=== PATIENT | female | born 1995 | race Caucasian/White ===

== ENCOUNTER → 2016-10-22 | Outpatient (CLI) | payer OTHER ==
[2016-10-22 08:05] LABS: Basophils % (A) 1 %; CH 28.9; Eosinophils # (A) 0.2 k/uL (0-0.7); Eosinophils % (A) 2 %; HCT 44.3 % (34.0-46.0); HGB 13.9 gm/dL (11.4-16.0); Luc # (Auto) 0.14; Luc % (Auto) 2; Lymphocytes # (A) 1.9 k/uL (1.0-4.8); Lymphocytes % (A) 26 %; MCH 28.4 pg (25.0-35.0); MCHC 31.4 g/dL (31.0-37.0); MCV 90.7 fL (80.0-100.0); Mean Platelet Volume 7.4; Monocytes # (A) 0.4 k/uL (0-1.0); Monocytes % (A) 5 %; Neutrophils # (A) 4.8 k/uL (1.3-7.7); Neutrophils % (A) 65 %; RBC 4.89 m/uL (3.80-5.40); RDW 13.8 % (11.5-15.5); WBC 7.4 k/uL (3.8-10.6); WBC (Perox) 8.12
[2016-10-22 08:25] LABS: Anion Gap 13 mmol/L; Blood Urea Nitrogen 9 mg/dL (7-17); Calcium 9.6 mg/dL (8.4-10.2); Carbon Dioxide 23 mmol/L (22-30); Chloride 106 mmol/L (98-107); Glucose 96 mg/dL (74-99); Non-African American GFR(MDRD) >60 (>60 ml/min/1.73 sqM); Potassium 4.3 mmol/L (3.5-5.1); Sodium 142 mmol/L (137-145)
== END | disposition home or self-care (01) ==
LOC: LABWHC1 07:22
PROVIDERS: ATTEND Orthopaedic Surgery
DX: Z01.812 Encounter for preprocedural laboratory examination (principal); D61.3 Idiopathic aplastic anemia
CPT/HCPCS: 36415; 80048; 85025

== ENCOUNTER → 2018-01-19 | Outpatient (CLI) | payer OTHER ==
--- NOTE | 2018-01-19 09:35 | XR ---
EXAMINATION TYPE: XR femur LT DATE OF EXAM: 01/19/2018 COMPARISON: 03/22/2016 HISTORY: Left hip pain TECHNIQUE: 4 views are submitted FINDINGS: Postsurgical changes are noted. Chronic appearing deformity the femoral head appears chroni c with mild narrowing of the joint space.. No acute fracture. No dislocation. IMPRESSION: 1. Postsurgical changes.
== END ==
LOC: RADXRMAIN 08:34
PROVIDERS: ATTEND Family Medicine
DX: M25.552 Pain in left hip (principal); Z98.890 Other specified postprocedural states

== ENCOUNTER → 2019-09-29 | Outpatient (CLI) | payer OTHER ==
--- NOTE | 2019-09-29 10:20 | US ---
EXAMINATION TYPE: US OB >= 14 wk fetus DATE OF EXAM: 09/29/2019 COMPARISON: None CLINICAL HISTORY: Z36 CONFIRM DATES Unknown LMP. Dates. TECHNIQUE: Transabdominal (TA) GESTATIONAL AGE / DATING Physician Established: Not yet established Dates by LMP: LMP unknown Dates by First Scan: No previous this is first scan Dates by Current Scan: (15 weeks/2 days) EDC: 03/20/2020 Beta HCG (if available): Not available at this time SURVEY IUP: Single PLACENTA: Anterior PREVIA: No Previa PATIRCK: 12.5 cm Normal CERVICAL LENGTH (transabdominal: norm > 3.0cm): 4.0 cm BIOMETRY PRESENTATION: Transverse lie with head to maternal left BPD: 3.0 cm 15 weeks / 3 days HC: 10.7 cm 15 weeks / 1 days AC: 8.9 cm 15 weeks / 1 days FL: 1.4 cm 14 weeks / 1 days ESTIMATED WEIGHT IN GRAMS: 104.5 grams ESTIMATED WEIGHT IN LBS/OZ: 0 lbs. 4 oz. HC/AC: 1.2 Normal FL/AC: 16.0 HEART RATE: 136 bpm RHYTHM: Normal IMPRESSION: Single viable IUP measuring 15 weeks 2 days. Heart rate 136 bpm and an EDC of 03/20/2020.
== END | disposition home or self-care (01) ==
LOC: RADUSWWP 09:40
PROVIDERS: ATTEND Obstetrics & Gynecology
DX: Z36.89 Encounter for other specified antenatal screening (principal); Z3A.15 15 weeks gestation of pregnancy
CPT/HCPCS: 76805

== ENCOUNTER → 2019-11-12 | Outpatient (CLI) | payer OTHER ==
[2019-11-12 09:38] LABS: HCT 39.6 % (34.0-46.0); MCH 30.1 pg (25.0-35.0); MCHC 32.9 g/dL (31.0-37.0); MCV 91.6 fL (80.0-100.0); Mean Platelet Volume 8.6; Platelet Count 257 k/uL (150-450); RBC 4.32 m/uL (3.80-5.40); WBC 12.6 k/uL (3.8-10.6)
[2019-11-12 16:25] LABS: African American GFR (CKD) 147.9 (60.0-200.0); Non-African American GFR(CKD) 127.6 (60.0-200.0)
[2019-11-12 17:14] LABS: HIV 1 AB Non-Reactive (Non-Reactive); HIV 2 AB Non-Reactive (Non-Reactive); HIV AB P24 Non-Reactive (Non-Reactive); HIV P24 AG Non-Reactive (Non-Reactive)
[2019-11-12 18:34] LABS: Hepatitis B Surface Antigen Non-Reactive (Non-Reactive)
[2019-11-15 04:43] LABS: Toxoplasma Antibody (IgG) <3.0 IU/mL (<7.2); Toxoplasma Antibody (IgM) <3.0 AU/mL (<8.0)
== END | disposition home or self-care (01) ==
LOC: LABWHC1 08:33
PROVIDERS: ATTEND Obstetrics & Gynecology
DX: Z34.82 Encounter for supervision of other normal pregnancy, second trimester (principal)
CPT/HCPCS: 36415; 82565; 82947; 85027; 86762; 86777; 86778; 86780; 86850; 86900; 86901; 87340; 87390

== ENCOUNTER 2020-03-13 13:09 | Outpatient (CLI) | payer OTHER ==
[2020-03-13 15:19] VITALS: BP 105/63; PULSE 102; RESP 16; TEMP 96.8
--- NOTE | 2020-03-13 17:02 | P.MSEPDOC ---
Presenting Problems - Arrival Data Date of Arrival on Unit: 03/13/20 Time of Arrival on Unit: 13:10 Mode of Transport: Ambulatory - Complaint OB-Reason for Admission/Chief Complaint: Possible Onset of Labor, Rule Out SROM, Other Comment: nauesa and vomiting this am. Medical History - Information : 2 Para: 1 Term: 1 : 0 Abortions: Spontaneous or Elective: 0 Number of Living Children: 1 - Gestational Age Gestational Age by AKILAH (wks/days): 39 Weeks and 0 Days - History Comment: no problems to date Review of Systems - Review of Systems Constitutional: No problems Breast: No problems ENT: No problems Cardiovascular: No problems Respiratory: No problems Gastrointestinal: No problems Genitourinary: No problems Musculoskeletal: No problems Neurological: No problems Skin: No problems Vital Signs - Temperature Temperature: 96.8 F Temperature Source: Temporal Artery Scan - Pulse Right Radial Pulse Rate: 102 Pulse Assessment Method: Automatic Cuff - Respirations Respiratory Rate: 16 Oxygen Delivery Method: Room Air O2 Sat by Pulse Oximetry: 98 - Blood Pressure Right Arm Blood Pressure: 105/63 Blood Pressure Mean: 77 Blood Pressure Source: Automatic Cuff Medical Screen Scoring (Pre) - Cervical Exam Dilation: 0 cm = 0 Effacement: Exam Deferred Membranes: Intact - Uterine Contractions Frequency: > 5 minutes apart = 1 Duration: N/A Intensity: N/A - Maternal Vital Signs Maternal Temperature: N/A Maternal Blood Pressure: N/A Signs of Preeclampsia: N/A, Nausea/Vomiting = 1 Maternal Respirations: N/A - Maternal Trauma Maternal Trauma: N/A - Assessment - Baby A Baseline FHR: 120 Heart Rate - NICHD Category: Category I (Normal) = 0 NST: Reactive Position: N/A Station: N/A - Total Score - Baby A Total Score - Baby A: 2 - Total Score - Baby B Total Score - Baby B: 2 - Total Score - Baby C Total Score - Baby C: 2 - Level of Risk - Baby A Level of Risk - Baby A: Low (0-5) - Level of Risk - Baby B Level of Risk - Baby B: Low (0-5) - Level of Risk - Baby C Level of Risk - Baby C: Low (0-5) Physician Notification (Pre) - Physician Notified Physician Notified Date: 03/13/20 Physician Notified Time: 13:20 New Order Received: Yes - Notification Comment Comment: observe, test for srom,nst, call report. Disposition - Disposition OB Disposition: Observe, Discharge to home, Written follow up instructions reviewed Discharge Date: 03/13/20 Discharge Time: 15:00 I agree with the RN Medical Screening Exam: Yes Risk & Benefit of care provided described in d/c instruction: Yes Diagnosis: FALSE LABOR AT OR AFTER 37 COMPLETED WEEKS OF GESTATION
== END 2020-03-13 15:00 | disposition home or self-care (01) ==
LOC: FBPOP 13:09
PROVIDERS: ATTEND Obstetrics & Gynecology
DX: O47.1 False labor at or after 37 completed weeks of gestation (principal); Z3A.39 39 weeks gestation of pregnancy
CPT/HCPCS: 59025; 84112; G0463; 99213

== ENCOUNTER 2020-03-20 06:02 | Inpatient (IN) | payer OTHER ==
[2020-03-20] MEDS ORDERED: TERBUTALINE 1 MG/ML VIAL SQ PRN (06:20)
[2020-03-20] MEDS ORDERED: OXYTOCIN 10 UNIT/ML 1 ML VIAL IM PRN (06:20)
[2020-03-20] MEDS ORDERED: METHYLERGONOVINE 0.2 MG/ML 1 ML AMP IM PRN (06:20)
[2020-03-20] MEDS ORDERED: CARBOPROST TROMETHAMINE 250 MCG/ML 1 ML AMP IM PRN (06:20)
[2020-03-20] MEDS ORDERED: LIDOCAINE 0.5% (PF) 5 MG/ML (50 ML SDV) SQ PRN (06:20)
[2020-03-20] MEDS ORDERED: AMPICILLIN 2,000 MG in SODIUM CHLORIDE 0.9% 100 ML IVPB ONE (06:30)
[2020-03-20] MEDS ORDERED: OXYTOCIN 30 UNITS/500 ML NS 30 UNIT in SALINE 1 500ML.BAG IV SCH (06:30)
[2020-03-20] MEDS: LACTATED RINGERS 1,000 ML IV SCH ×3 (06:32→12:58)
[2020-03-20 06:52] LABS: Basophils % (A) 0 %; Eosinophils # (A) 0.1 k/uL (0-0.7); Eosinophils % (A) 1 %; HCT 35.7 % (34.0-46.0); HGB 11.7 gm/dL (11.4-16.0); Hypochromasia Slight; Lymphocytes # (A) 2.4 k/uL (1.0-4.8); Lymphocytes % (A) 23 %; MCH 28.5 pg (25.0-35.0); MCHC 32.8 g/dL (31.0-37.0); MCV 86.9 fL (80.0-100.0); Monocytes # (A) 0.5 k/uL (0-1.0); Monocytes % (A) 5 %; Neutrophils # (A) 7.4 k/uL (1.3-7.7); Neutrophils % (A) 70 %; Platelet Count 253 k/uL (150-450); RBC 4.11 m/uL (3.80-5.40); RDW 13.4 % (11.5-15.5); WBC 10.5 k/uL (3.8-10.6)
--- NOTE | 2020-03-20 07:16 | P.HPOB ---
History of Present Illness H&P Date: 03/20/20 Chief Complaint: Induction of labor 24-year-old presents at 40 weeks' gestation for induction of labor. Her cervix is 3 cm dilated, 80% effaced, and -2 station. She is thee irregularly. heart tones 135 with moderate variability and reactive. Review of Systems All systems: negative Constitutional: Denies chills, Denies fever Eyes: denies blurred vision, denies pain Ears, nose, mouth and throat: Denies headache, Denies sore throat Cardiovascular: Denies chest pain, Denies shortness of breath Respiratory: Denies cough Gastrointestinal: Denies abdominal pain, Denies diarrhea, Denies nausea, Denies vomiting Genitourinary: Denies dysuria, Denies hematuria Musculoskeletal: Denies myalgias Integumentary: Denies pruritus, Denies rash Neurological: Denies numbness, Denies weakness Psychiatric: Denies anxiety, Denies depression Endocrine: Denies fatigue, Denies weight change Past Medical History Past Medical History: No Reported History Additional Past Medical History / Comment(s): Obstetric history: She's had one previous vaginal delivery. This is her second . She's had care with me since 15 weeks gestation at which time an ultrasound confirmed she is due 03/20/2020. Blood type is O+, amylase negative, rubella immune, RPR nonreactive, hepatitis B-, GBS positive. History of Any Multi-Drug Resistant Organisms: None Reported Additional Past Surgical History / Comment(s): left hip surgery as an infant Past Anesthesia/Blood Transfusion Reactions: No Reported Reaction Past Psychological History: Anxiety, Depression Smoking Status: Never smoker Past Alcohol Use History: None Reported Past Drug Use History: None Reported - Past Family History Mother Family Medical History: Cancer Additional Family Medical History / Comment(s): grandmother breast CA Father Family Medical History: Myocardial Infarction ([place]) Additional Family Medical History / Comment(s): grandfather had [place] Medications and Allergies Home Medications Medication Instructions Recorded Confirmed Type Pnv,Calcium 72/Iron/Folic Acid 1 each PO DAILY 03/13/20 03/20/20 History [ Plus Tablet] Calcium Carbonate [Calcium] 25 mg PO 03/20/20 History Allergies Allergy/AdvReac Type Severity Reaction Status Date / Time No Known Allergies Allergy Verified 03/12/16 17:33 Exam Osteopathic Statement: *. No significant issues noted on an osteopathic structural exam other than those noted in the History and Physical/Consult. Vital Signs Temp Pulse Resp BP Pulse Ox 03/20/20 06:15 96.6 F L 71 18 112/70 99 Intake and Output 03/19/20 03/20/20 03/20/20 22:59 06:59 14:59 Other: Weight 91.626 kg Heart: Regular rate and rhythm Lungs: Clear to auscultation bilaterally Abdomen: Soft, nontender Extremities: Negative Homans sign Results Result Diagrams: 03/20/20 06:20 Assessment and Plan (1) Normal labor Current Visit: Yes Status: Acute Code(s): O80 - ENCOUNTER FOR FULL-TERM UNCOMPLICATED DELIVERY; Z37.9 - OUTCOME OF DELIVERY, UNSPECIFIED SNOMED Code(s ): 84806469 Plan: 1. Admit to family place 2. Induction of labor with amniotomy and Pitocin 3. Anticipate normal vaginal delivery
[2020-03-20] MEDS ORDERED: ROPIVACAINE 100 MG, fentaNYL (PF) 200 MCG in SODIUM CHLORIDE 0.9% 76 ML EPIDURAL ONE (09:56)
[2020-03-20] MEDS ORDERED: AMPICILLIN 1,000 MG in SODIUM CHLORIDE 0.9% 50 ML IVPB SCH (10:30)
[2020-03-20] MEDS ORDERED: SIMETHICONE 80 MG CHEWABLE PO PRN (14:10)
[2020-03-20] MEDS ORDERED: HYDROCORTISONE 2.5% RECTAL CREAM 30 GM TUBE RECTAL PRN (14:10)
[2020-03-20] MEDS ORDERED: LANOLIN CREAM 5 GM TUBE TOPICAL PRN (14:10)
[2020-03-20] MEDS ORDERED: WITCH HAZEL 1 EACH MED..PAD TOPICAL PRN (14:10)
[2020-03-20] MEDS ORDERED: diphenhydrAMINE 50 MG CAP PO PRN (14:10)
[2020-03-20] MEDS ORDERED: diphenhydrAMINE 25 MG CAP PO PRN (14:10)
[2020-03-20] MEDS ORDERED: ZOLPIDEM 5 MG TAB PO PRN (14:10)
[2020-03-20] MEDS ORDERED: diphenhydrAMINE 50 MG/ML 1 ML VIAL IVP PRN ×2 (14:10)
[2020-03-20] MEDS ORDERED: BENZOCAINE/MENTHOL SPRAY 1 GM/SPRAY AEROSOL TOPICAL PRN (14:10)
[2020-03-20] MEDS ORDERED: OXYTOCIN 20 UNITS/1000 ML NS 1,000 ML IV SCH (14:15)
[2020-03-20 15:35] VITALS: RESP 16
[2020-03-20] MEDS: IBUPROFEN 600 MG TAB PO PRN (17:19)
[2020-03-20] MEDS: SENNOSIDES-DOCUSATE SODIUM 1 EACH TAB PO SCH (19:36)
[2020-03-20] MEDS: ACETAMINOPHEN TAB 325 MG TAB PO PRN (22:06)
[2020-03-21] MEDS: IBUPROFEN 600 MG TAB PO PRN ×4 (02:02→21:11)
[2020-03-21] MEDS: ACETAMINOPHEN TAB 325 MG TAB PO PRN ×3 (05:57→17:50)
[2020-03-21 06:13] LABS: Basophils % (A) 0 %; Eosinophils # (A) 0.2 k/uL (0-0.7); Eosinophils % (A) 2 %; HCT 31.4 % (34.0-46.0); HGB 10.2 gm/dL (11.4-16.0); Hypochromasia Slight; Lymphocytes # (A) 2.6 k/uL (1.0-4.8); Lymphocytes % (A) 22 %; MCH 28.5 pg (25.0-35.0); MCHC 32.5 g/dL (31.0-37.0); MCV 87.7 fL (80.0-100.0); Mean Platelet Volume 9.3; Monocytes # (A) 0.6 k/uL (0-1.0); Monocytes % (A) 5 %; Neutrophils # (A) 8.5 k/uL (1.3-7.7); Neutrophils % (A) 70 %; Platelet Count 244 k/uL (150-450); RBC 3.58 m/uL (3.80-5.40); RDW 13.4 % (11.5-15.5); WBC 12.2 k/uL (3.8-10.6)
--- NOTE | 2020-03-21 07:19 | P.PROBDLV ---
Vaginal Delivery Note - . Vaginal Delivery Note: 24-year-old presents at 40 weeks' gestation for induction of labor. Her cervix is 3 cm dilated, 80% effaced, and -2 station. She is thee irregularly. heart tones 135 with moderate variability and reactive. Pitocin was started. Amniotomy performed at 7:03 AM and clear fluid noted. When she was uncomfortable she did get an epidural. Her cervix was completely dilated at 1337. She pushed, delivered a viable female infant over intact perineum under epidural anesthesia at 1351. Head delivered OA, anterior shoulder delivered gentle downward guidance of the posterior shoulder and rest of body. Nose and mouth bulb suctioned, cord clamped and cut, infant placed on mother's abdomen. Apgars 8, 9, weight 7 lbs. 12 oz. Placenta delivered spontaneously, intact with three-vessel cord at 1354. Vagina, cervix, perineum inspected. No lacerations noted. Estimated blood loss 200 mL. Mother and baby in stable condition.
--- NOTE | 2020-03-21 07:37 | P.DS ---
Providers Date of admission: 03/20/20 06:02 Expected date of discharge: 03/21/20 Attending physician: Suzy Blair Primary care physician: Stated None - Discharge Diagnosis(es) (1) Normal labor Current Visit: Yes Status: Resolved (2) Normal vaginal delivery Current Visit: No Status: Acute Hospital Course: Patient presented for induction of labor. She underwent a normal vaginal delivery. course was uncomplicated. She'll be discharged home day #1 in stable condition follow-up with me in 6 weeks. Plan - Discharge Summary New Discharge Prescriptions: New Ibuprofen [Motrin] 600 mg PO Q6HR PRN #30 tab PRN Reason: Mild Pain Or Fever >= 100.5 No Action Pnv,Calcium 72/Iron/Folic Acid [ Plus Tablet] 1 each PO DAILY Calcium Carbonate [Calcium] 25 mg PO Discharge Medication List Pnv,Calcium 72/Iron/Folic Acid [ Plus Tablet] 1 each PO DAILY 03/13/20 [History] Calcium Carbonate [Calcium] 25 mg PO 03/20/20 [History] Ibuprofen [Motrin] 600 mg PO Q6HR PRN #30 tab 03/21/20 [Rx] Follow up Appointment(s)/Referral(s): Suzy Blair DO [Doctor of Osteopathic Medicine] - 6 Weeks Discharge Disposition: HOME SELF-CARE
[2020-03-21] MEDS: SENNOSIDES-DOCUSATE SODIUM 1 EACH TAB PO SCH ×2 (08:57→21:12)
[2020-03-22] MEDS: ACETAMINOPHEN TAB 325 MG TAB PO PRN ×2 (02:11→14:46)
[2020-03-22] MEDS: IBUPROFEN 600 MG TAB PO PRN (07:56)
[2020-03-22 10:32] VITALS: BP 115/74; PULSE 55; TEMP 98.2
[2020-03-22] MEDS: SENNOSIDES-DOCUSATE SODIUM 1 EACH TAB PO SCH (10:32)
== END 2020-03-22 16:00 | disposition home or self-care (01) | DRG 807 ==
LOC: 4FBP 06:02
PROVIDERS: ADMIT Obstetrics & Gynecology; ATTEND Obstetrics & Gynecology
PROC: 3E033VJ Introduction of Other Hormone into Peripheral Vein, Percutaneous Approach (ICD-10-PCS; 2020-03-20)
PROC: 3E0R3BZ Introduction of Anesthetic Agent into Spinal Canal, Percutaneous Approach (ICD-10-PCS; 2020-03-20)
PROC: 10E0XZZ Delivery of Products of Conception, External Approach (ICD-10-PCS; principal; 2020-03-21)
PROC: 10907ZC Drainage of Amniotic Fluid, Therapeutic from Products of Conception, Via Natural or Artificial Opening (ICD-10-PCS; 2020-03-21)
DX: O99.824 Streptococcus B carrier state complicating childbirth (principal); Z37.0 Single live birth; Z3A.40 40 weeks gestation of pregnancy; Z79.899 Other long term (current) drug therapy; Z86.59 Personal history of other mental and behavioral disorders; Z80.3 Family history of malignant neoplasm of breast; Z82.49 Family history of ischemic heart disease and other diseases of the circulatory system
CPT/HCPCS: 85025; 86850; 86900; 86901; 88307

== ENCOUNTER 2021-03-10 20:59 | Inpatient (IN) | payer MEDICAID, OTHER ==
--- NOTE | 2021-03-10 21:28 | ED ---
Psych HPI - General Stated Complaint: Mental Health Time Seen by Provider: 03/10/21 21:03 Source: patient Mode of arrival: ambulatory - History of Present Illness Initial Comments: is 25-year-old woman who presents to have psychiatric evaluation. The patient is concerned that she has been increasingly depressed over the past few days to weeks. She states she has done some cutting recently mainly to the right forearm. She states her family is also told her that she appears to be having some auditory and visual hallucinations. The patient states that she has been using amphetamine recently and believes this is contributing to things. MD Complaint: suicidal ideation, feels depressed -: week(s) Associated Psychiatric Symptoms: delusions Quality: getting worse Improves With: none Worsens With: drug use Context: recent drug abuse Associated Symptoms: denies other symptoms - Related Data Home Medications Medication Instructions Recorded Confirmed Pnv,Calcium 72/Iron/Folic Acid 1 each PO DAILY 03/13/20 03/20/20 [ Plus Tablet] Calcium Carbonate [Calcium] 25 mg PO 03/20/20 Previous Rx's Medication Instructions Recorded Ibuprofen [Motrin] 600 mg PO Q6HR PRN #30 tab 03/21/20 Allergies Allergy/AdvReac Type Severity Reaction Status Date / Time No Known Allergies Allergy Verified 03/10/21 21:02 Review of Systems ROS Statement: Those systems with pertinent positive or pertinent negative responses have been documented in the HPI. ROS Other: All systems not noted in ROS Statement are negative. Constitutional: Denies: fever, chills Respiratory: Denies: cough, dyspnea Cardiovascular: Denies: chest pain, palpitations Gastrointestinal: Denies: abdominal pain, vomiting, diarrhea Genitourinary: Denies: dysuria, hematuria Musculoskeletal: Denies: back pain Skin: Denies: rash Neurological: Denies: headache Psychiatric: Reports: depression, auditory hallucinations, visual hallucinations, suicidal thoughts. Denies: homicidal thoughts Past Medical History Past Medical History: No Reported History Additional Past Medical History / Comment(s): Obstetric history: She's had one previous vaginal delivery. This is her second . She's had care with me since 15 weeks gestation at which time an ultrasound confirmed she is due 03/20/2020. Blood type is O+, amylase negative, rubella immune, RPR nonreactive, hepatitis B-, GBS positive. History of Any Multi-Drug Resistant Organisms: None Reported Additional Past Surgical History / Comment(s): left hip surgery as an Past Anesthesia/Blood Transfusion Reactions: No Reported Reaction Past Psychological History: Anxiety, Depression Smoking Status: Current every day smoker Past Alcohol Use History: None Reported Past Drug Use History: Methamphetamine - Past Family History Mother Family Medical History: Cancer Additional Family Medical History / Comment(s): grandmother breast CA Father Family Medical History: Myocardial Infarction ([place]) Additional Family Medical History / Comment(s): grandfather had [place] General Exam Limitations: no limitations General appearance: alert, in no apparent distress Head exam: Present: atraumatic, normocephalic Eye exam: Present: normal appearance. Absent: scleral icterus, conjunctival injection ENT exam: Present: normal oropharynx Respiratory exam: Present: normal lung sounds bilaterally. Absent: respiratory distress, wheezes, rales, rhonchi, stridor Cardiovascular Exam: Present: regular rate, normal rhythm, normal heart sounds. Absent: systolic murmur, diastolic murmur, rubs, gallop GI/Abdominal exam: Present: soft. Absent: distended, tenderness, guarding, re bound, rigid, mass Extremities exam: Present: normal inspection, normal capillary refill. Absent: pedal edema Back exam: Present: normal inspection Neurological exam: Present: alert, oriented X3, normal gait Psychiatric exam: Present: depressed, suicidal ideation. Absent: agitated, anxious, flat affect, manic, homicidal ideation Skin exam: Present: warm, dry, intact, normal color. Absent: rash Course Vital Signs 03/10/21 21:02 Temperature 98 F Pulse Rate 98 Respiratory 16 Rate Blood Pressure 118/81 O2 Sat by Pulse 100 Oximetry Medical Decision Making - Lab Data Lab Results 03/10/21 03/10/21 Range/Units 21:23 21:23 Urine Color Yellow Urine Appearance Cloudy H (Clear) Urine pH 6.5 (5.0-8.0) Ur Specific [place] 1.030 (1.001-1.035) Urine Protein Trace H (Negative) Urine Glucose (UA) Negative (Negative) Urine Ketones Negative (Negative) Urine Blood Negative (Negative) Urine Nitrite Negative (Negative) Urine Bilirubin Negative (Negative) Urine Urobilinogen 2.0 (<2.0) mg/dL Ur Leukocyte Esterase Negative (Negative) Urine RBC 5 (0-5) /hpf Urine WBC 3 (0-5) /hpf Ur Squamous Epith Cells 3 (0-4) /hpf Amorphous Sediment Rare H (None) /hpf Urine Mucus Moderate H (None) /hpf Urine HCG, Qual Not Detected (Not Detectd) Urine Opiates Screen Not Detected (NotDetected) Ur Oxycodone Screen Not Detected (NotDetected) Urine Methadone Screen Not Detected (NotDetected) Ur Propoxyphene Screen Not Detected (NotDetected) Ur Barbiturates Screen Not Detected (NotDetected) U Tricyclic Antidepress Not Detected (NotDetected) Ur Phencyclidine Scrn Not Detected (NotDetected) Ur Amphetamines Screen Detected H (NotDetected) U Methamphetamines Scrn Detected H (NotDetected) U Benzodiazepines Scrn Not Detected (NotDetected) Urine Cocaine Screen Not Detected (NotDetected) U Marijuana (THC) Screen Detected H (NotDetected) Disposition Clinical Impression: Mood disorder Disposition: ADMITTED IP TO THIS [facility] Condition: Fair Is patient prescribed a controlled substance at d/c from ED?: No
[2021-03-10 21:41] LABS: Amorphous Sediment,Urine Rare /hpf; Appearance,Urine Cloudy (Clear); Bilirubin,Urine Negative (Negative); Blood,Urine Negative (Negative); Color,Urine Yellow; Glucose,Urine (UA) Negative (Negative); Ketones,Urine Negative (Negative); Leukocyte Esterase,Urine Negative (Negative); Mucus,Urine Moderate /hpf; Nitrite,Urine Negative (Negative); PH, Urine 6.5 (5.0-8.0); Protein,Urine Trace (Negative); RBC,Urine 5 /hpf (0-5); Squamous Epithelial Cell,Urine 3 /hpf (0-4); WBC,Urine 3 /hpf (0-5)
[2021-03-10 21:47] LABS: Amphetamine Screen,Urine Detected (NotDetected); Barbiturate Screen,Urine Not Detected (NotDetected); Benzodiazepines Screen,Urine Not Detected (NotDetected); Cocaine Screen,Urine Not Detected (NotDetected); Methadone Screen, Urine Not Detected (NotDetected); Opiate Screen,Urine Not Detected (NotDetected); Oxycodone Screen, Urine Not Detected (NotDetected); Phencyclidine Screen,Urine Not Detected (NotDetected); Tricyclic Antidepressant,Urine Not Detected (NotDetected); Urn Cannabinoid Scrn Detected (NotDetected)
[2021-03-11] MEDS ORDERED: MAG HYDROX/AL HYDROX/SIMETH 30 ML CUP PO PRN (03:57)
[2021-03-11] MEDS ORDERED: MAGNESIUM HYDROXIDE 2,400 MG/10 ML CUP PO PRN (03:57)
[2021-03-11] MEDS ORDERED: HALOPERIDOL LACTATE 5 MG/ML 1 ML VIAL IM PRN (03:59)
[2021-03-11] MEDS ORDERED: LORazepam 2 MG/ML INJ IM PRN (04:04)
[2021-03-11 04:38] VITALS: RESP 18
[2021-03-11] MEDS ORDERED: NICOTINE 21MG/24HR PATCH TRANSDERM SCH (09:00)
--- NOTE | 2021-03-11 11:07 | P.HP ---
Psychiatric H&P - . H&P Date: 03/11/21 History & Physical: IDENTIFYING DATA: Luz is a 25-year-old single female admitted to the psychiatric unit involuntarily with complaints of depression, suicidal ideation and auditory hallucinations. HISTORY OF PRESENT ILLNESS: I reviewed the medical record and interviewed the patient. She has limited recollection of her experiences over the last several days. However, she is aware that her stepfather completed a petition for hospitalization. The petition read that she is depressed and hearing voices telling her to kill herself. She admitted to cutting herself intermittently over the last week (she has a history of self cutting beginning at age 11). She has a history of methamphetamine use. She began using methamphetamine when she was 16 years old. She relapsed to methamphetamine this year. Initially she was smoking methamphetamine but over the last few weeks prior to admission began injecting methamphetamine. She began experiencing worsening feelings of depression and was "hearing voices"she began injecting methamphetamine. She had thoughts of suicide but denied suicide attempts or plan. She described feelings of depression but denied current suicidal thoughts. It was difficult to separate depressive symptoms from that caused by her repeated methamphetamine use. She acknowledged decreased energy, fatigue, poor appetite and impaired sleep. She denied that she has had episodes of elevated mood or sustained irritability outside of use of methamphetamine. She denied persistent and uncontrolled anxiety. She only recently began experiencing auditory hallucinations and command hallucinations. She denied a past history of psychotic symptoms. She smokes marijuana and denied the use of other drugs. Appendectomy UDS was positive for methamphetamine, amphetamine and marijuana. Her breath alcohol level was negative. PAST PSYCHIATRIC HISTORY: She has had no prior psychiatric hospitalizations. She is never met with a mental health professional. She talked about her mother taking her to [facility] when she was 11 years old when she first began cutting. She alleged that she was denied services. PAST MEDICAL HISTORY: She denied a history of chronic medical problems ALLERGIES: Known drug ALLERGIES SUBSTANCE USE HISTORY: She has never been in a substance abuse treatment program or attended AA or NA. She began using methamphetamine she was 16. She described occasional use until this year. Over the last 2 weeks prior to admission she was injecting methamphetamine on a daily. She was supporting her methamphetamine use by stealing from family. She denied that she exchanged sex for drugs or sex for money to buy drugs. FAMILY PSYCHIATRIC/SUBSTANCE USE HISTORY: She was unaware of family history of mental health or substance use problems LEGAL HISTORY: She has pending charges of domestic violence. The father of her two children removed the children from her custody last week and has threatened to petition for full custody because of her methamphetamine use problems. SOCIAL HISTORY: She was born in [place] and raised by her mother and stepfather. Her biological father was not involved in her upbringing. She graduated from high school and attended [employer] for one year. She is currently unemployed. 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 She lives with her grandmother. She has 2 children with same father. The children are currently in the father's custody. MENTAL STATUS EXAM: She presented as a casually groomed young Filipino female with long unkept hair. She made intermittent eye contact but appeared to attend to the interview. She had superficial lacerations on her forearm. She had no prominent physical abnormalities. She had a sad facial expression and cried intermittently during the interview. She was alert and oriented to person, place and time. She has psychomotor retardation but no abnormal movement. He was slow but steady. Her speech was not spontaneous and had markedly decreased rate, volume and rhythm. She had no articulation difficulties. Her affect was depressed and not reactive. She denied current suicidal ideation and wishes. She denied homicidal ideation. She expressed feelings of hopelessness and helplessness. She ruminated about the loss of her children and the consequences of her drug use. She did not express ideas reference, paranoid ideation or delusions. Her thinking was concrete but her associations were coherent, logical goal-directed. She denied hallucinations did not appear to responding to internal stimuli. Global impression of intellect is average. She is aware of her substance use problems and expressed interest in substance use rehabilitation. STRENGTHS: Stable housing, supportive family, good physical health WEAKNESSES: Methamphetamine use, lack of income, problems, potential loss of custody of children IMPRESSION: She is a 25-year-old single Filipino female who presented to unit involuntarily. Her stepfather completed the petition describing depression, auditory hallucinations and suicidal ideation. She has a history of methamphetamine use and over the weeks prior to admission began injecting methamphetamine on at least a daily basis. Her depression and psychotic symptoms developed after she began injecting methamphetamine. As a result her drug or see has incurred legal problems and faces the potential loss of custody of her children. She should be treated inpatient basis with a combination of psychopharmacology and multimodal therapy. 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 Safety precautions. Consult medicine for the initial physical exam and medical history. sheep farm worker to complete initial psychosocial assessment and coordinate discharge and aftercare. Haldol and/or Ativan for agitation, aggression acute psychosis. Collateral information from family. Refer for residential substance abuse rehabilitation. Allergies Allergy/AdvReac Type Severity Reaction Status Date / Time No Known Allergies Allergy Verified 03/11/21 04:40 Vital Signs Temp 97.8 F 03/11/21 03:10 Pulse 89 03/11/21 03:10 Resp 18 03/11/21 03:10 BP 105/73 03/11/21 03:10 Pulse Ox 100 03/11/21 03:10 Intake & Output 03/10/21 03/11/21 03/11/21 18:59 06:59 18:59 Weight 55.5 kg Laboratory Last Values Urine Color Yellow 03/10/21 21:23 Urine Appearance Cloudy (Clear) H 03/10/21 21:23 Urine pH 6.5 (5.0-8.0) 03/10/21 21:23 Ur Specific [place] 1.030 (1.001-1.035) 03/10/21 21:23 Urine Protein Trace (Negative) H 03/10/21 21:23 Urine Glucose (UA) Negative (Negative) 03/10/21 21:23 Urine Ketones Negative (Negative) 03/10/21 21: Urine Blood Negative (Negative) 03/10/21 21:23 Urine Nitrite Negative (Negative) 03/10/21 21: Urine Bilirubin Negative (Negative) 03/10/21 21:23 Urine Urobilinogen 2.0 mg/dL (<2.0) 03/10/21 21:23 Ur Leukocyte Esterase Negative (Negative) 03/10/21 21:23 Urine RBC 5 /hpf (0-5) 03/10/21 21:23 Urine WBC 3 /hpf (0-5) 03/10/21 21:23 Ur Squamous Epith Cells 3 /hpf (0-4) 03/10/21 21:23 Amorphous Sediment Rare /hpf (None) H 03/10/21 21:23 Urine Mucus Moderate /hpf (None) H 03/10/21 21:23 Urine HCG, Qual Not Detected (Not Detectd) 03/10/21 21: Urine Opiates Screen Not Detected (NotDetected) 03/10/21 21:23 Ur Oxycodone Screen Not Detected (NotDetected) 03/10/21 21:23 Urine Methadone Screen Not Detected (NotDetected) 03/10/21 21: Ur Propoxyphene Screen Not Detected (NotDetected) 03/10/21 21:23 Ur Barbiturates Screen Not Detected (NotDetected) 03/10/21 21:23 U Tricyclic Antidepress Not Detected (NotDetected) 03/10/21 21:23 Ur Phencyclidine Scrn Not Detected (NotDetected) 03/10/21 21:23 Ur Amphetamines Screen Detected (NotDetected) H 03/10/21 21:23 U Methamphetamines Scrn Detected (NotDetected) H 03/10/21 21:23 U Benzodiazepines Scrn Not Detected (NotDetected) 03/10/21 21:23 Urine Cocaine Screen Not Detected (NotDetected) 03/10/21 21:23 U Marijuana (THC) Screen Detected (NotDetected) H 03/10/21 21:23 03/11/21 10:47
[2021-03-11] MEDS: LORazepam 1 MG TAB PO PRN ×2 (12:01→20:05)
[2021-03-11] MEDS: ACETAMINOPHEN TAB 325 MG TAB PO PRN (18:29)
[2021-03-11] MEDS: haloperidoL 5 MG TAB PO PRN (20:06)
--- NOTE | 2021-03-12 01:01 | P.MDCNMH ---
History of Present Illness H&P Date: 03/11/21 Chief Complaint: Suicidial ideation Reason for consult -medical H&P Ms. Dotson is a 25-year-old female with no significant past medical history other than left hip surgery as an infant admitted to the psych unit involuntarily with complaints of depression suicidal ideation and auditory hallucination. Patient states that she has been feeling depressed over the past several days, hearing voices to kill herself, so her stepfather dictation her for hospitalization. Patient states that she does not have significant past medical history but does have substance abuse for amphetamines and marijuana. Patient denies having any chest pain or palpitations. No fever chills or rigors. No cough or difficulty in breathing.. No abdominal pain nausea vomiting or diarrhea. No dysuria or hematuria. Patient denies having any weakness of her extremities. On reviewing the patient's vitals temperature 97.8, heart rate 89, respiratory 18, blood pressure 105/73 saturating 100% on room air. Patient had urine analysis that is negative for urine test and negative for leukocyte esterase and nitrites. Urine drug screen is positive for amphetamines methamphetamines and marijuana. Review of Systems REVIEW OF SYSTEMS: CONSTITUTIONAL: No fever, no malaise, no fatigue. HEENT: no headache, no neck stiffness, no blurring of vision CARDIOVASCULAR: No chest pain, palpitations or lower extremity swelling PULMONARY: No cough or SOB GASTROINTESTINAL: No abdominal pain nausea vomiting or diarrhea NEUROLOGICAL: NO weakness of extremities HEMATOLOGICAL: Denies any bleeding or petechiae. GENITOURINARY: Denies any burning micturition, frequency, or urgency. MUSCULOSKELETAL/RHEUMATOLOGICAL: Denies any joint pain, swelling, or any muscle pain. ENDOCRINE: denies dysuria or hematuria The rest of the 14-point review of systems is negative. Past Medical History Past Medical History: No Reported History Additional Past Medical History / Comment(s): Obstetric history: She's had one previous vaginal delivery. This is her second . She's had care with me since 15 weeks gestation at which time an ultrasound confirmed she is due 03/20/2020. Blood type is O+, amylase negative, rubella immune, RPR nonreactive, hepatitis B-, GBS positive. History of Any Multi-Drug Resistant Organisms: None Reported Additional Past Surgical History / Comment(s): left hip surgery as an infant Past Anesthesia/Blood Transfusion Reactions: No Reported Reaction Past Psychological History: Anxiety, Depression Smoking Status: Never smoker Past Alcohol Use History: None Reported Past Drug Use History: Methamphetamine - Past Family History Mother Family Medical History: Cancer Additional Family Medical History / Comment(s): grandmother breast CA Father Family Medical History: Myocardial Infarction ([place]) Additional Family Medical History / Comment(s): grandfather had [place] Medications and Allergies Home Medications Medication Instructions Recorded Confirmed Type Pnv,Calcium 72/Iron/Folic Acid 1 each PO DAILY 03/13/20 03/11/21 History [ Plus Tablet] Calcium Carbonate [Calcium] 25 mg PO DAILY 03/20/20 03/11/21 History Ibuprofen [Motrin] 600 mg PO Q6HR PRN #30 tab 03/21/20 03/11/21 Rx Allergies Allergy/AdvReac Type Severity Reaction Status Date / Time No Known Allergies Allergy Verified 03/11/21 04:40 Physical Exam Vitals: Vital Signs Temp Pulse Pulse Resp BP BP Pulse Ox 03/11/21 03:10 97.8 F 89 18 105/73 100 03/10/21 21:02 98 F 98 16 118/81 100 Intake and Output 03/10/21 03/11/21 03/11/21 22:59 06:59 14:59 Other: Weight 56.245 kg 55.5 kg PHYSICAL EXAMINATION: GENERAL: No distress HEENT: Pupils are round and equally reacting to light. EOMI. No scleral icterus. No conjunctival pallor. CARDIOVASCULAR: S1 and S2 present. No murmurs, rubs, or gallops. PULMONARY: Bilateral breath sounds are positive. No wheeze or crackles. ABDOMEN: Soft, nontender, normal bowel sounds. No guarding or rigidity. MUSCULOSKELETAL: No joint swelling or deformity. EXTREMITIES: No edema NEUROLOGICAL: Gross neurological examination did not reveal any focal deficits. SKIN:No rash Cranial Nerve Examination - Cranial Nerves Cranial Nerve II- Optic: Intact Cranial Nerve III- Oculomotor: Intact Cranial Nerve IV- Trochlear: Intact Cranial Nerve V- Trigeminal: Intact Cranial Nerve - Abducens: Intact Cranial Nerve VII- Facial: Intact Cranial Nerve VIII- Auditory: Intact Cranial Nerve IX- Glossopharyngeal: Intact Cranial Nerve X- Vagus: Intact Cranial Nerve XI- Accessory: Intact Cranial Nerve XII- Hypoglossal: Intact Results Labs: Abnormal Lab Results - Last 24 Hours (Table) 03/10/21 Range/Units 21:23 Urine Appearance Cloudy H (Clear) Urine Protein Trace H (Negative) Amorphous Sediment Rare H (None) /hpf Urine Mucus Moderate H (None) /hpf Ur Amphetamines Screen Detected H (NotDetected) U Methamphetamines Scrn Detected H (NotDetected) U Marijuana (THC) Screen Detected H (NotDetected) Assessment and Plan Assessment: ASSESSMENT Acute depressive disorder Urine drug screen positive for amphetamines, methamphetamines and marijuana Chronic left hip pain PLAN: Patient does not have chronic medical conditions and takes ibuprofen as needed for her left hip pain. To continue with ibuprofen as needed for pain. Management as per Psych team for her acute depressive disorder. Will follow the patient on as-needed basis. Thank you for the consultation.
[2021-03-12 08:38] LABS: Basophils # (A) 0.1 k/uL (0-0.2); Basophils % (A) 1 %; Eosinophils # (A) 0.4 k/uL (0-0.7); Eosinophils % (A) 6 %; HCT 42.1 % (34.0-46.0); HGB 13.9 gm/dL (11.4-16.0); Lymphocytes # (A) 3.1 k/uL (1.0-4.8); Lymphocytes % (A) 44 %; MCH 30.8 pg (25.0-35.0); MCV 93.4 fL (80.0-100.0); Monocytes # (A) 0.4 k/uL (0-1.0); Monocytes % (A) 5 %; Neutrophils # (A) 2.9 k/uL (1.3-7.7); Neutrophils % (A) 41 %; Platelet Count 247 k/uL (150-450); RDW 13.7 % (11.5-15.5); WBC 6.9 k/uL (3.8-10.6)
[2021-03-12 08:50] LABS: ALT 19 U/L (4-34); AST 24 U/L (14-36); African American GFR (CKD) >90 (>60 ml/min/1.73 sqM); Albumin 3.8 g/dL (3.5-5.0); Alkaline Phosphatase 90 U/L (38-126); Anion Gap 6 mmol/L; Blood Urea Nitrogen 15 mg/dL (7-17); Calcium 9.1 mg/dL (8.4-10.2); Carbon Dioxide 28 mmol/L (22-30); Chloride 104 mmol/L (98-107); Glucose 99 mg/dL (74-99); Non-African American GFR(CKD) >90 (>60 ml/min/1.73 sqM); Potassium 4.2 mmol/L (3.5-5.1); Sodium 138 mmol/L (137-145); Total Bilirubin 0.2 mg/dL (0.2-1.3)
--- NOTE | 2021-03-12 13:02 | P.PN ---
Progress Note - Text Progress Note Date: 03/12/21 Interval History: Patient was seen lying in her bed this morning and was directable and agreeable to speak with typewriters functional tester in the office. Patient appeared to be depressed and had a constricted affect. She also claims that she's been feeling anxious. She was persistent on discharge and has poor insight into her need for treatment and also her substance use. She was minimizing her methamphetamine use however did claim that she uses it every day. She states that she misses her children and was very hesitant about going to rehab. She claims that "I could lose my kids". She was agreeable to try Prozac today as an antidepressant and have questions about the medication which were answered. She states that she has been sleeping "too much" at night and has been feeling tired during the day. At this time patient denies any suicidal or homical ideations, intent or plan. Patient denies any auditory, visual hallucinations and denies any paranoia or delusions. Patient denies any side effects from the medications and has been compliant with meds. Mental Status Exam: General Appearance: Patient appears to be thin, disheveled, stated age is alert, not cooperative. Behavior: Patient is calmly seated without any agitated behavior. Not cooperative. Constricted Speech: Patient's speech is fluent and nonpressured. Mood/Affect: Mood is depressed and anxious, affect is congruent and constricted. Suicidality/Homicidality: Patient denies having any suicidal or homicidal ideation intent or plan. Perceptions: Patient denies any visual hallucinations and denies any auditory hallucinations Though content/process: Minimizing her substance use and also her need for mental health treatment. Focused on discharge. Memory and concentration: AOX3, grossly intact for the purposes of this session Judgment and insight: Poor Assessment Depressive disorder unspecified, rule out substance-induced depressive disorder vs major depressive disorder Methamphetamine abuse Cannabis use disorder Plan: -Patient continues to meet criteria for inpatient psychiatric admission for symptom stabilization and safety. Patient has signed adult voluntary form and medication consent and was placed in patient's chart. -Medications: Patient is agreeable to start Prozac 20 mg daily for mood/anxiety today. -When necessary Ativan and Haldol for agitation/aggression. -NRT -not needed this patient does not smoke -SW on board for discharge planning. Encouraged the patient to participate in milieu. Patient is still unsure of whether she wants to go to rehab or do outpatient for her substance use treatment. Likely discharge in 2-3 days.
[2021-03-12] MEDS: FLUoxetine HCL 20 MG CAP PO SCH (13:38)
[2021-03-12 14:48] LABS: Chol/HDL Ratio 3.03; Cholesterol 109 mg/dL (0-200); LDL Cholesterol,Calculated 56.2 mg/dL (0.0-131.0)
[2021-03-12 16:31] LABS: Hemoglobin A1C 5.5 % (4.0-6.0)
[2021-03-12] MEDS: LORazepam 1 MG TAB PO PRN (21:47)
[2021-03-12] MEDS: haloperidoL 5 MG TAB PO PRN (22:39)
[2021-03-13 07:29] VITALS: TEMP 97.7
[2021-03-13] MEDS: FLUoxetine HCL 20 MG CAP PO SCH (08:59)
[2021-03-13] MEDS ORDERED: LORazepam 0.5 MG TAB PO PRN (10:27)
[2021-03-13] MEDS ORDERED: MELATONIN 3 MG TABLET PO PRN (10:28)
--- NOTE | 2021-03-13 10:44 | P.PN ---
Progress Note - Text Progress Note Date: 03/13/21 Interval History: Patient was seen lying in her bed this morning and was directable and agreeable to speak with chief writer in the office. She was difficult to awaken this morning. She continues to have a depressed affect and was tearful at times when talking about her kids. She states that she was hearing voices last night and took a Haldol and was feeling "extra tired" this morning. She continues to not go to groups and not participate or be visible on the unit and mainly isolated in her room. She continues to be impulsive and have poor insight and preoccupied with discharge. She catastrophizes her situation and misinterprets what the plan is for her treatment. Patient appeared to be depressed and had a constricted affect. She continues to claim the she does not want to go to rehab and wants to go home to her kids. At this time patient denies any suicidal or homical ideations, intent or plan. Patient denies any auditory, visual hallucinations and denies any paranoia or delusions. Patient denies any side effects from the medications and has been compliant with meds. Mental Status Exam: General Appearance: Patient appears to be thin, disheveled, stated age is alert, not cooperative. Argumentative Behavior: Patient is calmly seated without any agitated behavior. Argumentative Speech: Patient's speech is fluent and nonpressured. Mood/Affect: Mood is "the same", affect is congruent and tearful Suicidality/Homicidality: Patient denies having any suicidal or homicidal ideation intent or plan. Perceptions: Patient denies any visual hallucinations and denies any auditory hallucinations Though content/process: Minimizing her substance use and also her need for [facility] treatment. Focused on discharge. Memory and concentration: AOX3, grossly intact for the purposes of this session Judgment and insight: Poor Assessment Major depressive disorder with psychotic features Methamphetamine abuse Cannabis use disorder Plan: -Patient continues to meet criteria for inpatient psychiatric admission for symptom stabilization and safety. Patient has signed adult voluntary form and medication consent and was placed in patient's chart. -Medications: increase Prozac 40 mg daily for mood/anxiety today. added prolixin 2mg qhs for psychotic features. added melatonin 3mg qhs prn for insomnia -When necessary Ativan and Haldol for agitation/aggression. -NRT -not needed this patient does not smoke -SW on board for discharge planning. Encouraged the patient to participate in milieu. Patient is still unsure of whether she wants to go to rehab or do outpatient for her substance use treatment, SW to give patient access line to call for rehab appointment. Likely discharge in 2-3 days.
[2021-03-14] MEDS: FLUoxetine HCL 20 MG CAP PO SCH (09:12)
[2021-03-14] MEDS: ACETAMINOPHEN TAB 325 MG TAB PO PRN (11:26)
--- NOTE | 2021-03-14 16:09 | P.PN ---
Progress Note - Text Progress Note Date: 03/14/21 S&O: Patient was seen for routine follow-up examination in the office. She is polite and cooperative. She is eager to go home and be with her one and 5-year-old kids. She said she has called the rehab places and is waiting to hear from them. Apparently they want her charts before they can decide. Patient is on Prozac and Prolixin. She said she never felt depressed and does not hear voices or get paranoid when she is not using meth. She was advised to discuss her medications with her psychiatrist. She denies any adverse effects from her medications. She does not have any other complaints or concerns. This is the right ambulatory female with good hygiene. She is polite and millie ative. She does not show any psychomotor agitation or retardation. Her speech is spontaneous relevant and goal-directed. Her mood is euthymic to tearful and affect is appropriate. She denies hallucinations or delusional thinking suicidal and homicidal ideas. She wants to go through the rehab and also wants to be with her children. She is well oriented with good memory concentration general fund of knowledge. A&P: She is improving and waiting to hear from rehab place. Continue current medications and therapy. She will discuss her medications with her psychiatrist.
[2021-03-15 07:00] VITALS: BP 100/59; PULSE 66
[2021-03-15] MEDS: FLUoxetine HCL 20 MG CAP PO SCH (08:38)
--- NOTE | 2021-03-15 10:13 | P.DS ---
Providers Date of admission: 03/11/21 02:35 Expected date of discharge: 03/15/21 Attending physician: Raul Barrientos MD Consults: 03/11/21 03:57 Consult Physician Routine Consulting Provider: Wei Rodrigez Consult Reason/Comments: h and p Do you want consulting provider notified?: Yes Primary care physician: [facility] Course: Patient had her psychiatric history and physical and also had a physical examination by Dr. Gallegos. After her psychiatric evaluation she was started on Prozac 40 mg a day and Prolixin 2 mg at bedtime for mood and psychosis. Her mood improved and her psychotic symptoms disappeared. He did not have any adverse effects from Prozac or Prolixin except initially then she was feeling a little bit tired. She said she did not have any psychotic symptoms or depression when she was not abusing drugs at all. She was counseled about all these things and it was agreed to discontinue her Prozac and Prolixin. She also received group therapy and individual therapy. She was counseled about the impact of substance abuse especially stimulant on her health and she agreed not to abuse it anymore. She also agreed to go through a rehab. She is scheduled to attend rehab within the next 10-15 days. She also agreed to continue her [facility] appointments starting on the 12th of this month. 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 Health Concerns: Not applicable Pertinent Studies: None Procedures: None Patient Condition at Discharge: Good Plan - Discharge Summary Discharge Rx Participant: No New Discharge Prescriptions: No Action Pnv,Calcium 72/Iron/Folic Acid [ Plus Tablet] 1 each PO DAILY Calcium Carbonate [Calcium] 25 mg PO DAILY Ibuprofen [Motrin] 600 mg PO Q6HR PRN #30 tab PRN Reason: Mild Pain Or Fever >= 100.5 Discharge Medication List Pnv,Calcium 72/Iron/Folic Acid [ Plus Tablet] 1 each PO DAILY 03/13/20 [History] Calcium Carbonate [Calcium] 25 mg PO DAILY 03/20/20 [History] Ibuprofen [Motrin] 600 mg PO Q6HR PRN #30 tab 03/21/20 [Rx] Follow up Appointment(s)/Referral(s): Wei Rodrigez MD [Primary Care Provider] - 1-2 days Activity/Diet/Wound Care/Special Instructions: Activity and diet as tolerated. Avoid the use of street drugs and alcohol. Take all medications as prescribed. When you are in need of refills on your medications please contact your medical provider and/or outpatient psychiatrist to have this done. Please go to scheduled outpatient appointment for aftercare treatment. If symptoms return or become worse, call the crisis line at and/or go to the nearest emergency room for evaluation. Discharge Disposition: HOME SELF-CARE
== END 2021-03-15 13:56 | disposition home or self-care (01) | DRG 885 ==
LOC: EC 20:59 → 3MHU 03-11 02:35
PROVIDERS: ADMIT Psychiatry & Neurology Psychiatry; ATTEND Psychiatry & Neurology Psychiatry
DX: F32.3 Major depressive disorder, single episode, severe with psychotic features (principal); R45.851 Suicidal ideations; F15.24 Other stimulant dependence with stimulant-induced mood disorder; F12.10 Cannabis abuse, uncomplicated; F17.200 Nicotine dependence, unspecified, uncomplicated; Z56.0 Unemployment, unspecified; Z65.3 Problems related to other legal circumstances; Z91.5 Personal history of self-harm
CPT/HCPCS: 80053; 80061; 80306; 81001; 81025; 82075; 83036; 84443; 85025; 99285

== ENCOUNTER → 2021-05-16 | Outpatient (CLI) | payer OTHER | END | disposition home or self-care (01) | LOC: LABWHC1 13:21 | PROVIDERS: ATTEND General Practice | DX: O02.81 Inappropriate change in quantitative human chorionic gonadotropin (hCG) in early pregnancy (principal); Z3A.00 Weeks of gestation of pregnancy not specified | CPT/HCPCS: 36415; 84702 ==

== ENCOUNTER 2021-05-27 21:28 | Emergency (ER) | payer OTHER ==
[2021-05-27 21:40] VITALS: TEMP 98
[2021-05-27 23:05] LABS: Basophils # (A) 0.1 k/uL (0-0.2); Basophils % (A) 1 %; Eosinophils # (A) 0.2 k/uL (0-0.7); Eosinophils % (A) 2 %; HCT 40.2 % (34.0-46.0); HGB 13.6 gm/dL (11.4-16.0); Lymphocytes # (A) 2.4 k/uL (1.0-4.8); Lymphocytes % (A) 22 %; MCHC 33.8 g/dL (31.0-37.0); MCV 91.6 fL (80.0-100.0); Mean Platelet Volume 7.7; Monocytes # (A) 0.5 k/uL (0-1.0); Monocytes % (A) 5 %; Neutrophils # (A) 7.6 k/uL (1.3-7.7); Neutrophils % (A) 70 %; Platelet Count 327 k/uL (150-450); RBC 4.38 m/uL (3.80-5.40); RDW 13.7 % (11.5-15.5); WBC 10.9 k/uL (3.8-10.6)
--- NOTE | 2021-05-27 23:12 | US ---
EXAMINATION TYPE: Transabdominal DATE OF EXAM: 05/27/2021 11:04 PM COMPARISON: NONE CLINICAL HISTORY: bleeding/cramping, 10wks. Bleeding and cramping x 1 day EXAM PERFORMED: Transabdominal (TA) EXAM MEASUREMENTS: GESTATIONAL AGE / DATING Physician Established: Not yet established Dates by LMP: LMP unknown Dates by First Scan: No previous this is first scan Dates by Current Scan for: (7 weeks/2 days) EDC: 01/11/2022 MATERNAL ANATOMY Uterus: 9.9 x 5.5 x 6.8cm Right Ovary: 2.5 x 1.6 x 1.4cm Left Ovary: 2.9 x 1.7 x 1.3cm Post CDS / Adnexa: wnl Presence of free fluid: no Presence of corpus luteal cyst: not seen Presence of subchorionic bleed: yes - 3.7 x 1.3 x 2.7cm GESTATION / SURVEY CRL: 1.1cm (7 weeks/2 days) Yolk Sac (normal less than 6mm): not seen IUP: Demise Date of LMP: Unknown Beta HcG (if available): Not available at time of exam IMPRESSION: There is intrauterine demise at approximately 7 weeks and 2 days. There is subchorionic hemorrh age.
[2021-05-27 23:23] LABS: ALT 19 U/L (4-34); AST 24 U/L (14-36); African American GFR (CKD) >90 (>60 ml/min/1.73 sqM); Albumin 4.4 g/dL (3.5-5.0); Alkaline Phosphatase 72 U/L (38-126); Anion Gap 9 mmol/L; Blood Urea Nitrogen 12 mg/dL (7-17); Calcium 9.5 mg/dL (8.4-10.2); Carbon Dioxide 26 mmol/L (22-30); Chloride 102 mmol/L (98-107); Glucose 87 mg/dL (74-99); Non-African American GFR(CKD) >90 (>60 ml/min/1.73 sqM); Potassium 3.7 mmol/L (3.5-5.1); Sodium 137 mmol/L (137-145); Total Bilirubin 0.4 mg/dL (0.2-1.3)
[2021-05-27 23:40] LABS: HCG,Quantitative Serum 8428.4 mIU/mL
--- NOTE | 2021-05-27 23:45 | ED ---
Female Urogenital HPI - General Chief complaint: Vaginal Bleeding Stated complaint: vaginal bleeding, 10 weeks preg Time Seen by Provider: 05/27/21 21:45 Source: patient Mode of arrival: ambulatory - History of Present Illness Initial comments: Patient is a 25-year-old female presenting to the emergency Department with complaints of vaginal bleeding started about an hour prior to arrival. She is currently a approximately 10 weeks . . She's been having some mil d abdominal cramping over the last couple days but did not think anything of it. She went to use the restroom today and wiped and noticed some darker colored blood. She denies any fevers or chills,abdominal pain, no nausea or vomiting. She has not yet seen her [employer]BER for this. She used to go see Dr. Blair however they stated they would not see her secondary her background of using drugs. She was going to see an VULCAN CREWMEMBER out of [facility]. She denies any chest pain or shortness of breath. She has no further complaints. - Related Data Home Medications Medication Instructions Recorded Confirmed Pnv,Calcium 72/Iron/Folic Acid 1 each PO DAILY 03/13/20 03/11/21 [ Plus Tablet] Calcium Carbonate [Calcium] 25 mg PO DAILY 03/20/20 03/11/21 Previous Rx's Medication Instructions Recorded Ibuprofen [Motrin] 600 mg PO Q6HR PRN #30 tab 03/21/20 Allergies Allergy/AdvReac Type Severity Reaction Status Date / Time No Known Allergies Allergy Verified 05/27/21 21:40 Review of Systems ROS Statement: Those systems with pertinent positive or pertinent negative responses have been documented in the HPI. ROS Other: All systems not noted in ROS Statement are negative. Past Medical History Past Medical History: No Reported History Additional Past Medical History / Comment(s): Obstetric history: She's had one previous vaginal delivery. This is her second . She's had care with me since 15 weeks gestation at which time an ultrasound confirmed she is due 03/20/2020. Blood type is O+, amylase negative, rubella immune, RPR nonreactive, hepatitis B-, GBS positive. History of Any Multi-Drug Resistant Organisms: None Reported Additional Past Surgical History / Comment(s): left hip surgery as an Past Anesthesia/Blood Transfusion Reactions: No Reported Reaction Past Psychological History: Anxiety, Depression Smoking Status: Never smoker Past Alcohol Use History: None Reported Past Drug Use History: Methamphetamine - Past Family History Mother Family Medical History: Cancer Additional Family Medical History / Comment(s): grandmother breast [place] Father Family Medical History: Myocardial Infarction ([place]) Additional Family Medical History / Comment(s): grandfather had [place] General Exam - General Exam Comments Initial Comments: GENERAL: Patient is well-developed and well-nourished. Patient is nontoxic and in no acute distress. HEAD: Atraumatic, normocephalic. EYES: Pupils equal round and reactive to light, extraocular movements intact, sclera anicteric, conjunctiva are normal. Eyelids were unremarkable. ENT: Nares patent, oropharynx clear without exudates. Moist mucous membranes. NECK: Normal range of motion, supple without lymphadenopathy or JVD. LUNGS: Unlabored respirations. Breath sounds clear to auscultation bilaterally and equal. No wheezes rales or rhonchi. HEART: Regular rate and rhythm without murmurs, rubs or gallops. ABDOMEN: Soft, nontender, normoactive bowel sounds. No guarding, no rebound. No masses appreciated. : Deferred MUSCULOSKELETAL: Normal extremities with adequate strength and normal range of motion, no pitting or edema. No clubbing or cyanosis. NEUROLOGICAL: Patient is alert and oriented x 3. SKIN: Warm, Dry, normal turgor, no rashes or lesions noted. Course Vital Signs 05/27/21 05/27/21 21:34 23:58 Temperature 98 F 98 F Pulse Rate 79 84 Respiratory 19 18 Rate Blood Pressure 115/78 113/71 O2 Sat by Pulse 98 100 Oximetry Medical Decision Making - Medical Decision Making Patient is a 25-year-old female, currently 10 weeks , presenting with vaginal bleeding and just started about an hour prior to arrival. She has been having some abdominal cramping over the last 2-3 days well. , VUL[employer] CREWMEMBER was Dr. Blair, it will be someone from [facility] according to patient. Labs are within normal limits. ultrasound shows an intrauterine demise at approximately 7 weeks. There is subchorionic hemorrhage as well. Patient's blood type is O+. Patient's hCG Quant was checked on 05/26/2021, it was 32,000, today 8 days later, it is 8400. I discussed the findings with the patient. She will follow up with her [employer]BER. Return parameters were discussed with her and she verbalized understanding. Case discussed with Dr. Nicole. - Lab Data Result diagrams: 05/27/21 22:38 05/27/21 22:38 Lab Results 05/27/21 05/27/21 05/27/21 Range/Units 22:38 22:38 22:38 WBC 10.9 H (3.8-10.6) k/uL RBC 4.38 (3.80-5.40) m/uL Hgb 13.6 (11.4-16.0) gm/dL Hct 40.2 (34.0-46.0) % MCV 91.6 (80.0-100.0) fL MCH 31.0 (25.0-35.0) pg MCHC 33.8 (31.0-37.0) g/dL RDW 13.7 (11.5-15.5) % Plt Count 327 (150-450) k/uL MPV 7.7 Neutrophils % 70 % Lymphocytes % 22 % Monocytes % 5 % Eosinophils % 2 % Basophils % 1 % Neutrophils # 7.6 (1.3-7.7) k/uL Lymphocytes # 2.4 (1.0-4.8) k/uL Monocytes # 0.5 (0-1.0) k/uL Eosinophils # 0.2 (0-0.7) k/uL Basophils # 0.1 (0-0.2) k/uL Sodium 137 (137-145) mmol/L Potassium 3.7 (3.5-5.1) mmol/L Chloride 102 (98-107) mmol/L Carbon Dioxide 26 (22-30) mmol/L Anion Gap 9 mmol/L BUN 12 (7-17) mg/dL Creatinine 0.49 L (0.52-1.04) mg/dL Est GFR (CKD-EPI)AfAm >90 (>60 ml/min/1.73 sqM) Est GFR (CKD-EPI)NonAf >90 (>60 ml/min/1.73 sqM) Glucose 87 (74-99) mg/dL Calcium 9.5 (8.4-10.2) mg/dL Total Bilirubin 0.4 (0.2-1.3) mg/dL AST 24 (14-36) U/L ALT 19 (4-34) U/L Alkaline Phosphatase 72 (38-126) U/L Total Protein 7.0 (6.3-8.2) g/dL Albumin 4.4 (3.5-5.0) g/dL HCG, Quant 8428.4 mIU/mL Urine Color Yellow Urine Appearance Clear (Clear) Urine pH 7.0 (5.0-8.0) Ur Specific Duncan 1.020 (1.001-1.035) Urine Protein Negative (Negative) Urine Glucose (UA) Negative (Negative) Urine Ketones Negative (Negative) Urine Blood Large H (Negative) Urine Nitrite Negative (Negative) Urine Bilirubin Negative (Negative) Urine Urobilinogen <2.0 (<2.0) mg/dL Ur Leukocyte Esterase Moderate H (Negative) Urine RBC 1 (0-5) /hpf Urine WBC 4 (0-5) /hpf Ur Squamous Epith Cells 5 H (0-4) /hpf Urine Mucus Rare H (None) /hpf Blood Type Blood Type Recheck Bld Type Recheck Status 05/27/21 Range/Units 22:38 WBC (3.8-10.6) k/uL RBC (3.80-5.40) m/uL Hgb (11.4-16.0) gm/dL Hct (34.0-46.0) % MCV (80.0-100.0) fL MCH (25.0-35.0) pg MCHC (31.0-37.0) g/dL RDW (11.5-15.5) % Plt Count (150-450) k/uL MPV Neutrophils % % Lymphocytes % % Monocytes % % Eosinophils % % Basophils % % Neutrophils # (1.3-7.7) k/uL Lymphocytes # (1.0-4.8) k/uL Monocytes # (0-1.0) k/uL Eosinophils # (0-0.7) k/uL Basophils # (0-0.2) k/uL Sodium (137-145) mmol/L Potassium (3.5-5.1) mmol/L Chloride (98-107) mmol/L Carbon Dioxide (22-30) mmol/L Anion Gap mmol/L BUN (7-17) mg/dL Creatinine (0.52-1.04) mg/dL Est GFR (CKD-EPI)AfAm (>60 ml/min/1.73 sqM) Est GFR (CKD-EPI)NonAf (>60 ml/min/1.73 sqM) Glucose (74-99) mg/dL Calcium (8.4-10.2) mg/dL Total Bilirubin (0.2-1.3) mg/dL AST (14-36) U/L ALT (4-34) U/L Alkaline Phosphatase (38-126) U/L Total Protein (6.3-8.2) g/dL Albumin (3.5-5.0) g/dL HCG, Quant mIU/mL Urine Color Urine Appearance (Clear) Urine pH (5.0-8.0) Ur Specific Duncan (1.001-1.035) Urine Protein (Negative) Urine Glucose (UA) (Negative) Urine Ketones (Negative) Urine Blood (Negative) Urine Nitrite (Negative) Urine Bilirubin (Negative) Urine Urobilinogen (<2.0) mg/dL Ur Leukocyte Esterase (Negative) Urine RBC (0-5) /hpf Urine WBC (0-5) /hpf Ur Squamous Epith Cells (0-4) /hpf Urine Mucus (None) /hpf Blood Type O Positive Blood Type Recheck O Pos Bld Type Recheck Status No Disposition Clinical Impression: demise Disposition: HOME SELF-CARE Condition: Stable Instructions (If sedation given, give patient instructions): Threatened Miscarriage (ED) Additional Instructions: Please return to the Emergency Department if symptoms worsen or any other concerns. Please follow-up with your [employer] CREWMEMBER. Is patient prescribed a controlled substance at d/c from ED?: No Referrals: Wei Rodrigez MD [Primary Care Provider] - 1-2 days Suzy Blair DO [Doctor of Osteopathic Medicine] - 1-2 days Time of Disposition: 23:45
[2021-05-28 00:01] LABS: Appearance,Urine Clear (Clear); Bilirubin,Urine Negative (Negative); Blood,Urine Large (Negative); Color,Urine Yellow; Glucose,Urine (UA) Negative (Negative); Ketones,Urine Negative (Negative); Leukocyte Esterase,Urine Moderate (Negative); Mucus,Urine Rare /hpf; Nitrite,Urine Negative (Negative); Protein,Urine Negative (Negative); RBC,Urine 1 /hpf (0-5); Squamous Epithelial Cell,Urine 5 /hpf (0-4); Urobilinogen,Urine <2.0 mg/dL (<2.0); WBC,Urine 4 /hpf (0-5)
[2021-05-28 00:03] VITALS: BP 113/71; PULSE 84; RESP 18
== END 2021-05-28 00:03 | disposition home or self-care (01) ==
LOC: EC 21:28
DX: O02.1 Missed abortion (principal); F41.9 Anxiety disorder, unspecified; F32.9 Major depressive disorder, single episode, unspecified; Z3A.10 10 weeks gestation of pregnancy
CPT/HCPCS: 36415; 76801; 80053; 81001; 84702; 85025; 86900; 86901; 99284

== ENCOUNTER 2021-06-01 21:56 | Emergency (ER) | payer OTHER ==
[2021-06-01 22:37] VITALS: RESP 18; TEMP 98.9
[2021-06-01] MEDS ORDERED: SODIUM CHLORIDE 0.9% 1,000 ML IV ONE (22:58)
--- NOTE | 2021-06-01 23:02 | ED ---
General Adult HPI - General Chief complaint: Vaginal Bleeding Stated complaint: Vaginal Bleeding Time Seen by Provider: 06/01/21 22:51 Source: patient, RN notes reviewed, old records reviewed Mode of arrival: ambulatory Limitations: no limitations - History of Present Illness Initial comments: This is a well-appearing 25-year-old female, alert and oriented 4, presents to the emergency room with complaints of vaginal bleeding since May 27. Marely andino was seen in the emergency room and had an ultrasound at that time and was told there was no heartbeat and she had suffered a demise. She was directed to follow up with orthopedics. She states that she could not get in because the power was out. She states that the bleeding has increased and she had been passing large clots one the size of a softball. She continues to have intermittent cramping. She was also told that they would not see her TALENT DEVELOPMENT COORDINATOR office initially related to her meth use. She states she has not used meth in the past 30 days. She does not drink alcohol daily. She does smoke a pack a day. She denies any fevers or nausea or vomiting. She has had some diarrhea. -: days(s) (7) Location: abdomen, pelvis Radiation: back Severity scale (1-10): 9 Quality: other Consistency: intermittent (Cramping) Improves with: none Worsens with: none Associated Symptoms: other (Vaginal bleeding) Treatments Prior to Arrival: none - Related Data Home Medications Medication Instructions Recorded Confirmed Pnv,Calcium 72/Iron/Folic Acid 1 each PO DAILY 03/13/20 03/11/21 [ Plus Tablet] Calcium Carbonate [Calcium] 25 mg PO DAILY 03/20/20 03/11/21 Previous Rx's Medication Instructions Recorded Ibuprofen [Motrin] 600 mg PO Q6HR PRN #30 tab 03/21/20 Allergies Allergy/AdvReac Type Severity Reaction Status Date / Time No Known Allergies Allergy Verified 06/01/21 22:37 Review of Systems ROS Statement: Those systems with pertinent positive or pertinent negative responses have been documented in the HPI. ROS Other: All systems not noted in ROS Statement are negative. Past Medical History Past Medical History: No Reported History Additional Past Medical History / Comment(s): Obstetric history: She's had one previous vaginal delivery. This is her second . She's had care with me since 15 weeks gestation at which time an ultrasound confirmed she is due 03/20/2020. Blood type is O+, amylase negative, rubella immune, RPR nonreactive, hepatitis B-, GBS positive. History of Any Multi-Drug Resistant Organisms: None Reported Additional Past Surgical History / Comment(s): left hip surgery as an Past Anesthesia/Blood Transfusion Reactions: No Reported Reaction Past Psychological History: Anxiety, Depression, PTSD Smoking Status: Current every day smoker Past Alcohol Use History: None Reported Past Drug Use History: Methamphetamine - Past Family History Mother Family Medical History: Cancer Additional Family Medical History / Comment(s): grandmother breast CA Father Family Medical History: Myocardial Infarction ([place]) Additional Family Medical History / Comment(s): grandfather had [place] General Exam Limitations: no limitations General appearance: alert, in no apparent distress Head exam: Present: atraumatic, normocephalic, normal inspection Eye exam: Present: normal appearance, PERRL, EOMI. Absent: scleral icterus, conjunctival injection, periorbital swelling ENT exam: Present: normal exam, normal oropharynx, mucous membranes moist Neck exam: Present: normal inspection, full ROM. Absent: tenderness, meningismus, lymphadenopathy Respiratory exam: Present: normal lung sounds bilaterally. Absent: respiratory distress, wheezes, rales, rhonchi, stridor Cardiovascular Exam: Present: regular rate, normal rhythm, normal heart sounds. Absent: systolic murmur, diastolic murmur, rubs, gallop, clicks GI/Abdominal exam: Present: soft, tenderness (low abdominal and pelvic) External exam: Present: normal external exam. Absent: lesions, lacerations Speculum exam: Present: vaginal bleeding, tissue Extremities exam: Present: normal inspection, full ROM, normal capillary refill. Absent: tenderness, pedal edema, joint swelling, calf tenderness Back exam: Present: tenderness (Lumbar). Absent: CVA tenderness (R), CVA tenderness (L) Neurological exam: Present: alert, oriented X3, CN II-XII intact Psychiatric exam: Present: normal affect, normal mood Skin exam: Present: warm, dry, intact, normal color. Absent: rash Course Vital Signs 06/01/21 22:32 Temperature 98.9 F Pulse Rate 97 Respiratory 18 Rate Blood Pressure 116/76 O2 Sat by Pulse 97 Oximetry Medical Decision Making - Medical Decision Making Patient's hemoglobin and hematocrit is 12.5 and 38.8. Her blood type at last visit is O+. Ultrasound shows demise of the crown to rump of 1.3 cm. Gestational sac and demise not significantly different than recent exam. Hemoglobin and hematocrit is stable. Upon pelvic exam patient expelled a large amount of tissue and clot. She states that the cramping is less than significantly. She'll be discharged home to follow up with TALENT DEVELOPMENT COORDINATOR next week. Directed to return to the emergency room with any new or worsening symptoms including fever, dizziness, increased vaginal bleeding or pain. - Lab Data Result diagrams: 06/01/21 22:59 06/01/21 22:59 Lab Results 06/01/21 06/01/21 Range/Units 22:59 22:59 WBC 13.3 H (3.8-10.6) k/uL RBC 4.12 (3.80-5.40) m/uL Hgb 12.5 (11.4-16.0) gm/dL Hct 38.8 (34.0-46.0) % MCV 94.0 (80.0-100.0) fL MCH 30.4 (25.0-35.0) pg MCHC 32.4 (31.0-37.0) g/dL RDW 13.2 (11.5-15.5) % Plt Count 273 (150-450) k/uL MPV 7.9 Neutrophils % 72 % Lymphocytes % 21 % Monocytes % 5 % Eosinophils % 2 % Basophils % 0 % Neutrophils # 9.5 H (1.3-7.7) k/uL Lymphocytes # 2.7 (1.0-4.8) k/uL Monocytes # 0.6 (0-1.0) k/uL Eosinophils # 0.2 (0-0.7) k/uL Basophils # 0.1 (0-0.2) k/uL Sodium 135 L (137-145) mmol/L Potassium 3.7 (3.5-5.1) mmol/L Chloride 102 (98-107) mmol/L Carbon Dioxide 26 (22-30) mmol/L Anion Gap 7 mmol/L BUN 14 (7-17) mg/dL Creatinine 0.57 (0.52-1.04) mg/dL Est GFR (CKD-EPI)AfAm >90 (>60 ml/min/1.73 sqM) Est GFR (CKD-EPI)NonAf >90 (>60 ml/min/1.73 sqM) Glucose 102 H (74-99) mg/dL Calcium 9.4 (8.4-10.2) mg/dL Magnesium 2.0 (1.6-2.3) mg/dL Disposition Clinical Impression: demise, Vaginal bleeding Disposition: HOME SELF-CARE Condition: Good Additional Instructions: Return to the emergency room with any new or worsening symptoms including fever, increased abdominal pain or increased vaginal bleeding. Follow-up with TALENT DEVELOPMENT COORDINATOR in one week. Is patient prescribed a controlled substance at d/c from ED?: No Referrals: Wei Rodrigez MD [Primary Care Provider] - 1-2 days Shayla Alvarado DO [Doctor of Osteopathic Medicine] - 1-2 days Time of Disposition: 01:38
[2021-06-01 23:13] LABS: Basophils # (A) 0.1 k/uL (0-0.2); Basophils % (A) 0 %; Eosinophils # (A) 0.2 k/uL (0-0.7); Eosinophils % (A) 2 %; HCT 38.8 % (34.0-46.0); HGB 12.5 gm/dL (11.4-16.0); Lymphocytes # (A) 2.7 k/uL (1.0-4.8); Lymphocytes % (A) 21 %; MCH 30.4 pg (25.0-35.0); MCHC 32.4 g/dL (31.0-37.0); Mean Platelet Volume 7.9; Monocytes # (A) 0.6 k/uL (0-1.0); Monocytes % (A) 5 %; Neutrophils # (A) 9.5 k/uL (1.3-7.7); Neutrophils % (A) 72 %; Platelet Count 273 k/uL (150-450); RBC 4.12 m/uL (3.80-5.40); RDW 13.2 % (11.5-15.5); WBC 13.3 k/uL (3.8-10.6)
[2021-06-01 23:26] LABS: African American GFR (CKD) >90 (>60 ml/min/1.73 sqM); Anion Gap 7 mmol/L; Blood Urea Nitrogen 14 mg/dL (7-17); Calcium 9.4 mg/dL (8.4-10.2); Carbon Dioxide 26 mmol/L (22-30); Chloride 102 mmol/L (98-107); Glucose 102 mg/dL (74-99); Non-African American GFR(CKD) >90 (>60 ml/min/1.73 sqM); Potassium 3.7 mmol/L (3.5-5.1); Sodium 135 mmol/L (137-145)
--- NOTE | 2021-06-02 00:28 | US ---
EXAMINATION TYPE: Transabdominal DATE OF EXAM: 06/01/2021 11:43 PM COMPARISON: US 2020 Comparison 05/27/2021 CLINICAL HISTORY: demise; retained products. Bleeding x 5 days, patient states she is passing l arge clots the size of softballs EXAM PERFORMED: Transabdominal (TA) EXAM MEASUREMENTS: GESTATIONAL AGE / DATING Physician Established: Not yet established Dates by LMP: LMP unknown Dates by First Scan: (7 weeks/2 days) EDC: 01/11/2022 Dates by Current Scan for: (7 weeks/3 days) EDC: 01/15/2022 MATERNAL ANATOMY Uterus: 10.2 x 4.9 x 6.6cm Right Ovary: 2.5 x 1.2 x 2.0cm Left Ovary: 2.7 x 1.5 x 1.3cm Post CDS / Adnexa: wnl Presence of free fluid: no Presence of corpus luteal cyst: not seen Presence of subchorionic bleed: 4.8 x 1.3 x 2.1cm Large clot noted within upper portion of vagina GESTATION / SURVEY CRL: 1.3cm (7 weeks/3 days) Yolk Sac (normal less than 6mm): not seen IUP: Demise Date of LMP: Unknown Beta HcG (if available): Not available at time of exam IMPRESSION: There is demise with crown rump length 1.3 cm. Gestational sac and demise not significant ly different than recent exam. There is blood clot in the vagina.
[2021-06-02 02:08] VITALS: PULSE 78
[2021-06-02 02:10] VITALS: BP 98/65
== END 2021-06-02 02:14 | disposition home or self-care (01) ==
LOC: EC 21:56
DX: O02.1 Missed abortion (principal); F41.9 Anxiety disorder, unspecified; F32.9 Major depressive disorder, single episode, unspecified; F43.12 Post-traumatic stress disorder, chronic; F17.200 Nicotine dependence, unspecified, uncomplicated; Z3A.00 Weeks of gestation of pregnancy not specified
CPT/HCPCS: 36415; 76801; 80048; 83735; 85025; 96360; 99284

== ENCOUNTER 2023-10-10 16:40 | Inpatient (IN) | payer OTHER ==
[2023-10-10] MEDS ORDERED: ONDANSETRON 4 MG/2 ML VIAL IVP PRN (17:57)
[2023-10-10] MEDS ORDERED: METHYLERGONOVINE 0.2 MG/ML 1 ML AMP IM PRN (18:00)
[2023-10-10] MEDS ORDERED: OXYTOCIN 30 UNITS/500 ML NS 30 UNIT in SALINE 1 500ML.BAG IV SCH (18:00)
[2023-10-10] MEDS ORDERED: miSOPROStoL 200 MCG TAB PO PRN (18:00)
[2023-10-10] MEDS ORDERED: OXYTOCIN 10 UNIT/ML 1 ML VIAL IM PRN (18:00)
[2023-10-10] MEDS ORDERED: CARBOPROST TROMETHAMINE 250 MCG/ML 1 ML AMP IM PRN (18:00)
[2023-10-10] MEDS ORDERED: TERBUTALINE 1 MG/ML VIAL SQ PRN (18:00)
[2023-10-10] MEDS ORDERED: TRANEXAMIC 1,000 MG/100ML-NACL 1,000 MG in EMPTY BAG 1 BAG IV PRN (18:00)
--- NOTE | 2023-10-10 18:02 | US ---
EXAMINATION TYPE: US OB limited DATE OF EXAM: 10/10/2023 COMPARISON: NONE CLINICAL INDICATION: Female, 27 years old with history of unable to detect heart tones; no feta l heart tones EXAM PERFORMED: Transabdominal (TA) GESTATIONAL AGE / DATING No growth performed on today?s study per ordering physician SURVEY PATRICK: 7.1 cm Ultrasound evidence of premature rupture of membranes? no PRESENTATION: Breech LIE: Longitudinal HEART RATE: unable to detect heart tones IMPRESSION: Findings compatible with demise. Correlate with serial beta hCG and/or follow-up u ltrasound.
--- NOTE | 2023-10-10 18:12 | P.HPOB ---
History of Present Illness H&P Date: 10/10/23 Chief Complaint: contractions. absent heart tones 27-year-old presents at 30 weeks gestation complaining of contractions and brown vaginal discharge. She was thee every 2-3 minutes some of them are hurting and some of them were not. We were unable to get heart tones so ultrasound was called to bedside. Ultrasound showed absent heart tones and baby to be in breech presentation. It was discussed with the patient that she had a demise and there was no heartbeat. The patient expressed complete understanding. She is in the middle of being treated for syphilis and got her first injection of penicillin yesterday. She said that she barely felt the baby move yesterday and was concerned so she ate some ice cream and thought she felt the baby move but wasn't sure if it was maybe a contraction and not movement. Patient has had 2 previous normal vaginal deliveries and 1 miscarriage at 7 weeks. She'll be admitted for induction of labor and delivery of the stillborn fetus. Her cervix is dilated 4 cm, 90% effaced, -3. Review of Systems All systems: negative Constitutional: Denies chills, Denies fever Eyes: denies blurred vision, denies pain Ears, nose, mouth and throat: Denies headache, Denies sore throat Cardiovascular: Denies chest pain, Denies shortness of breath Respiratory: Denies cough Gastrointestinal: Denies abdominal pain, Denies diarrhea, Denies nausea, Denies vomiting Genitourinary: Denies dysuria, Denies hematuria Musculoskeletal: Denies myalgias Integumentary: Denies pruritus, Denies rash Neurological: Denies numbness, Denies weakness Psychiatric: Denies anxiety, Denies depression Endocrine: Denies fatigue, Denies weight change Past Medical History Past Medical History: No Reported History Additional Past Medical History / Comment(s): Obstetric history: 2 previous normal vaginal deliveries and 1 miscarriage at 7 weeks gestation. This is her fourth . She had care with me she waited to get her blood work done until a few weeks ago. Blood type is O+, antibodies negative, rubella immune, RPR and treponemal ab positive, hepatitis B-. Due to the positive syphilis status she was started on IM penicillin and a consult with [facility] was scheduled. History of Any Multi-Drug Resistant Organisms: None Reported Additional Past Surgical History / Comment(s): left hip surgery as an infant Past Anesthesia/Blood Transfusion Reactions: No Reported Reaction Smoking Status: Current every day smoker, Vaper - Past Family History Mother Family Medical History: Cancer Additional Family Medical History / Comment(s): grandmother breast CA Father Family Medical History: Myocardial Infarction ([place]) Additional Family Medical History / Comment(s): grandfather had [place] Medications and Allergies Home Medications Medication Instructions Recorded Confirmed Type DULoxetine HCL [Cymbalta] 30 mg PO HS #30 01/25/22 Rx Nicotine 14Mg/24Hr Patch [Habitrol] 1 patch TRANSDERM DAILY #14 patch 01/25/22 Rx QUEtiapine [SEROquel] 50 mg PO HS #30 tab 01/25/22 Rx Allergies Allergy/AdvReac Type Severity Reaction Status Date / Time No Known Allergies Allergy Verified 10/10/23 16:58 Exam Osteopathic Statement: *. No significant issues noted on an osteopathic structural exam other than those noted in the History and Physical/Consult. Vital Signs Temp Pulse Resp BP Pulse Ox 10/10/23 16:57 97.8 F 105 H 16 126/73 99 Intake and Output 10/10/23 10/10/23 10/10/23 06:59 14:59 22:59 Other: Weight 79.832 kg Heart: Regular rate and rhythm Lungs: Clear to auscultation bilaterally Abdomen: Soft, nontender Extremities: Negative Homans sign Assessment and Plan (1) 30 weeks gestation of Current Visit: Yes Status: Acute Code(s): Z3A.30 - 30 WEEKS GESTATION OF SNOMED Code(s): 03053573 (2) demise, greater than 22 weeks, antepartum Current Visit: Yes Status: Acute Code(s): O36.4XX0 - MATERNAL CARE FOR INTRAUTERINE , NOT APPLICABLE OR UNSP SNOMED Code(s): 120708038 Plan: 1. admit to [facility] 2. TORCH labs 3. PT, PTT, fibrinogen 4. augment labor if necessary 5. anticipate breech vaginal delivery. discussed possible complications with patient
[2023-10-10] MEDS ORDERED: NALBUPHINE 10 MG/ML (10 ML MDV) IV PRN (18:55)
[2023-10-10] MEDS: LACTATED RINGERS 1,000 ML IV SCH ×2 (18:56→19:37)
[2023-10-10 19:23] LABS: Basophils % (A) 0 %; Eosinophils # (A) 0.1 k/uL (0-0.7); Eosinophils % (A) 1 %; HCT 34.1 % (34.0-46.0); HGB 11.1 gm/dL (11.4-16.0); Lymphocytes # (A) 1.5 k/uL (1.0-4.8); Lymphocytes % (A) 12 %; MCH 27.3 pg (25.0-35.0); MCHC 32.5 g/dL (31.0-37.0); MCV 83.8 fL (80.0-100.0); Mean Platelet Volume 10.7; Monocytes # (A) 0.5 k/uL (0-1.0); Monocytes % (A) 4 %; Neutrophils # (A) 10.6 k/uL (1.3-7.7); Neutrophils % (A) 82 %; Platelet Count 273 k/uL (150-450); RBC 4.06 m/uL (3.80-5.40); RDW 13.9 % (11.5-15.5); WBC 12.9 k/uL (3.8-10.6)
[2023-10-10] MEDS ORDERED: ROPIVACAINE 5 MG/ML 30 ML VIAL ONE (19:38)
[2023-10-10] MEDS ORDERED: SODIUM CHLORIDE 0.9% 250 ML BAG ONE (19:38)
[2023-10-10] MEDS ORDERED: fentaNYL (PF) 50 MCG/ML 5 ML AMP ONE (19:38)
[2023-10-10 19:40] LABS: Partial Thromboplastin Time 23.6 sec (22.0-30.0); Prothrombin Time 10.6 sec (10.0-12.5)
[2023-10-10 21:06] LABS: Amphetamine Screen,Urine Detected (NotDetected); Barbiturate Screen,Urine Not Detected (NotDetected); Benzodiazepines Screen,Urine Not Detected (NotDetected); Cocaine Screen,Urine Not Detected (NotDetected); Methadone Screen, Urine Not Detected (NotDetected); Opiate Screen,Urine Not Detected (NotDetected); Oxycodone Screen, Urine Not Detected (NotDetected); Phencyclidine Screen,Urine Not Detected (NotDetected); Tricyclic Antidepressant,Urine Not Detected (NotDetected); Urn Cannabinoid Scrn Not Detected (NotDetected)
[2023-10-10] MEDS ORDERED: BENZOCAINE/MENTHOL SPRAY 1 GM/SPRAY AEROSOL TOPICAL PRN (22:19)
[2023-10-10] MEDS ORDERED: HYDROCORTISONE 2.5% RECTAL CREAM 30 GM TUBE RECTAL PRN (22:19)
[2023-10-10] MEDS ORDERED: diphenhydrAMINE 25 MG CAP PO PRN (22:19)
[2023-10-10] MEDS ORDERED: diphenhydrAMINE 50 MG CAP PO PRN (22:19)
[2023-10-10] MEDS ORDERED: ZOLPIDEM 5 MG TAB PO PRN (22:19)
[2023-10-10] MEDS ORDERED: diphenhydrAMINE 50 MG/ML 1 ML VIAL IVP PRN ×2 (22:19)
[2023-10-10] MEDS ORDERED: SIMETHICONE 80 MG CHEWABLE PO PRN (22:19)
[2023-10-10] MEDS: ACETAMINOPHEN TAB 325 MG TAB PO PRN (23:01)
[2023-10-11] MEDS: IBUPROFEN 600 MG TAB PO PRN ×3 (04:30→17:58)
[2023-10-11 05:21] VITALS: TEMP 98.2
[2023-10-11] MEDS: ACETAMINOPHEN TAB 325 MG TAB PO PRN (07:49)
[2023-10-11] MEDS ORDERED: SENNOSIDES-DOCUSATE SODIUM 1 EACH TAB PO SCH (08:00)
[2023-10-11 10:23] LABS: Basophils % (A) 0 %; Eosinophils # (A) 0.1 k/uL (0-0.7); Eosinophils % (A) 1 %; HGB 10.5 gm/dL (11.4-16.0); Hypochromasia Slight; Lymphocytes # (A) 1.5 k/uL (1.0-4.8); Lymphocytes % (A) 9 %; MCHC 32.7 g/dL (31.0-37.0); MCV 85.6 fL (80.0-100.0); Mean Platelet Volume 10.4; Monocytes # (A) 0.6 k/uL (0-1.0); Monocytes % (A) 4 %; Neutrophils # (A) 13.3 k/uL (1.3-7.7); Neutrophils % (A) 85 %; Platelet Count 236 k/uL (150-450); RBC 3.74 m/uL (3.80-5.40); RDW 13.9 % (11.5-15.5); WBC 15.6 k/uL (3.8-10.6)
--- NOTE | 2023-10-11 13:14 | P.PROBDLV ---
Vaginal Delivery Note - . Vaginal Delivery Note: 27-year-old presents at 30 weeks gestation complaining of contractions and brown vaginal discharge. She was thee every 2-3 minutes some of them are hurting and some of them were not. We were unable to get heart tones so ultrasound was called to bedside. Ultrasound showed absent heart tones and baby to be in breech presentation. It was discussed with the patient that she had a demise and there was no heartbeat. The patient expressed complete understanding. She is in the middle of being treated for syphilis and got her first injection of penicillin yesterday. She said that she barely felt the baby move yesterday and was concerned so she ate some ice cream and thought she felt the baby move but wasn't sure if it was maybe a contraction and not movement. Patient has had 2 previous normal vaginal deliveries and 1 miscarriage at 7 weeks. She'll be admitted for induction of labor and delivery of the stillborn fetus. Her cervix is dilated 4 cm, 90% effaced, -3. Patient was admitted and was thee every 1-2 minutes, Getting more uncomfortable. She did request an epidural when she is about 5-1/2 cm dilated. She is comfortable with epidural until she started to feel a lot of pressure. She was 7 cm dilated and the fetus was coming down into the vagina. Amniotomy performed and meconium bloody fluid noted. This was at 2135. She went through femur contractions at 2137 the feet started to protrude from the vagina. I had the patient push and delivered the baby in normal breech fashion. First both feet and legs up to the scapula I swept the left arm and then the right arm through and the head delivered atraumatically. Cord was clamped and cut placed in a blanket and on mother's abdomen. Attempted to deliver the placenta but the cord evulsed. Had to do a manual removal of the placenta which patient did tolerate okay. Infant's delivery time was 2200 and placenta time was 2208. Apgars 0 and 0, weight 4 pounds 6.9 ounces, 2010 g. Vagina, cervix, perineum inspected. No lacerations noted. Estimated blood loss 245 mL.
--- NOTE | 2023-10-11 13:18 | P.DS ---
Providers Date of admission: 10/10/23 18:06 Expected date of discharge: 10/11/23 Attending physician: Suzy Blair Primary care physician: Stated None - Discharge Diagnosis(es) (1) 30 weeks gestation of Current Visit: Yes Status: Resolved (2) demise, greater than 22 weeks, antepartum Current Visit: Yes Status: Resolved (3) demise > 22 weeks, delivered, current hospitalization Current Visit: Yes Status: Acute (4) Methamphetamine abuse Current Visit: No Status: Acute (5) Syphilis Current Visit: Yes Status: Acute Hospital Course: Patient presented at 30 weeks with a demise in breech position, in active labor. Patient underwent a breech vaginal delivery. She has a known diagnosis of syphilis and is currently being treated. Patient was positive for amphetamines and methamphetamines. She underwent this delivery and course was uneventful. She denies nausea, vomiting, chest pain, shortness of breath or calf pain. Her bleeding is light. Patient will be discharged home day #1 in stable condition to follow-up with me in 2 weeks. Plan - Discharge Summary New Discharge Prescriptions: New Ibuprofen [Motrin] 600 mg PO Q6HR PRN #30 tab PRN Reason: Mild Pain (Scale 1 To 3) No Action DULoxetine HCL [Cymbalta] 30 mg PO HS #30 Nicotine 14Mg/24Hr Patch [Habitrol] 1 patch TRANSDERM DAILY #14 patch QUEtiapine [SEROquel] 50 mg PO HS #30 tab Discharge Medication List DULoxetine HCL [Cymbalta] 30 mg PO HS #30 01/25/22 [Rx] Nicotine 14Mg/24Hr Patch [Habitrol] 1 patch TRANSDERM DAILY #14 patch 01/25/22 [Rx] QUEtiapine [SEROquel] 50 mg PO HS #30 tab 01/25/22 [Rx] Ibuprofen [Motrin] 600 mg PO Q6HR PRN #30 tab 10/11/23 [Rx] Follow up Appointment(s)/Referral(s): Suzy Blair DO [Doctor of Osteopathic Medicine] - 2 Weeks Discharge Disposition: HOME SELF-CARE
[2023-10-11 15:04] VITALS: RESP 18
[2023-10-11 19:29] VITALS: BP 140/88; PULSE 84
[2023-10-13 04:33] LABS: Herpes simplex IgG I Ab 0.04 (< or = 0.90); Herpes simplex IgG II Ab 0.04 (< or = 0.90); Toxoplasma Antibody (IgG) <3.0 IU/mL (<7.2)
[2023-10-13 14:17] LABS: APTT 51 Sec(s) (<43); APTT 1:1 Mix 41 Sec(s) (<43); Dilute Russell Viper Venom 34 Sec(s) (<44)
== END 2023-10-11 18:40 | disposition home or self-care (01) | DRG 560 ==
LOC: FBPOP 16:40 → 4FBP 18:06
PROVIDERS: ADMIT Obstetrics & Gynecology; ATTEND Obstetrics & Gynecology
PROC: 10907ZC Drainage of Amniotic Fluid, Therapeutic from Products of Conception, Via Natural or Artificial Opening (ICD-10-PCS; principal; 2023-10-10)
PROC: 10E0XZZ Delivery of Products of Conception, External Approach (ICD-10-PCS; principal; 2023-10-10)
DX: O36.4XX0 Maternal care for intrauterine death, not applicable or unspecified (principal); O32.1XX0 Maternal care for breech presentation, not applicable or unspecified; O77.0 Labor and delivery complicated by meconium in amniotic fluid; O98.12 Syphilis complicating childbirth; O99.324 Drug use complicating childbirth; O99.334 Smoking (tobacco) complicating childbirth; Z37.1 Single stillbirth; Z3A.30 30 weeks gestation of pregnancy; F15.10 Other stimulant abuse, uncomplicated; F17.290 Nicotine dependence, other tobacco product, uncomplicated
CPT/HCPCS: 76815; 80306; 85025; 85384; 85610; 85613; 85730; 86644; 86645; 86694; 86695; 86696; 86762; 86777; 86778; 86850; 86900; 86901; 99213

== ENCOUNTER 2023-12-20 17:50 | Inpatient (IN) | payer OTHER ==
[2023-12-20] MEDS: SODIUM CHLORIDE 0.9% 1,000 ML IV ONE (18:14)
--- NOTE | 2023-12-20 18:21 | ED ---
General Adult HPI - General Chief complaint: Overdose Stated complaint: Overdose Time Seen by Provider: 12/20/23 17:53 Source: patient, EMS, RN notes reviewed Mode of arrival: EMS Limitations: no limitations - History of Present Illness Initial comments: Patient is a pleasant 28-year-old female present to the emergency department for overdose. Patient admits to this being intentional with thoughts of self-harm. Patient states she took may be 20 or 30. Patient states was a handful. Patient admits to using cocaine at time. No alcohol use. Patient states she has not been eating or drinking well recently. - Related Data Previous Rx's Medication Instructions Recorded DULoxetine HCL [Cymbalta] 30 mg PO HS #30 01/25/22 Nicotine 14Mg/24Hr Patch [Habitrol] 1 patch TRANSDERM DAILY #14 patch 01/25/22 QUEtiapine [SEROquel] 50 mg PO HS #30 tab 01/25/22 Ibuprofen [Motrin] 600 mg PO Q6HR PRN #30 tab 10/11/23 Allergies Allergy/AdvReac Type Severity Reaction Status Date / Time No Known Allergies Allergy Verified 10/10/23 16:58 Review of Systems ROS Statement: Those systems with pertinent positive or pertinent negative responses have been documented in the HPI. ROS Other: All systems not noted in ROS Statement are negative. Constitutional: Denies: fever Eyes: Denies: eye pain ENT: Denies: ear pain Respiratory: Denies: cough, dyspnea Psychiatric: Reports: depression, suicidal thoughts Past Medical History Past Medical History: No Reported History Additional Past Medical History / Comment(s): Obstetric history: 2 previous normal vaginal deliveries and 1 miscarriage at 7 weeks gestation. This is her fourth . She had care with [facility] she waited to get her blood work done until a few weeks ago. Blood type is O+, antibodies negative, rubella immune, RPR and treponemal ab positive, hepatitis B-. Due to the positive syphilis status she was started on IM penicillin and a consult with [facility] was scheduled. History of Any Multi-Drug Resistant Organisms: None Reported Additional Past Surgical History / Comment(s): left hip surgery as an infant Past Anesthesia/Blood Transfusion Reactions: No Reported Reaction Past Psychological History: Anxiety, Depression, PTSD Smoking Status: Current every day smoker, Vaper Past Alcohol Use History: None Reported Past Drug Use History: Methamphetamine - Past Family History Mother Family Medical History: Cancer Additional Family Medical History / Comment(s): grandmother breast CA Father Family Medical History: Myocardial Infarction ([place]) Additional Family Medical History / Comment(s): grandfather had [place] General Exam General appearance: other (Drowsy but arousable to voice) Head exam: Present: atraumatic Eye exam: Present: normal appearance, PERRL, EOMI. Absent: nystagmus ENT exam: Present: mucous membranes dry Neck exam: Present: normal inspection Respiratory exam: Present: normal lung sounds bilaterally Cardiovascular Exam: Present: tachycardia GI/Abdominal exam: Present: soft. Absent: tenderness Extremities exam: Present: normal inspection Neurological exam: Present: CN II-XII intact, other ([place] but arousable to voice). Absent: motor sensory deficit Expanded Motor strength exam: RUE: 5, LUE: 5, RLE: 5, LLE: 5 Eye Response: (3) open to voice Motor Response: (6) obeys commands Verbal Response: (5) oriented Psychiatric exam: Present: flat affect Skin exam: Present: normal color Course Vital Signs 12/20/23 12/20/23 17:57 18:39 Temperature 98.9 F Pulse Rate 128 H 109 H Respiratory 14 12 Rate Blood Pressure 87/46 90/49 O2 Sat by Pulse 99 100 Oximetry EKG Findings - EKG Results: EKG: interpreted by ERMD (Right axis.), sinus rhythm, normal axis, normal QRS EKG shows: tachycardia Medical Decision Making - Medical Decision Making Please control recommends keeping potassium greater than 4, magnesium greater than 2, and calcium greater than 9.5. Potassium and calcium replacements have been ordered. Magnesium has also been ordered Was pt. sent in by a medical professional or institution (, PA, DIRECTOR VISUAL, urgent care, hospital, or skilled nursing...) When possible be specific @ -No Did you speak to anyone other than the patient for history (EMS, parent, family, police, friend...)? What history was obtained from this source @ -EMS helps provide history including amount of pills Did you review nursing and triage notes (agree or disagree)? Why? @ -I reviewed and agree with nursing and triage notes Were old charts reviewed (outside hosp., previous admission, EMS record, old EKG, old radiological studies, urgent care reports/EKG's, skilled nursing records)? Report findings @ -No old charts were reviewed Differential Diagnosis (chest pain, altered mental status, abdominal pain women, abdominal pain men, vaginal bleeding, weakness, fever, dyspnea, syncope, headache, dizziness, GI bleed, back pain, seizure, CVA, palpatations, mental health, musculoskeletal)? @ -Differential Mental Health Depression, anxiety, bipolar, psychosis, schizophrenia, borderline personality, situational depression, adjustment disorder, behavioral disorder, brain tumor, m alingering, substance abuse, encephalopathy, medication reaction, dementia, hypothyroidism, degenerative neurologic disorder, lupus.... This is not meant to be all-inclusive list EKG interpreted by me (3pts min.). @ -As above X-rays interpreted by me (1pt min.). @ -None done CT interpreted by me (1pt min.). @ -None done U/S interpreted by me (1pt. min.). @ -None done What testing was considered but not performed or refused? (CT, X-rays, U/S, labs)? Why? @ -None What meds were considered but not given or refused? Why? @ -None Did you discuss the management of the patient with other professionals (professionals i.e. , PA, DIRECTOR VISUAL, lab, RT, psych nurse, medical social consultant, mentally impaired teacher, teacher, operations officer afloat, lead case manager)? Give summary @ -Nursing staff and poison control with electrolyte recommendation. Case also discussed with practitioner Tessy Adams who will admit covering hospital call. Was smoking cessation discussed for >3mins.? @ -No Was critical care preformed (if so, how long)? @ -No Were there social determinants of health that impacted care today? How? (Homelessness, low income, unemployed, alcoholism, drug addiction, transportation, low edu. Level, literacy, decrease access to med. care, fpc, rehab)? @ -No Was there de-escalation of care discussed even if they declined (Discuss DNR or withdrawal of care, Hospice)? DNR status @ -No What co-morbidities impacted this encounter? (DM, HTN, Smoking, COPD, CAD, Cancer, CVA, ARF, Chemo, Hep., AIDS, mental health diagnosis, sleep apnea, morbid obesity)? @ -None Was patient admitted / discharged? Hospital course, mention meds given and route, prescriptions, significant lab abnormalities, going to OR and other pertinent info. @ -Patient reevaluated and significantly improved. Heart rate improved. Blood pressure improved. Patient is arousable to voice. Patient will be admitted with mental health consult. Undiagnosed new problem with uncertain prognosis? @ -No Drug Therapy requiring intensive monitoring for toxicity (Heparin, Nitro, Insulin, Cardizem)? @ -No Were any procedures done? @ -No Diagnosis/symptom? @ -Seroquel overdose Acute, or Chronic, or Acute on Chronic? @ -Acute Uncomplicated (without systemic symptoms) or Complicated (systemic symptoms)? @ -Complicated with abnormal vital signs and drowsiness Side effects of treatment? @ -No Exacerbation, Progression, or Severe Exacerbation? @ -No Poses a threat to life or bodily function? How? (Chest pain, [place], [place], pneumonia, PE, COPD, DKA, ARF, appy, cholecystitis, CVA, Diverticulitis, Homicidal, Suicidal, threat to staff... and all critical care pts) @ -Potential for endorgan damage - Lab Data Result diagrams: 12/20/23 18:15 12/20/23 18:15 Lab Results 12/20/23 12/20/23 12/20/23 Range/Units 18:15 18:15 18:15 WBC 5.7 (3.8-10.6) k/uL RBC 4.64 (3.80-5.40) m/uL Hgb 12.7 (11.4-16.0) gm/dL Hct 39.8 (34.0-46.0) % MCV 85.9 (80.0-100.0) fL MCH 27.3 (25.0-35.0) pg MCHC 31.8 (31.0-37.0) g/dL RDW 16.0 H (11.5-15.5) % Plt Count 282 (150-450) k/uL MPV 7.9 Neutrophils % 58 % Lymphocytes % 31 % Monocytes % 6 % Eosinophils % 3 % Basophils % 1 % Neutrophils # 3.3 (1.3-7.7) k/uL Lymphocytes # 1.7 (1.0-4.8) k/uL Monocytes # 0.4 (0-1.0) k/uL Eosinophils # 0.2 (0-0.7) k/uL Basophils # 0.0 (0-0.2) k/uL Anisocytosis Slight Sodium 136 L (137-145) mmol/L Potassium 3.1 L (3.5-5.1) mmol/L Chloride 103 (98-107) mmol/L Carbon Dioxide 24 (22-30) mmol/L Anion Gap 9 mmol/L BUN 11 (7-17) mg/dL Creatinine 0.60 (0.52-1.04) mg/dL Est GFR (CKD-EPI)AfAm >90 (>60 ml/min/1.73 sqM) Est GFR (CKD-EPI)NonAf >90 (>60 ml/min/1.73 sqM) Glucose 140 H (74-99) mg/dL Calcium 9.0 (8.4-10.2) mg/dL Magnesium 1.7 (1.6-2.3) mg/dL Total Bilirubin 0.8 (0.2-1.3) mg/dL AST 21 (14-36) U/L ALT 20 (4-34) U/L Alkaline Phosphatase 65 (38-126) U/L Total Protein 6.3 (6.3-8.2) g/dL Albumin 4.0 (3.5-5.0) g/dL Amylase 56 (30-110) U/L Lipase 74 (23-300) U/L Salicylates <1.0 mg/dL Acetaminophen <10.0 ug/mL Serum Alcohol <10 mg/dL Critical Care Time Critical Care Time: Yes Total Critical Care Time: 33 Disposition Clinical Impression: Overdose Disposition: ADMITTED IP TO THIS [facility] Condition: Serious Is patient prescribed a controlled substance at d/c from ED?: No Referrals: None,Stated [Primary Care Provider] - 1-2 days Time of Disposition: 19:32
[2023-12-20 18:39] LABS: Anisocytosis Slight; Basophils % (A) 1 %; Eosinophils # (A) 0.2 k/uL (0-0.7); Eosinophils % (A) 3 %; HCT 39.8 % (34.0-46.0); HGB 12.7 gm/dL (11.4-16.0); Lymphocytes # (A) 1.7 k/uL (1.0-4.8); Lymphocytes % (A) 31 %; MCH 27.3 pg (25.0-35.0); MCHC 31.8 g/dL (31.0-37.0); MCV 85.9 fL (80.0-100.0); Mean Platelet Volume 7.9; Monocytes # (A) 0.4 k/uL (0-1.0); Monocytes % (A) 6 %; Neutrophils # (A) 3.3 k/uL (1.3-7.7); Neutrophils % (A) 58 %; Platelet Count 282 k/uL (150-450); RBC 4.64 m/uL (3.80-5.40); WBC 5.7 k/uL (3.8-10.6)
[2023-12-20 18:55] LABS: ALT 20 U/L (4-34); AST 21 U/L (14-36); Acetaminophen <10.0 ug/mL; African American GFR (CKD) >90 (>60 ml/min/1.73 sqM); Alcohol <10 mg/dL; Alkaline Phosphatase 65 U/L (38-126); Amylase 56 U/L (30-110); Anion Gap 9 mmol/L; Blood Urea Nitrogen 11 mg/dL (7-17); Carbon Dioxide 24 mmol/L (22-30); Chloride 103 mmol/L (98-107); Glucose 140 mg/dL (74-99); Lipase 74 U/L (23-300); Non-African American GFR(CKD) >90 (>60 ml/min/1.73 sqM); Potassium 3.1 mmol/L (3.5-5.1); Salicylate <1.0 mg/dL; Sodium 136 mmol/L (137-145); Total Bilirubin 0.8 mg/dL (0.2-1.3); Total Protein 6.3 g/dL (6.3-8.2)
[2023-12-20] MEDS ORDERED: Potassium Replacement Protocol 1 EACH MISC MISCELLANE PRN (18:58)
[2023-12-20] MEDS ORDERED: NALOXONE 0.4 MG/ML 1 ML VIAL IV PRN (19:33)
[2023-12-20 20:04] LABS: Amphetamine Screen,Urine Detected (NotDetected); Benzodiazepines Screen,Urine Not Detected (NotDetected); Cocaine Screen,Urine Not Detected (NotDetected); Methadone Screen, Urine Not Detected (NotDetected); Opiate Screen,Urine Not Detected (NotDetected); Phencyclidine Screen,Urine Not Detected (NotDetected); Tricyclic Antidepressant,Urine Detected (NotDetected); Urn Cannabinoid Scrn Not Detected (NotDetected)
[2023-12-20 20:05] LABS: Barbiturate Screen,Urine Not Detected (NotDetected); Oxycodone Screen, Urine Not Detected (NotDetected)
[2023-12-20] MEDS: CALCIUM CHLORIDE 0.5 GM in SODIUM CHLORIDE 0.9% 50 ML IVPB ONE (20:36)
[2023-12-20] MEDS: SODIUM CHLORIDE 0.9% 1,000 ML IV SCH (20:48)
[2023-12-20] MEDS: MAGNESIUM SULFATE-D5W PMX 1 GM in DEXTROSE/WATER 1 100ML.BAG IVPB ONE (21:35)
[2023-12-20] MEDS: POTASSIUM CHLORIDE 20 MEQ in WATER FOR INJECTION 1 100ML.BAG IVPB STA (21:36)
[2023-12-21] MEDS: LORazepam 2 MG/ML INJ IV PRN ×2 (02:40→23:03)
[2023-12-21] MEDS ORDERED: HALOPERIDOL LACTATE 5 MG/ML 1 ML VIAL IVP PRN (04:00)
[2023-12-21] MEDS: HALOPERIDOL LACTATE 5 MG/ML 1 ML VIAL IVP PRN (04:10)
[2023-12-21 08:45] LABS: Basophils % (A) 1 %; Eosinophils # (A) 0.2 k/uL (0-0.7); Eosinophils % (A) 2 %; HCT 38.1 % (34.0-46.0); HGB 11.9 gm/dL (11.4-16.0); Hypochromasia Slight; Lymphocytes # (A) 1.6 k/uL (1.0-4.8); Lymphocytes % (A) 18 %; MCH 27.4 pg (25.0-35.0); MCHC 31.3 g/dL (31.0-37.0); MCV 87.5 fL (80.0-100.0); Mean Platelet Volume 8.6; Monocytes # (A) 0.5 k/uL (0-1.0); Monocytes % (A) 6 %; Neutrophils # (A) 6.6 k/uL (1.3-7.7); Neutrophils % (A) 73 %; Platelet Count 294 k/uL (150-450); RBC 4.36 m/uL (3.80-5.40); RDW 15.8 % (11.5-15.5)
[2023-12-21 09:40] LABS: ALT 18 U/L (4-34); AST 21 U/L (14-36); African American GFR (CKD) >90 (>60 ml/min/1.73 sqM); Albumin 3.7 g/dL (3.5-5.0); Alkaline Phosphatase 55 U/L (38-126); Anion Gap 8 mmol/L; Blood Urea Nitrogen 4 mg/dL (7-17); Carbon Dioxide 23 mmol/L (22-30); Chloride 112 mmol/L (98-107); Glucose 94 mg/dL (74-99); Non-African American GFR(CKD) >90 (>60 ml/min/1.73 sqM); Potassium 3.7 mmol/L (3.5-5.1); Sodium 143 mmol/L (137-145); Total Bilirubin 0.9 mg/dL (0.2-1.3); Total Protein 6.1 g/dL (6.3-8.2)
--- NOTE | 2023-12-21 09:50 | P.HPIM ---
History of Present Illness this is a pleasant 28 years old female with past medical history of recurrent major depression, nicotine dependence, PTSD and anxiety She presents because of altered mental status, as per report patient took unknown amount of Seroquel Currently patient is asleep andcannot provide information after she received Haldol2 mgIV To that patient was easily agitated and they have to put her on restraints. Since currently she is calm I discussed with bed side nurse to take restraints off No family member at bedside on admission patient was afebrile She is tachycardic, mildly hypotensive 87/46, she received 1 L and emergency room and currently 1765. She has unremarkable CBC, BMP, liver enzymes and lipase Potassium was lysed and replaced Urine hCG is negative Serum alcohol, salicylate and acetaminophen [place] negative Urine drug screen is positive for LICENSED OPTICAL DISPENSER, amphetamine and methamphetamine EKG shows sinus tachycardia at 116 with QTC 505 No imaging done in the emergency room Review of Systems ROS unobtainable: due to mental status Past Medical History Past Medical History: No Reported History Additional Past Medical History / Comment(s): Obstetric history: 2 previous normal vaginal deliveries and 1 miscarriage at 7 weeks gestation. This is her fourth . She had care with me she waited to get her blood work done until a few weeks ago. Blood type is O+, antibodies negative, rubella immune, RPR and treponemal ab positive, hepatitis B-. Due to the positive syphilis status she was started on IM penicillin and a consult with [facility] was scheduled. History of Any Multi-Drug Resistant Organisms: None Reported Additional Past Surgical History / Comment(s): left hip surgery as an infant Past Anesthesia/Blood Transfusion Reactions: No Reported Reaction Past Psychological History: Anxiety, Depression, PTSD Smoking Status: Current every day smoker, Vaper Past Alcohol Use History: None Reported Past Drug Use History: Methamphetamine - Past Family History Mother Family Medical History: Cancer Additional Family Medical History / Comment(s): grandmother breast CA Father Family Medical History: Myocardial Infarction ([place]) Additional Family Medical History / Comment(s): grandfather had [place] Medications and Allergies Home Medications Medication Instructions Recorded Confirmed Type No Known Home Medications 12/21/23 12/21/23 History Allergies Allergy/AdvReac Type Severity Reaction Status Date / Time No Known Allergies Allergy Verified 12/21/23 08:54 Physical Exam Vitals: Vital Signs Temp Pulse Resp BP Pulse Ox 12/21/23 09:00 89 16 107/65 100 12/21/23 08:02 116 H 19 114/63 100 12/21/23 06:30 97 15 103/71 100 12/21/23 06:00 97 16 110/68 100 12/21/23 05:30 110 H 17 111/80 100 12/21/23 05:00 101 H 17 113/74 100 12/21/23 04:39 98 16 113/74 100 12/21/23 04:00 30 H 110/80 100 12/21/23 03:00 101 H 22 92/62 100 12/21/23 02:00 105 H 22 103/71 91 L 12/21/23 01:59 101 H 16 92/62 100 12/21/23 01:00 103 H 19 103/66 100 12/21/23 00:27 91 12 103/66 99 12/21/23 00:00 98 22 100/58 99 12/20/23 23:06 93 12 100/58 100 12/20/23 23:00 96 15 103/61 99 12/20/23 22:23 102 H 14 103/61 100 12/20/23 22:00 112 H 18 95/64 100 12/20/23 21:44 101 H 14 95/64 100 12/20/23 21:00 101 H 16 105/55 12/20/23 20:33 103 H 12 105/55 100 12/20/23 19:44 105 H 16 101/53 100 12/20/23 18:39 109 H 12 90/49 100 12/20/23 17:57 98.9 F 128 H 14 87/46 99 Intake and Output 12/20/23 12/21/23 12/21/23 22:59 06:59 14:59 Output Total 300 Balance -300 Output: Urine 300 Uretheral (Johnson) 300 Other: Weight 145 kg -GENERAL: The patient is sleeping currently and she cannot provide information HEENT: Pupils are round and equally reacting to light. EOMI. No scleral icterus. No conjunctival pallor. Normocephalic, atraumatic. No pharyngeal erythema. No thyromegaly. CARDIOVASCULAR: S1 and S2 present. No murmurs, rubs, or gallops. PULMONARY: Chest is clear to auscultation, no wheezing , no crackles. ABDOMEN: Soft, nontender, nondistended, normoactive bowel sounds. No palpable organomegaly. MUSCULOSKELETAL: No joint swelling or deformity. EXTREMITIES: No cyanosis, clubbing, or pedal edema. NEUROLOGICAL: Gross neurological examination did not reveal any focal deficits. SKIN: No rashes. no petechiae. Results CBC & Chem 7: 12/21/23 07:38 12/21/23 07:38 Labs: Abnormal Lab Results - Last 24 Hours (Table) 12/20/23 12/20/23 12/20/23 Range/Units 18:15 18:15 19:15 RDW 16.0 H (11.5-15.5) % Sodium 136 L (137-145) mmol/L Potassium 3.1 L (3.5-5.1) mmol/L Chloride (98-107) mmol/L BUN (7-17) mg/dL Creatinine (0.52-1.04) mg/dL Glucose 140 H (74-99) mg/dL Total Protein (6.3-8.2) g/dL U Tricyclic Antidepress Detected H (NotDetected) Ur Amphetamines Screen Detected H (NotDetected) U Methamphetamines Scrn Detected H (NotDetected) 12/21/23 12/21/23 Range/Units 07:38 07:38 RDW 15.8 H (11.5-15.5) % Sodium (137-145) mmol/L Potassium (3.5-5.1) mmol/L Chloride 112 H (98-107) mmol/L BUN 4 L (7-17) mg/dL Creatinine 0.49 L (0.52-1.04) mg/dL Glucose (74-99) mg/dL Total Protein 6.1 L (6.3-8.2) g/dL U Tricyclic Antidepress (NotDetected) Ur Amphetamines Screen (NotDetected) U Methamphetamines Scrn (NotDetected) Assessment and Plan Assessment: Seroquel overdose, suspicious for suicidal attempt Recurrent major depression Altered mental status most likely toxic metabolic encephalopathy mildly prolonged QTc interval 505 most likely secondary to aboveand Seroquel overdose Plan: continue with normal saline Continue with sitter at bedside So started on precaution Patient cannot leave AMA, otherwise she needs to be petitioned Psychiatric consult Keep sitter at bedside Repeat EKG GI and DVT prophylaxis with heparin and Pepcid Prognosis is guarded
[2023-12-21] MEDS: HEPARIN SODIUM,PORCINE 5,000 UNIT/ML 1 ML VIAL SQ SCH (21:33)
[2023-12-21] MEDS: FAMOTIDINE 20 MG/2 ML VIAL IV SCH (21:33)
[2023-12-22] MEDS ORDERED: HALOPERIDOL LACTATE 5 MG/ML 1 ML VIAL IVP PRN (00:42)
--- NOTE | 2023-12-22 00:51 | P.CN ---
Psychiatric Consult - . Consult date: 12/21/23 Consult:: IDENTIFYING DATA: This patient is a 28 year old single unemployed female with long history of methamphetamine abuse who presents following overdose on unknown amount of Seroquel. REASON FOR REFERRAL: Psychiatry was consulted for "overdose". HISTORY OF PRESENT ILLNESS: Per ER note, "Patient is a pleasant 28-year-old female present to the emergency department for overdose. Patient admits to this being intentional with thoughts of self-harm. Patient states she took may be 20 or 30. Patient states was a handful. Patient admits to using cocaine at time. No alcohol use. Patient states she has not been eating or drinking well recently." It's unclear the milligram dose of Seroquel that patient overdosed on. Per chart medication pharmacy history, patient does not appear to have filled a script for Seroquel in the past year. She was last admitted to the [facility] in January 2022 due to suicidal attempt by attempting to overdose on Seroquel, but her ex-boyfriend intervened and she "almost swallowed about 3 tablets of medication". In the past it appears she may have been prescribed Seroquel 50 mg tabs, 100 mg tabs, & 300 mg tabs, so it is unclear which tabs she overdosed on at home. EKG completed in the ER shows QTc at that time was 505 seconds (prolongation) on 12/20/23 and repeat EKG shows QTc of 462 ms on 12/21/23. She has a long history of methamphetamine abuse since the age of 16, also cannabis abuse. On my assessment, patient is sedated and has sitter at bedside to maintain safety. She awakens to name, but is confused, unable to focus, thrashes around the bed, appears to be hallucinating since she attempts to reach out and touch things that are not there, repeatedly picks at her bed sheets. She mumbles incoherent jibberish, is not able to engage in meaningful assessment or provide any history. Her lips are dry, she has been getting IV hydration in the ER. Overnight she received Haldol 2 mg IV x 1 for agitation. PAST PSYCHIATRIC HISTORY: Patient is unable to provide history due to altered mental status. The following in taken from chart review. Patient has a a history of MDD, methamphetamine abuse, cannabis abuse per chart. Past psychiatric hospitalizations: most recently admitted to [facility] in January 2022. Previous psychiatric medications from 2021 include Seroquel, Wellbutrin, Gabapentin Per chart she attempted to overdose on Seroquel in January 2022 but was interrupted by her ex-boyfriend. PAST MEDICAL HISTORY: Patient is unable to provide history due to altered mental status. The following in taken from chart review. Past Medical History: No Reported History Additional Past Medical History / Comment(s): Obstetric history: 2 previous normal vaginal deliveries and 1 miscarriage at 7 weeks gestation. This is her fourth . She had care with me she waited to get her blood work done until a few weeks ago. Blood type is O+, antibodies negative, rubella immune, RPR and treponemal ab positive, hepatitis B-. Due to the pos itive syphilis status she was started on IM penicillin and a consult with [facility] was scheduled. History of Any Multi-Drug Resistant Organisms: None Reported Additional Past Surgical History / Comment(s): left hip surgery as an infant Past Anesthesia/Blood Transfusion Reactions: No Reported Reaction Past Psychological History: Anxiety, Depression, PTSD Smoking Status: Current every day smoker, Vaper Past Alcohol Use History: None Reported Past Drug Use History: Methamphetamine ALLERGIES: as per EMR. CHEMICAL DEPENDENCY HISTORY: She has a long history of methamphetamine abuse since the age of 16, also cannabis abuse. She was sent to [facility] substance abuse treatment following [facility] in [facility] 2022 from [facility] FAMILY PSYCHIATRIC/SUBSTANCE USE HISTORY: Not known at this time. SOCIAL HISTORY: Patient is unable to provide history due to altered mental status. The following in taken from chart review. She was born in [place] and raised by mother and step-father. Single, unemployed Has two children who were removed from her custody per chart. She also had a demise in the third trimester in October 2023. History of legal charges for domestic violence. MENTAL STATUS EXAM: General Appearance: Patient appears to be stated age, is disheveled, dressed in hospital gown and partially exposed, poor hygiene & grooming, dry lips. Behavior: Patient is thrashing in bed, picking at bed sheets, reaching out to touch things that are not there Speech: Mumbling incoherent jibberish Mood/Affect: appears anxious with constricted affect Suicidality/Homicidality: Unable to assess due to AMS Perceptions: Appears to be hallucinating, reaching out to touch things that are not there Though content/process: Incoherent, unable to fully assess due to AMS Memory and concentration: AOX 0 Judgment and insight: poor IMPRESSIONS: Delirium, multifactorial (due to overdose on unknown amount of Seroquel, methamphetamine withdrawal) Methamphetamine use disorder with likely withdrawal Cannabis use disorder, by history Rule out substance-induced mood disorder and substance-induced psychosis PLAN: -At this time, it is not possible to fully evaluate patient due to altered mental status, but given the history of Seroquel overdose, patient will likely require inpatient psychiatric admission once delirium resolves. -Patient DOES NOT have decision making capacity at this time and is unable to reason through and communicate/appreciate the risks, benefits and alternatives to treatment. -Delirium precautions recommended with patient including - avoiding use of narcotics and DELPHI PROGRAMMER sedatives, limit anticholinergic medications when possible, frequent re-orientation, minimize use of restraints, open window shades during the day and close them at night -Would recommend the following medication changes/additions: Start Ativan 1 mg Q6H PRN for agitation. Monitor for respiratory depression and monitor vitals signs closely. Recommend using Ativan first for agitation and avoiding antipsychotics as much as possible for now in light of overdose on unknown amount of Seroquel and QTc prolongation. If agitation cannot be controlled with Ativan or other sedative, then can consider a low dose Haldol 1 mg IV Q6H PRN for agitation. I have cancelled the order for Haldol 2 mg IV Q6H PRN for now due to concern for QTc prolongation. -Continue 1:1 sitter for safety -Cannot leave AMA at this time. Patient will need a petition and certification if attempting to leave AMA. -Communicated plan to patient's nurse -Will continue to follow along -Please contact with any questions.
--- NOTE | 2023-12-22 13:47 | P.PN ---
Subjective Progress Note Date: 12/22/23 this is a pleasant 28 years old female with past medical history of recurrent major depression, nicotine dependence, PTSD and anxiety She presents because of altered mental status, as per report patient took unknown amount of Seroquel Currently patient is asleep andcannot provide information after she received Haldol2 mgIV To that patient was easily agitated and they have to put her on restraints. Since currently she is calm I discussed with bed side nurse to take restraints off No family member at bedside on admission patient was afebrile She is tachycardic, mildly hypotensive 87/46, she received 1 L and emergency room and currently 17/65. She has unremarkable CBC, BMP, liver enzymes and lipase Potassium was lysed and replaced Urine hCG is negative Serum alcohol, salicylate and acetaminophen Mineral negative Urine drug screen is positive for WIRE STITCHER MACHINE, amphetamine and methamphetamine EKG shows sinus tachycardia at 116 with QTC 505 No imaging done in the emergency room 12/21. Patient seen and examined. Keeping her eyes closed, not answering any questions. REVIEW OF SYSTEMS: Cannot be obtained as patient is lethargic, not participating in any review of system exam PHYSICAL EXAMINATION: GENERAL: The patient is alert, not in any acute distress. Well developed, well nourished. HEENT: Pupils are round and equally reacting to light. EOMI. No scleral icterus. No conjunctival pallor. Normocephalic, atraumatic. No pharyngeal erythema. No thyromegaly. CARDIOVASCULAR: S1 and S2 present. No murmurs, rubs, or gallops. PULMONARY: Chest is clear to auscultation, no wheezing or crackles. ABDOMEN: Soft, nontender, nondistended, normoactive bowel sounds. No palpable organomegaly. MUSCULOSKELETAL: No joint swelling or deformity. EXTREMITIES: No cyanosis, clubbing, or pedal edema. NEUROLOGICAL: Gross neurological examination did not reveal any focal deficits. SKIN: No rashes. Assessment and plan Seroquel overdose, suspicious for suicidal attempt Recurrent major depression Altered mental status most likely toxic metabolic encephalopathy mildly prolonged QTc interval 505 most likely secondary to aboveand Seroquel overdose Monitor vital signs Monitor CBC Monitor CMP Continue telemetry monitoring Encourage use of incentive spirometer Suicide precautions Elopement precautions Psych following, recommend inpatient psych admissions, and following medication Start Ativan 1 mg Q6H PRN for agitation. Monitor for respiratory depression and monitor vitals signs closely. Recommend using Ativan first for agitation and avoiding antipsychotics as much as possible for now in light of overdose on unknown amount of Seroquel and QTc prolongation. If agitation cannot be controlled with Ativan or other sedative, then can consider a low dose Haldol 1 mg IV Q6H PRN for agitation. Labs and medication were reviewed.. Continue same treatment. Continue with symptomatic treatment. Resume home medication. Monitor labs and vitals. DVT and GI prophylaxis. Further recommendations as per clinical course of the patient Dictation was produced using [email or web address] dictation software. please excuse any grammatical, word or spelling errors. Objective - Vital Signs Vital signs: Vital Signs Temp 98.9 F 12/20/23 17:57 Pulse 86 12/22/23 08:00 Resp 16 12/22/23 08:00 BP 119/72 12/22/23 08:00 Pulse Ox 100 12/22/23 08:00 FiO2 Intake & Output 12/21/23 12/22/23 12/22/23 18:59 06:59 18:59 Output Total 1100 800 Balance -1100 -800 Output: Urine 1100 800 Uretheral (Johnson) 1100 Other: Voiding Method Indwelling Catheter - Labs CBC & Chem 7: 12/21/23 07:38 12/21/23 07:38
[2023-12-23 10:24] LABS: Anisocytosis Slight; Basophils % (A) 0 %; Eosinophils # (A) 0.3 k/uL (0-0.7); Eosinophils % (A) 3 %; HCT 38.6 % (34.0-46.0); HGB 11.9 gm/dL (11.4-16.0); Hypochromasia Slight; Lymphocytes # (A) 1.3 k/uL (1.0-4.8); Lymphocytes % (A) 15 %; MCH 27.2 pg (25.0-35.0); MCHC 30.8 g/dL (31.0-37.0); MCV 88.1 fL (80.0-100.0); Mean Platelet Volume 8.3; Monocytes # (A) 0.6 k/uL (0-1.0); Monocytes % (A) 7 %; Neutrophils # (A) 6.8 k/uL (1.3-7.7); Neutrophils % (A) 74 %; Platelet Count 258 k/uL (150-450); RBC 4.38 m/uL (3.80-5.40); RDW 16.3 % (11.5-15.5); WBC 9.1 k/uL (3.8-10.6)
[2023-12-23 10:29] LABS: ALT 26 U/L (4-34); AST 24 U/L (14-36); African American GFR (CKD) >90 (>60 ml/min/1.73 sqM); Albumin 3.3 g/dL (3.5-5.0); Alkaline Phosphatase 55 U/L (38-126); Anion Gap 9 mmol/L; Blood Urea Nitrogen 9 mg/dL (7-17); Calcium 8.7 mg/dL (8.4-10.2); Carbon Dioxide 24 mmol/L (22-30); Chloride 106 mmol/L (98-107); Glucose 124 mg/dL (74-99); Non-African American GFR(CKD) >90 (>60 ml/min/1.73 sqM); Potassium 3.5 mmol/L (3.5-5.1); Sodium 139 mmol/L (137-145); Total Bilirubin 0.7 mg/dL (0.2-1.3); Total Protein 5.6 g/dL (6.3-8.2)
--- NOTE | 2023-12-23 13:07 | P.PN ---
Subjective Progress Note Date: 12/23/23 this is a pleasant 28 years old female with past medical history of recurrent major depression, nicotine dependence, PTSD and anxiety She presents because of altered mental status, as per report patient took unknown amount of Seroquel Currently patient is asleep andcannot provide information after she received Haldol2 mgIV To that patient was easily agitated and they have to put her on restraints. Since currently she is calm I discussed with bed side nurse to take restraints off No family member at bedside on admission patient was afebrile She is tachycardic, mildly hypotensive 87/46, she received 1 L and emergency room and currently 17. She has unremarkable CBC, BMP, liver enzymes and lipase Potassium was lysed and replaced Urine hCG is negative Serum alcohol, salicylate and acetaminophen [place]eter[place] negative Urine drug screen is positive for DIRECTOR SOCIAL SERVICE, amphetamine and methamphetamine EKG shows sinus tachycardia at 116 with QTC 505 No imaging done in the emergency room 12/21. Patient seen and examined. Keeping her eyes closed, not answering any questions. 12/22. Patient seen and examined. Patient is able to maintain a good conversation. Discussed with her regarding need for her to ambulate. Vital signs stable REVIEW OF SYSTEMS: Denies chest pain. Denies any nausea or vomiting. Denies any lightheadedness or dizziness PHYSICAL EXAMINATION: GENERAL: The patient is alert, not in any acute distress. Well developed, well nourished. HEENT: Pupils are round and equally reacting to light. EOMI. No scleral icterus. No conjunctival pallor. Normocephalic, atraumatic. No pharyngeal erythema. No thyromegaly. CARDIOVASCULAR: S1 and S2 present. No murmurs, rubs, or gallops. PULMONARY: Chest is clear to auscultation, no wheezing or crackles. ABDOMEN: Soft, nontender, nondistended, normoactive bowel sounds. No palpable organomegaly. MUSCULOSKELETAL: No joint swelling or deformity. EXTREMITIES: No cyanosis, clubbing, or pedal edema. NEUROLOGICAL: Gross neurological examination did not reveal any focal deficits. SKIN: No rashes. Assessment and plan Seroquel overdose, suspicious for suicidal attempt Recurrent major depression Altered mental status most likely toxic metabolic encephalopathy mildly prolonged QTc interval 505 most likely secondary to aboveand Seroquel overdose Monitor vital signs Monitor CBC Monitor CMP Continue telemetry monitoring Encourage use of incentive spirometer Suicide precautions Elopement precautions Psych following, recommend inpatient psych admissions, and following medication Start Ativan 1 mg Q6H PRN for agitation. Monitor for respiratory depression and monitor vitals signs closely. Recommend using Ativan first for agitation and avoiding antipsychotics as much as possible for now in light of overdose on unknown amount of Seroquel and QTc prolongation. If agitation cannot be controlled with Ativan or other sedative, then can consider a low dose Haldol 1 mg IV Q6H PRN for agitation. Labs and medication were reviewed.. Continue same treatment. Continue with symptomatic treatment. Resume home medication. Monitor labs and vitals. DVT and GI prophylaxis. Further recommendations as per clinical course of the patient Dictation was produced using [employer] dictation software. please excuse any grammatical, word or spelling errors. Objective - Vital Signs Vital signs: Vital Signs Temp 98 F 12/23/23 08:00 Pulse 98 12/23/23 08:00 Resp 16 12/23/23 08:00 BP 113/62 12/23/23 08:00 Pulse Ox 98 12/23/23 08:00 FiO2 Intake & Output 12/22/23 12/23/23 12/23/23 18:59 06:59 18:59 Intake Total 520 240 Output Total 1100 400 Balance -580 -400 240 Weight 145 kg Intake: Intake, IV Titration 520 Amount Sodium Chloride 0.9% 1, 520 000 ml @ 130 mls/hr IV . [id number] [facility] Rx#:[id number] Oral 240 Output: Urine 1100 400 Other: Voiding Method Indwelling Catheter Indwelling Catheter - Labs CBC & Chem 7: 12/23/23 09:15 12/23/23 09:15 Labs: Abnormal Lab Results - Last 24 Hours (Table) 12/23/23 Range/Units 09:15 MCHC 30.8 L (31.0-37.0) g/dL RDW 16.3 H (11.5-15.5) %
[2023-12-24 03:40] VITALS: TEMP 98
--- NOTE | 2023-12-24 12:39 | P.PN ---
Subjective Progress Note Date: 12/24/23 this is a pleasant 28 years old female with past medical history of recurrent major depression, nicotine dependence, PTSD and anxiety She presents because of altered mental status, as per report patient took unknown amount of Seroquel Currently patient is asleep andcannot provide information after she received Haldol2 mgIV To that patient was easily agitated and they have to put her on restraints. Since currently she is calm I discussed with bed side nurse to take restraints off No family member at bedside on admission patient was afebrile She is tachycardic, mildly hypotensive 87/46, she received 1 L and emergency room and currently . She has unremarkable CBC, BMP, liver enzymes and lipase Potassium was lysed and replaced Urine hCG is negative Serum alcohol, salicylate and acetaminophen [place] negative Urine drug screen is positive for SEED BUYER, amphetamine and methamphetamine EKG shows sinus tachycardia at 116 with QTC 505 No imaging done in the emergency room 12/21. Patient seen and examined. Keeping her eyes closed, not answering any questions. 12/22. Patient seen and examined. Patient is able to maintain a good conversation. Discussed with her regarding need for her to ambulate. Vital signs stable 12/23. Patient seen and examined. Patient medically stable for discharge to inpatient psych. REVIEW OF SYSTEMS: Denies chest pain. Denies any nausea or vomiting. Denies any lightheadedness or dizziness PHYSICAL EXAMINATION: GENERAL: The patient is alert, not in any acute distress. Well developed, well nourished. HEENT: Pupils are round and equally reacting to light. EOMI. No scleral icterus. No conjunctival pallor. Normocephalic, atraumatic. No pharyngeal erythema. No thyromegaly. CARDIOVASCULAR: S1 and S2 present. No murmurs, rubs, or gallops. PULMONARY: Chest is clear to auscultation, no wheezing or crackles. ABDOMEN: Soft, nontender, nondistended, normoactive bowel sounds. No palpable organomegaly. MUSCULOSKELETAL: No joint swelling or deformity. EXTREMITIES: No cyanosis, clubbing, or pedal edema. NEUROLOGICAL: Gross neurological examination did not reveal any focal deficits. SKIN: No rashes. Assessment and plan Seroquel overdose, suspicious for suicidal attempt Recurrent major depression Altered mental status most likely toxic metabolic encephalopathy mildly prolonged QTc interval 505 most likely secondary to aboveand Seroquel overdose Monitor vital signs Monitor CBC Monitor CMP Continue telemetry monitoring Encourage use of incentive spirometer Suicide precautions Elopement precautions Psych following, recommend inpatient psych admissions, and following medication Start Ativan 1 mg Q6H PRN for agitation. Monitor for respiratory depression and monitor vitals signs closely. Recommend using Ativan first for agitation and avoiding antipsychotics as much as possible for now in light of overdose on unknown amount of Seroquel and QTc prolongation. If agitation cannot be controlled with Ativan or other sedative, then can consider a low dose Haldol 1 mg IV Q6H PRN for agitation. Labs and medication were reviewed.. Continue same treatment. Continue with symptomatic treatment. Resume home medication. Monitor labs and vitals. DVT and GI prophylaxis. Further recommendations as per clinical course of the patient Dictation was produced using [employer] dictation software. please excuse any gra mmatical, word or spelling errors. Objective - Vital Signs Vital signs: Vital Signs Temp 98 F 12/24/23 02:00 Pulse 86 12/24/23 08:00 Resp 16 12/24/23 08:00 BP 107/54 12/24/23 08:00 Pulse Ox 98 12/24/23 08:00 FiO2 Intake & Output 12/23/23 12/24/23 12/24/23 18:59 06:59 18:59 Intake Total 240 Output Total 500 Balance -260 Intake: Oral 240 Output: Urine 500 Other: Voiding Method Indwelling Catheter Toilet # Voids 0 - Labs CBC & Chem 7: 12/23/23 09:15 12/23/23 09:15 Labs: Abnormal Lab Results - Last 24 Hours (Table) 12/23/23 12/23/23 Range/Units 09:15 09:15 MCHC 30.8 L (31.0-37.0) g/dL RDW 16.3 H (11.5-15.5) % Glucose 124 H (74-99) mg/dL Total Protein 5.6 L (6.3-8.2) g/dL Albumin 3.3 L (3.5-5.0) g/dL
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
--- NOTE | 2023-12-24 17:27 | P.DS ---
Providers Date of admission: 12/20/23 19:33 Expected date of discharge: 12/24/23 Attending physician: Eryn Moran Consults: 12/20/23 19:33 Consult Physician Routine Consulting Provider: Raul Barrientos Consult Reason/Comments: overdose Do you want consulting provider notified?: Already Contacted Primary care physician: Stated None Hospital Course: Final diagnosis Seroquel overdose, suspicious for suicidal attempt Recurrent major depression Altered mental status secondary to toxic metabolic encephalopathy mildly prolonged QTc interval 505 most likely secondary to above and Seroquel overdose Morbid obesity with a BMI of 54.9 GI prophylaxis DVT prophylaxis Full code Discharge disposition Patient is being transferred in a stable condition with guarded prognosis to [facility] [address]. inpatient psychiatric unit for further psychiatric care. Patient will follow-up with primary care provider in the outpatient setting to establish on discharge. Patient to follow-up with [facility] outpatient as well . Patient is to continue with hemodialysis as scheduled. Total time taken is greater than 35 minutes. Hospital course This is a 28-year-old female who was recently admitted with altered mental status likely secondary to overdose of medications. Patient with major depression took an unknown amount of her Seroquel and highly suspicious for suicidal attempt. Patient closely monitored on the medical unit and doing well. Patient evaluated by psychiatry recommending inpatient psychiatric evaluation and further care. Patient is medically stable for discharge to [facility] [address]. today. C urrently awaiting a bed. Currently no reports of chest pain, shortness of breath, or palpitations. Patient is afebrile. No reports of nausea or vomiting and patient is tolerating diet. Patient will be going to [facility]. psychiatric unit today. Physical exam: Gen: This is a 28-year-old female who is awake, alert and oriented x 3, well- developed, well-nourished, morbidly obese HEENT: Head is atraumatic, normocephalic. Pupils equal, round. Sclerae is anicteric. NECK: Supple. No JVD. No lymphadenopathy. No thyromegaly. LUNGS: Clear to auscultation. No wheezes or rhonchi. No intercostal retract ions. HEART: Regular rate and rhythm. No murmur. ABDOMEN: Soft. Obese bowel sounds are present. No masses. No tenderness. EXTREMITIES: No pedal edema. No calf tenderness. NEUROLOGICAL: Patient is awake, alert and oriented x3. Cranial nerves 2 through 12 are grossly intact. Please refer to medication reconciliation sheet for a list of medications. The impression and plan of care has been dictated by Tessy Barrera, Nurse Practitioner as directed. Dr. Mechelle MD I have performed a history and examination and MDM of this patient, discussed the same with the dictator, and agree with the dictator's assessment and plan as written ,documented as a scribe. Based on total visit time, I have performed more than 50% of the visit. Patient Condition at Discharge: Fair Plan - Discharge Summary Discharge Rx Participant: No New Discharge Prescriptions: No Action No Known Home Medications Discharge Medication List No Known Home Medications 12/21/23 [History] Follow up Appointment(s)/Referral(s): None,Stated [Primary Care Provider] - 1-2 days Discharge Disposition: TRANSFER TO PSYCH HOSP/UNIT
[2023-12-24] MEDS: LORazepam 0.5 MG TAB PO PRN (20:46)
[2023-12-24 21:16] VITALS: BP 109/70; PULSE 91; RESP 18
== END 2023-12-24 20:59 | DRG 817 ==
LOC: EC 17:50 → 3SCARD 19:33
PROVIDERS: ADMIT Internal Medicine; ATTEND Internal Medicine
DX: T43.592A Poisoning by other antipsychotics and neuroleptics, intentional self-harm, initial encounter (principal); G92.8 Other toxic encephalopathy; F33.2 Major depressive disorder, recurrent severe without psychotic features; Z68.43 Body mass index [BMI] 50.0-59.9, adult; E66.01 Morbid (severe) obesity due to excess calories; F15.13 Other stimulant abuse with withdrawal; F05 Delirium due to known physiological condition; I95.89 Other hypotension; F12.10 Cannabis abuse, uncomplicated; F17.290 Nicotine dependence, other tobacco product, uncomplicated; F43.10 Post-traumatic stress disorder, unspecified; F14.90 Cocaine use, unspecified, uncomplicated; R44.1 Visual hallucinations; Z78.1 Physical restraint status; Z63.8 Other specified problems related to primary support group; Z63.4 Disappearance and death of family member; Z56.0 Unemployment, unspecified; Z86.19 Personal history of other infectious and parasitic diseases
CPT/HCPCS: 36415; 51702; 80053; 80143; 80179; 80306; 80320; 81025; 82150; 83690; 83735; 84703; 85025; 87635; 93005; 96361; 96365; 96367; 96368; 96372; 96375; 99291

== ENCOUNTER 2023-12-24 16:48 | Inpatient (IN) | payer MEDICAID ==
[2023-12-24] MEDS ORDERED: MAG HYDROX/AL HYDROX/SIMETH 355 ML BOTTLE PO PRN (19:04)
[2023-12-24] MEDS ORDERED: OLANZapine 10 MG VIAL IM PRN (19:06)
[2023-12-24] MEDS: OLANZapine 2.5 MG TAB PO PRN (22:05)
[2023-12-24 22:54] LABS: Appearance,Urine Clear (Clear); Bilirubin,Urine Negative (Negative); Blood,Urine Negative (Negative); Color,Urine Colorless; Glucose,Urine (UA) Negative (Negative); Ketones,Urine Negative (Negative); Leukocyte Esterase,Urine Small (Negative); Mucus,Urine Rare /hpf; Nitrite,Urine Negative (Negative); PH, Urine 6.5 (5.0-8.0); Protein,Urine Negative (Negative); Specific Gravity,Urine 1.014 (1.001-1.035); Squamous Epithelial Cell,Urine <1 /hpf (0-4); Urobilinogen,Urine <2.0 mg/dL (<2.0); WBC,Urine 1 /hpf (0-5)
--- NOTE | 2023-12-25 00:21 | P.MDCNMH ---
Past Medical History Past Medical History: No Reported History Additional Past Medical History / Comment(s): Obstetric history: 2 previous normal vaginal deliveries and 1 miscarriage at 7 weeks gestation. This is her fourth . She had care with me she waited to get her blood work done until a few weeks ago. Blood type is O+, antibodies negative, rubella immune, RPR and treponemal ab positive, hepatitis B-. Due to the positive syphilis status she was started on IM penicillin and a consult with [facility] was scheduled. History of Any Multi-Drug Resistant Organisms: None Reported Additional Past Surgical History / Comment(s): left hip surgery as an Past Anesthesia/Blood Transfusion Reactions: No Reported Reaction Past Psychological History: Anxiety, Depression, PTSD Smoking Status: Current every day smoker, Vaper Past Alcohol Use History: None Reported Past Drug Use History: Methamphetamine - Past Family History Mother Family Medical History: Cancer Additional Family Medical History / Comment(s): grandmother breast CA Father Family Medical History: Myocardial Infarction ([place]) Additional Family Medical History / Comment(s): grandfather had [place] Medications and Allergies Home Medications Medication Instructions Recorded Confirmed Type No Known Home Medications 12/21/23 12/24/23 History Allergies Allergy/AdvReac Type Severity Reaction Status Date / Time No Known Allergies Allergy Verified 12/24/23 21:11 Physical Exam Vitals: Vital Signs Temp Pulse Resp BP Pulse Ox 12/24/23 21:18 98.4 F 91 18 123/78 99 Intake and Output 12/24/23 12/24/23 12/25/23 14:59 22:59 06:59 Other: Weight 65.771 kg Results Labs: Abnormal Lab Results - Last 24 Hours (Table) 12/24/23 Range/Units 22:41 Ur Leukocyte Esterase Small H (Negative) Urine Mucus Rare H (None) /hpf
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
[2023-12-25] MEDS: NICOTINE 14MG/24HR PATCH TRANSDERM SCH (11:47)
[2023-12-25] MEDS: SERTRALINE 50 MG TAB PO SCH (11:47)
--- NOTE | 2023-12-25 12:26 | P.MDCNMH ---
History of Present Illness H&P Date: 12/25/23 History of present illness; This is a 28-year-old female who was recently admitted with altered mental status likely secondary to overdose of medications. Patient has history of major depression took an unknown amount of her Seroquel and highly suspicious for suicidal attempt. Patient was initially admitted to medicine service and psych were consulted. Psych eval the patient and recommended that once patient is medically stable she needs to be transferred to inpatient psych. Patient has been monitored in the hospital for the last few days and was deemed medically stable for transfer to inpatient psych. Patient admitted to internal medicine service REVIEW OF SYSTEMS: CONSTITUTIONAL: No fever, no malaise, no fatigue. HEENT: No recent visual problems or hearing problems. Denied any sore throat. CARDIOVASCULAR: No chest pain, orthopnea, PND, no palpitations, no syncope. PULMONARY: No shortness of breath, no cough, no hemoptysis. GASTROINTESTINAL: No diarrhea, no nausea, no vomiting, no abdominal pain. NEUROLOGICAL: No headaches, no weakness, no numbness. HEMATOLOGICAL: Denies any bleeding or petechiae. GENITOURINARY: Denies any burning micturition, frequency, or urgency. MUSCULOSKELETAL/RHEUMATOLOGICAL: Denies any joint pain, swelling, or any muscle pain. ENDOCRINE: Denies any polyuria or polydipsia. The rest of the 14-point review of systems is negative. PHYSICAL EXAMINATION: GENERAL: The patient is alert and oriented x3, not in any acute distress. Well developed, well nourished. HEENT: Pupils are round and equally reacting to light. EOMI. No scleral icterus. No conjunctival pallor. Normocephalic, atraumatic. No pharyngeal erythema. No thyromegaly. CARDIOVASCULAR: S1 and S2 present. No murmurs, rubs, or gallops. PULMONARY: Chest is clear to auscultation, no wheezing or crackles. ABDOMEN: Soft, nontender, nondistended, normoactive bowel sounds. No palpable organomegaly. MUSCULOSKELETAL: No joint swelling or deformity. EXTREMITIES: No cyanosis, clubbing, or pedal edema. NEUROLOGICAL: Gross neurological examination did not reveal any focal deficits. SKIN: No rashes. Assessment and plan Seroquel overdose, suspicious for suicidal attempt Recurrent major depression Altered mental status secondary to toxic metabolic encephalopathy resolved mildly prolonged QTc interval 505 most likely secondary to above and Seroquel overdose Morbid obesity with a BMI of 54.9 Monitor vital signs Elopement precaution Continue behavioral therapy Continue psych meds per psychiatry team Labs and medication were reviewed.. Continue same treatment. Continue with symptomatic treatment. Resume home medication. Monitor labs and vitals. DVT and GI prophylaxis. Further recommendations as per clinical course of the patient Dictation was produced using [employer] dictation software. please excuse any grammatical, word or spelling errors. Past Medical History Past Medical History: No Reported History Additional Past Medical History / Comment(s): Obstetric history: 2 previous normal vaginal deliveries and 1 miscarriage at 7 weeks gestation. This is her fourth . She had care with me she waited to get her blood work done until a few weeks ago. Blood type is O+, antibodies negative, rubella immune, RPR and treponemal ab positive, hepatitis B-. Due to the positive syphilis status she was started on IM penicillin and a consult with [facility] was scheduled. History of Any Multi-Drug Resistant Organisms: None Reported Additional Past Surgical History / Comment(s): left hip surgery as an infant Past Anesthesia/Blood Transfusion Reactions: No Reported Reaction Past Psychological History: Anxiety, Depression, PTSD Smoking Status: Current every day smoker, Vaper Past Alcohol Use History: None Reported Past Drug Use History: Methamphetamine - Past Family History Mother Family Medical History: Cancer Additional Family Medical History / Comment(s): grandmother breast CA Father Family Medical History: Myocardial Infarction ([place]) Additional Family Medical History / Comment(s): grandfather had [place] Medications and Allergies Home Medications Medication Instructions Recorded Confirmed Type No Known Home Medications 12/21/23 12/24/23 History Allergies Allergy/AdvReac Type Severity Reaction Status Date / Time No Known Allergies Allergy Verified 12/24/23 21:11 Physical Exam Vitals: Vital Signs Temp Pulse Resp BP Pulse Ox 12/24/23 21:18 98.4 F 91 18 123/78 99 Intake and Output 12/24/23 12/25/23 12/25/23 22:59 06:59 14:59 Other: Weight 65.771 kg Cranial Nerve Examination - Cranial Nerves Cranial Nerve II- Optic: Intact (Cranial nerves II to XII intact) Cranial Nerve III- Oculomotor: Intact Cranial Nerve IV- Trochlear: Intact Cranial Nerve V- Trigeminal: Intact Cranial Nerve - Abducens: Intact Cranial Nerve VII- Facial: Intact Cranial Nerve VIII- Auditory: Intact Cranial Nerve IX- Glossopharyngeal: Intact Cranial Nerve X- Vagus: Intact Cranial Nerve XI- Accessory: Intact Cranial Nerve XII- Hypoglossal: Intact Results Labs: Abnormal Lab Results - Last 24 Hours (Table) 12/24/23 Range/Units 22:41 Ur Leukocyte Esterase Small H (Negative) Urine Mucus Rare H (None) /hpf
[2023-12-25 12:43] LABS: Anisocytosis Slight; Basophils # (A) 0.1 k/uL (0-0.2); Basophils % (A) 1 %; Eosinophils # (A) 0.3 k/uL (0-0.7); Eosinophils % (A) 3 %; HCT 41.3 % (34.0-46.0); HGB 12.7 gm/dL (11.4-16.0); Lymphocytes # (A) 1.6 k/uL (1.0-4.8); Lymphocytes % (A) 22 %; MCH 27.2 pg (25.0-35.0); MCHC 30.8 g/dL (31.0-37.0); MCV 88.5 fL (80.0-100.0); Mean Platelet Volume 7.8; Monocytes # (A) 0.4 k/uL (0-1.0); Monocytes % (A) 6 %; Neutrophils # (A) 5.2 k/uL (1.3-7.7); Neutrophils % (A) 68 %; Platelet Count 305 k/uL (150-450); RBC 4.66 m/uL (3.80-5.40); RDW 16.4 % (11.5-15.5); WBC 7.6 k/uL (3.8-10.6)
[2023-12-25 12:56] LABS: ALT 19 U/L (4-34); AST 22 U/L (14-36); African American GFR (CKD) >90 (>60 ml/min/1.73 sqM); Albumin 3.7 g/dL (3.5-5.0); Alkaline Phosphatase 77 U/L (38-126); Anion Gap 5 mmol/L; Blood Urea Nitrogen 12 mg/dL (7-17); Calcium 8.9 mg/dL (8.4-10.2); Carbon Dioxide 28 mmol/L (22-30); Chloride 105 mmol/L (98-107); Glucose 97 mg/dL (74-99); Non-African American GFR(CKD) >90 (>60 ml/min/1.73 sqM); Potassium 4.2 mmol/L (3.5-5.1); Sodium 138 mmol/L (137-145); Total Bilirubin 0.3 mg/dL (0.2-1.3); Total Protein 6.2 g/dL (6.3-8.2)
[2023-12-25] MEDS: NICOTINE GUM (POLACRILEX) 2 MG GUM BUCCAL PRN (14:46)
[2023-12-25] MEDS: DOXEPIN 10 MG CAP PO SCH (20:53)
[2023-12-26] MEDS ORDERED: HALOPERIDOL LACTATE 5 MG/ML 1 ML VIAL IM PRN (12:04)
--- NOTE | 2023-12-26 12:13 | P.PN ---
Progress Note - Text Progress Note Date: 12/26/23 Interval History: Patient was seen in her room, and was directable and agreeable to speak with kaitlin philip in the office. Patient states she is tired today. States her anxiety is mildly improving. Patient reports that she slept well last night. When asked if she was depressed, she states, "you can't really be depressed when you sleep". continus to mainly isolate in her room. Patient is going to a couple groups, but not many. Encouraged patient to do so, and not staying in her room, secluding herself. At this time patient denies any suicidal or homicidal ideations, intent or plan. Patient denies any auditory, visual hallucinations and denies any paranoia or delusions. Patient denies any side effects from the medications and has been compliant with meds. MENTAL STATUS EXAM: General Appearance: Patient appears to be stated age, is less disheveled, dressed in hospital gown, improving hygiene and grooming. Behavior: Patient is cooperative today, vague at times Speech: Coherent, fluent, normal tone Mood/Affect: States that she is feeling tired, affect was congruent Suicidality/Homicidality: Denies and suicidal or homicidal ideations, intent or plan Perceptions: Denies any auditory or visual hallucinations Though content/process: Logical, no delusions or paranoia. Memory and concentration: AOX 3, follows commands and appropriate Judgment and insight: poor IMPRESSIONS: Suicide attempt by overdose on psychotropic medications Major depressive disorder, severe, recurrent without psychotic features Methamphetamine use disorder Cannabis use disorder PLAN: -Patient is admitted under voluntary status to [facility] for stabilization of psychiatric symptoms and safety. -Medications : increase Zoloft 100mg and change to qhs for mood/anxiety, doxepin 10mg PO qhs for sleep/mood -Ativan and Haldol PRN for agitation/aggression -NRT - nicotine patch -SW on board for discharge planning. Encourage patient to participate in groups to work on coping skills. patient got the number for access line for rehab however still waiting on her to make the call for screening.
[2023-12-26] MEDS: LORazepam 1 MG TAB PO PRN (13:35)
[2023-12-26] MEDS: SERTRALINE 100 MG TAB PO SCH (20:42)
[2023-12-26] MEDS: IBUPROFEN 600 MG TAB PO PRN (20:42)
[2023-12-26] MEDS: ACETAMINOPHEN TAB 325 MG TAB PO PRN (22:01)
--- NOTE | 2023-12-27 11:53 | P.PN ---
Subjective Progress Note Date: 12/27/23 Principal diagnosis: IMPRESSIONS: Suicide attempt by overdose on psychotropic medications Major depressive disorder, severe, recurrent without psychotic features Methamphetamine use disorder Cannabis use disorder Interval History: Patient was directable and agreeable to speak with investigative writer in the office. States her anxiety still a problem she says Ativan does not seem to give her much relief she says she is taking gabapentin for peripheral neuropathy and pain and help that but she will remember it helping her anxiety much and she has not tried hydroxyzine.. At this time patient denies any suicidal or homicidal ideations, intent or plan. Patient denies any auditory, visual hallucinations and denies any paranoia or delusions. Patient denies any side effects from the m edications and has been compliant with meds. MENTAL STATUS EXAM: Eye contact adequate General Appearance: Patient appears to be stated age, is less disheveled, dressed in hospital gown, improving hygiene and grooming. Behavior: Patient is cooperative today, vague at times Speech: Coherent, fluent, normal tone Mood/Affect: States that she is feeling tired, affect was serious and slightly depressed Suicidality/Homicidality: Denies and suicidal or homicidal ideations, intent or plan Perceptions: Denies any auditory or visual hallucinations Though content/process: Logical, no delusions or paranoia. Memory and concentration: AOX 3, follows commands and appropriate Judgment and insight: poor IMPRESSIONS: Suicide attempt by overdose on psychotropic medications Major depressive disorder, severe, recurrent without psychotic features/panic attacks Methamphetamine use disorder Cannabis use disorder Assessment: Patient still quite anxious going to be some time until the Zoloft kicks in which she seems to be tolerating it. Interestingly it seems to make her feel tired during the day so she is getting it at night. Still has a lot of trouble falling asleep PLAN: -Patient is admitted under voluntary status to [facility] for stabilization of psychiatric symptoms and safety. -Medications : increase Zoloft 100mg and change to qhs for mood/anxiety, increase doxepin to 25 mg PO qhs for sleep/mood. Restart her on gabapentin 600 3 times daily which she is taken in the past with benefit for her chronic pain -Ativan, hydroxyzine and Haldol PRN for agitation/aggression -NRT - nicotine patch -SW on board for discharge planning. Encourage patient to participate in groups to work on coping skills. patient got the number for access line for rehab however still waiting on her to make the call for screening. Objective - Vital Signs Vital signs: Vital Signs Temp 98.1 F 12/27/23 06:27 Pulse 93 12/27/23 06:27 Resp 16 12/27/23 06:27 BP 131/58 12/27/23 06:27 Pulse Ox 97 12/26/23 07:02 FiO2 - Labs CBC & Chem 7: 12/25/23 12:21 12/25/23 12:21
[2023-12-27] MEDS: GABAPENTIN 300 MG CAP PO SCH (16:08)
[2023-12-27] MEDS: haloperidoL 5 MG TAB PO PRN (16:48)
[2023-12-27] MEDS: DOXEPIN 25 MG CAP PO SCH (21:29)
--- NOTE | 2023-12-28 13:41 | P.PN ---
Subjective Progress Note Date: 12/28/23 Principal diagnosis: IMPRESSIONS: Suicide attempt by overdose on psychotropic medications Major depressive disorder, severe, recurrent without psychotic features Methamphetamine use disorder Cannabis use disorder Interval History: Patient was directable and agreeable to speak with teletypewriter installer in the office she got up and came even though she was taking in the. States her anxiety still a problem she says Ativan does not seem to give her much relief she says she says that the gabapentin is worth taking because it does block the peripheral neuropathy and that allowed her to get a good sleep in fact she is too sleepy now during the day... At this time patient denies any suicidal or homicidal ideations, intent or plan. Patient denies any auditory, visual hallucinations and denies any paranoia or delusions. Patient denies any side effects from the medications and has been compliant with meds. She says the hydroxyzine seems to have been helpful at the higher dose MENTAL STATUS EXAM: Eye contact adequate General Appearance: Patient appears to be stated age, is less disheveled, dressed in hospital gown, improving hygiene and grooming. Behavior: Patient is cooperative today, vague at times Speech: Coherent, fluent, normal tone Mood/Affect: States that she is feeling tired, affect was serious and slightly depressed Suicidality/Homicidality: Denies and suicidal or homicidal ideations, intent or plan Perceptions: Denies any auditory or visual hallucinations Though content/process: Logical, no delusions or paranoia. Memory and concentration: AOX 3, follows commands and appropriate Judgment and insight: poor IMPRESSIONS: Suicide attempt by overdose on psychotropic medications Major depressive disorder, severe, recurrent without psychotic features/panic attacks Methamphetamine use disorder Cannabis use disorder Assessment: Patient still quite anxious going to be some time until the Zoloft kicks in which she seems to be tolerating it. Interestingly it seems to make her feel tired during the day so she is getting it at night. Still has a lot of trouble falling asleep PLAN: -Patient is admitted under voluntary status to [facility] for stabilization of ps ychiatric symptoms and safety. -Medications : increase Zoloft 100mg and change to qhs for mood/anxiety, I'm then just discontinue the doxepin said she is sleeping too heavy at this point that is not necessary for depression and anxiety is just for sleep Restart her on gabapentin 600 3 times daily which she is taken in the past with benefit for her chronic pain -Continue Ativan, hydroxyzine and Haldol PRN for agitation/aggression -NRT - nicotine patch -SW on board for discharge planning. Encourage patient to participate in groups to work on coping skills. patient got the number for access line for rehab however still waiting on her to make the call for screening. Objective - Vital Signs Vital signs: Vital Signs Temp 98.1 F 12/27/23 06:27 Pulse 113 H 12/28/23 10:20 Resp 16 12/27/23 06:27 BP 103/63 12/28/23 10:20 Pulse Ox 97 12/26/23 07:02 FiO2 - Labs CBC & Chem 7: 12/25/23 12:21 12/25/23 12:21
[2023-12-29] MEDS: MELATONIN 5 MG TABLET PO PRN (00:23)
[2023-12-29] MEDS: MELATONIN 5 MG TABLET PO SCH ×2 (05:49→20:13)
[2023-12-29] MEDS: NICOTINE 14MG/24HR PATCH TRANSDERM SCH (08:44)
--- NOTE | 2023-12-29 10:31 | P.PN ---
Progress Note - Text Progress Note Date: 12/29/23 Interval History: Patient was seen in group, and directable to speak with proposal manager writer in the office. Today, patient states that she is doing ok. Patient is going to groups. Technology Instructor spoke with patient regarding gabapentin. Technology Instructor explained to patient that it is a controlled medication, and I can not prescribe it upon discharge. Patient agreeable to go off the medication. Patient states her appetite is good. She is having problems sleeping at night, encouraged patient to stay awake more during the day, and added Melatonin to her medication regimen. Patient claims that she is having episodes of anxiety and depression. States she would like to be on a mood stabilizer, proposal manager writer went over several options with patient. Patient agreeable to Depakote, explained to patient that she would have to be on oral contraception prior, due to complications, and patient being child bearing age, with several previous pregnancies. Will have staff reach out to OB for recommendations. Patient offered no other complaints. At this time patient denies any suicidal or homicidal ideations, intent or plan. Patient denies any auditory, visual hallucinations and denies any paranoia or delusions. Patient denies any side effects from the medications and has been compliant with meds. MENTAL STATUS EXAM: General Appearance: Patient appears to be stated age, is less disheveled, dressed in hospital gown, improving hygiene and grooming. Behavior: Patient is cooperative today Speech: Coherent, fluent, normal tone Mood/Affect: States that she is pretty good, affect was congruent Suicidality/Homicidality: Denies and suicidal or homicidal ideations, intent or plan Perceptions: Denies any auditory or visual hallucinations Though content/process: Logical, no delusions or paranoia Memory and concentration: AOX3, follows commands and appropriate Judgment and insight: poor IMPRESSIONS: Suicide attempt by overdose on psychotropic medications Major depressive disorder, severe, recurrent without psychotic features/panic attacks Methamphetamine use disorder Cannabis use disorder PLAN: -Patient is admitted under voluntary status to [facility] for stabilization of psychiatric symptoms and safety. -Medications : increase Zoloft 150mg qhs for mood/anxiety, D/C gabapentin, changed melatonin 10mg qhs for sleep, add visteral 50mg [id number] PRN for anxiety -Continue Ativan, hydroxyzine and Haldol PRN for agitation/aggression -will Contact OB for contraception recommendations as patient is requesting to be started on depakote despite psychoeducation on the possible teratogenicity of the medication if she were to become . -NRT - nicotine patch -SW on board for discharge planning. Encourage patient to participate in groups to work on coping skills. patient got the number for access line for rehab however still waiting on her to make the call for screening. Likely discharge in 2-3 days back home, if patient continues to improve.
[2023-12-29] MEDS: MAGNESIUM HYDROXIDE 2,400 MG/30 ML CUP PO PRN (18:28)
[2023-12-29] MEDS: hydrOXYzine pamoate 25 MG CAP PO PRN (18:28)
[2023-12-29] MEDS: SERTRALINE 100 MG TAB PO SCH (20:13)
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
[2023-12-30] MEDS: QUEtiapine 50 MG TAB PO SCH (20:07)
[2023-12-31 07:27] VITALS: BP 101/60; PULSE 64; RESP 12; TEMP 98.1
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
[2023-12-31 11:52] LABS: T4, Free (Free Thyroxine) 0.51 ng/dL (0.78-2.19)
[2023-12-31 15:27] LABS: C. trachomatis,PCR Negative (Negative); N. gonorrhoeae,PCR Negative (Negative)
[2023-12-31 16:53] LABS: HIV 2 AB Non-Reactive (Non-Reactive); HIV AB P24 Non-Reactive (Non-Reactive); HIV P24 AG Non-Reactive (Non-Reactive)
== END 2023-12-31 13:17 | disposition home or self-care (01) | DRG 756 ==
LOC: 3MHU 20:47
PROVIDERS: ADMIT Psychiatry & Neurology Psychiatry; ATTEND Psychiatry & Neurology Psychiatry
DX: F99 Mental disorder, not otherwise specified (principal); F33.2 Major depressive disorder, recurrent severe without psychotic features; F43.10 Post-traumatic stress disorder, unspecified; F41.9 Anxiety disorder, unspecified; R94.31 Abnormal electrocardiogram [ECG] [EKG]; A53.9 Syphilis, unspecified; T43.592A Poisoning by other antipsychotics and neuroleptics, intentional self-harm, initial encounter; G92.8 Other toxic encephalopathy; F12.10 Cannabis abuse, uncomplicated; E66.01 Morbid (severe) obesity due to excess calories; F15.20 Other stimulant dependence, uncomplicated; F17.200 Nicotine dependence, unspecified, uncomplicated; Z68.43 Body mass index [BMI] 50.0-59.9, adult; Z79.899 Other long term (current) drug therapy; Z71.51 Drug abuse counseling and surveillance of drug abuser; Z71.89 Other specified counseling
CPT/HCPCS: 80053; 81001; 83036; 84439; 84443; 84481; 85025; 86592; 86780; 87390; 87491; 87591; 87661; 93005

== ENCOUNTER 2024-01-08 02:05 | Emergency (ER) | payer OTHER ==
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
[2024-01-08 08:38] VITALS: TEMP 98.6
[2024-01-08 13:50] VITALS: BP 132/71; PULSE 70; RESP 16
== END 2024-01-08 13:21 | disposition home or self-care (01) ==
LOC: EC 02:05
DX: F43.21 Adjustment disorder with depressed mood (principal); F15.10 Other stimulant abuse, uncomplicated; F17.290 Nicotine dependence, other tobacco product, uncomplicated
CPT/HCPCS: 82075; 99285

== ENCOUNTER 2024-01-10 10:56 | Emergency (ER) | payer OTHER ==
[2024-01-10 11:11] VITALS: BP 126/90; PULSE 95; RESP 16; TEMP 97.9
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
[2024-01-10 13:48] LABS: Amphetamine Screen,Urine Detected (NotDetected); Barbiturate Screen,Urine Not Detected (NotDetected); Benzodiazepines Screen,Urine Detected (NotDetected); Cocaine Screen,Urine Not Detected (NotDetected); Methadone Screen, Urine Not Detected (NotDetected); Opiate Screen,Urine Not Detected (NotDetected); Oxycodone Screen, Urine Not Detected (NotDetected); Phencyclidine Screen,Urine Not Detected (NotDetected); Tricyclic Antidepressant,Urine Not Detected (NotDetected); Urn Cannabinoid Scrn Not Detected (NotDetected)
== END 2024-01-10 15:30 | disposition home or self-care (01) ==
LOC: EC 10:56
DX: F41.9 Anxiety disorder, unspecified (principal); F32.A Depression, unspecified; F17.290 Nicotine dependence, other tobacco product, uncomplicated
CPT/HCPCS: 80306; 81025; 82075; 99285

== ENCOUNTER 2024-01-13 18:36 | Inpatient (IN) | payer MEDICAID, OTHER ==
--- NOTE | 2024-01-13 19:37 | ED ---
General Adult HPI - General Chief complaint: Psychiatric Symptoms Stated complaint: Petition Time Seen by Provider: 01/13/24 18:45 Source: patient, EMS, RN notes reviewed, old records reviewed Mode of arrival: EMS Limitations: no limitations - History of Present Illness Initial comments: 28-year-old female was brought to the emergency department by the Business Transformation Consultant's to admit because she had a court ordered petition to come to the hospital. Patient was talking to the police and very bizarre ways stating that she thinks they are taking her to the dungeon. States that the dungeons the back place and I am orlanod that I have never been there. Patient also states there are multiple people that might want to hurt her. Patient states she does do methamphetamine patient states she did it yesterday. Patient denies suicidal or homicidal ideations. Patient denies any physical complaints today. Patient often finishes half a sentence and then starts a completely different topic. - Related Data Home Medications Medication Instructions Recorded Confirmed Melatonin 10 mg PO HS 01/13/24 01/13/24 QUEtiapine [SEROquel] 50 mg PO HS 01/13/24 01/13/24 Sertraline [Zoloft] 150 mg PO HS 01/13/24 01/13/24 cloNIDine HCL [Catapres] 0.1 mg PO DIRECTED 01/13/24 01/13/24 hydrOXYzine pamoate [Vistaril] 25 mg PO QID PRN 01/13/24 01/13/24 Allergies Allergy/AdvReac Type Severity Reaction Status Date / Time No Known Allergies Allergy Verified 01/13/24 19:11 Review of Systems ROS Statement: Those systems with pertinent positive or pertinent negative responses have been documented in the HPI. ROS Other: All systems not noted in ROS Statement are negative. Past Medical History Smoking Status: Vaper Past Alcohol Use History: None Reported Past Drug Use History: Marijuana, Methamphetamine General Exam - General Exam Comments Initial Comments: GENERAL: Patient is well-developed and well-nourished. Patient is nontoxic and well- hydrated and is in no acute distress. ENT: Neck is soft and supple. No significant lymphadenopathy is noted. Oropharynx i s clear. Moist mucous membranes. Neck has full range of motion without eliciting any pain. EYES: The sclera were anicteric and conjunctiva were pink and moist. Extraocular movements were intact and pupils were equal round and reactive to light. Eyelids were unremarkable. PULMONARY: Unlabored respirations. Good breath sounds bilaterally. No audible rales rhonchi or wheezing was noted. CARDIOVASCULAR: There is a regular rate and rhythm without any murmurs gallops or rubs. ABDOMEN: Soft and nontender with normal bowel sounds. SKIN: Skin is clear with no lesions or rashes and otherwise unremarkable. NEUROLOGIC: Patient is alert and oriented difficulty to assess secondary to the fact the patient would not always answer my questions.. Cranial nerves II through XII are grossly intact. Motor and sensory are also intact. Normal speech, volume and content. Symmetrical smile. MUSCULOSKELETAL: Normal extremities with adequate strength and full range of motion. LYMPHATICS: No significant lymphadenopathy is noted PSYCHIATRIC: Patient is very bizarre often not finishing sentences on the same minor thought that she started the sentence with. Patient was talking about being taken to a dungeon. Patient denies suicidal or homicidal ideations. Patient does admit to doing methamphetamine Limitations: no limitations Course Vital Signs 01/13/24 18:43 Temperature 98.2 F Pulse Rate 111 H Respiratory 20 Rate Blood Pressure 122/69 Medical Decision Making - Medical Decision Making Was pt. sent in by a medical professional or institution (, PA, MEDICAL ASSISTANT SECRETARY, urgent care, hospital, or skilled nursing...) When possible be specific @ -Patient was petitioned by the court to come to the emergency department. Did you speak to anyone other than the patient for history (EMS, parent, family, police, friend...)? What history was obtained from this source @ -No Did you review nursing and triage notes (agree or disagree)? Why? @ -I reviewed and agree with nursing and triage notes Were old charts reviewed (outside hosp., previous admission, EMS record, old EKG, old radiological studies, urgent care reports/EKG's, skilled nursing records)? Report findings @ -No old charts were reviewed Differential Diagnosis (cHest pain, altered mental status, abdominal pain women, abdominal pain men, vaginal bleeding, weakness, fever, dyspnea, syncope, headache, dizziness, GI bleed, back pain, seizure, CVA, palpatations, mental health, musculoskeletal)? @ -Differential Mental Health Depression, anxiety, bipolar, psychosis, schizophrenia, borderline personality, situational depression, adjustment disorder, behavioral disorder, brain tumor, malingering, substance abuse, encephalopathy, medication reaction, dementia, hypothyroidism, degenerative neurologic disorder, lupus.... This is not meant to be all-inclusive list EKG interpreted by me (3pts min.). @ -As above X-rays interpreted by me (1pt min.). @ -None done CT interpreted by me (1pt min.). @ -None done U/S interpreted by me (1pt. min.). @ -None done What testing was considered but not performed or refused? (CT, X-rays, U/S, labs)? Why? @ -None What meds were considered but not given or refused? Why? @ -None Did you discuss the management of the patient with other professionals (kelin wagoner i.e., Dr., PA, MEDICAL ASSISTANT SECRETARY, lab, RT, psych nurse, social work instructor, medical videographer, teacher, fisheries enforcement officer, disease case manager)? Give summary @ -No Was smoking cessation discussed for >3mins.? @ -No Was critical care preformed (if so, how long)? @ -No Were there social determinants of health that impacted care today? How? (Homelessness, low income, unemployed, alcoholism, drug addiction, transportation, low edu. Level, literacy, decrease access to med. care, correction, rehab)? @ -No Was there de-escalation of care discussed even if they declined (Discuss DNR or withdrawal of care, Hospice)? DNR status @ -No What co-morbidities impacted this encounter? (DM, HTN, Smoking, COPD, CAD, Cancer, CVA, ARF, Chemo, Hep., AIDS, mental health diagnosis, sleep apnea, morbid obesity)? @ -None Was patient admitted / discharged? Hospital course, mention meds given and route, prescriptions, significant lab abnormalities, going to OR and other pertinent info. @ -Patient was acutely psychotic could not stay on topic and constantly was talking about people trying to hurt her or talking about currently being in a dungeon. Patient also thought that the FBI was after and at 1 point time was stating that the cartel was going to harm her. I filled out a clinical certification so the patient will be further evaluated. EPS did evaluate the patient and somehow came to the conclusion that the patient could be discharged home even though she is acutely psychotic and think she is currently in a dungeon and people are after her. I did not feel it was safe for her to go home so I filled out the clinical certification Undiagnosed new problem with uncertain prognosis? @ -No Drug Therapy requiring intensive monitoring for toxicity (Heparin, Nitro, Insulin, Cardizem)? @ -No Were any procedures done? @ -No Diagnosis/symptom? @ -Acute psychosis Acute, or Chronic, or Acute on Chronic? @ -Acute Uncomplicated (without systemic symptoms) or Complicated (systemic symptoms)? @ -Complicated Side effects of treatment? @ -No Exacerbation, Progression, or Severe Exacerbation? @ -No Poses a threat to life or bodily function? How? (Chest pain, USA, CA, pneumonia, PE, COPD, DKA, ARF, appy, cholecystitis, CVA, Diverticulitis, Homicidal, Suicidal, threat to s notaff... and all critical care pts) @ -No Disposition Clinical Impression: Psychosis, Methamphetamine abuse Disposition: ADMITTED IP TO THIS HOSP Referrals: None,Stated [Primary Care Provider] - 1-2 days Time of Disposition: 20:59
[2024-01-14] MEDS: ZIPRASIDONE 20 MG VIAL IM STA (11:30)
[2024-01-14] MEDS ORDERED: MAGNESIUM HYDROXIDE 2,400 MG/30 ML CUP PO PRN (15:09)
[2024-01-14] MEDS ORDERED: HALOPERIDOL LACTATE 5 MG/ML 1 ML VIAL IM PRN (15:13)
[2024-01-14] MEDS ORDERED: LORazepam 2 MG/ML INJ IM PRN (15:13)
[2024-01-14] MEDS: IBUPROFEN 600 MG TAB PO PRN (16:18)
[2024-01-14] MEDS: LORazepam 1 MG TAB PO PRN (16:21)
[2024-01-14] MEDS: haloperidoL 5 MG TAB PO PRN (16:21)
[2024-01-14] MEDS: cloNIDine HCL 0.1 MG TAB PO SCH (21:13)
[2024-01-14] MEDS: PALIPERIDONE 3 MG TAB.ER.24 PO SCH (23:11)
--- NOTE | 2024-01-15 00:59 | P.PN ---
Progress Note - Text Progress Note Date: 01/15/24 Attempted to see the patient in the mental health unit at 2100 on 01/13. Informed by the [facility] RN that the patient was sedated and inappropriate for evaluation at this time.
[2024-01-15] MEDS: NICOTINE 14MG/24HR PATCH TRANSDERM SCH (09:15)
[2024-01-15] MEDS: SERTRALINE 50 MG TAB PO SCH (09:15)
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
--- NOTE | 2024-01-16 10:56 | P.PN ---
Progress Note - Text Progress Note Date: 01/16/24 Interval History: Patient was seen in her room, and was directable and agreeable to speak with senior grant writer iat the bedside. Patient states she does not know how she is this morning, and she is confused as to why she is here. continues to have poor insight/judgment, She is quite sedated, so senior grant writer will change her invega to qhs, senior grant writer explained this to the patient, she was agreeable. claims she did go to only group so far. At this time patient denies any suicidal or homical ideations, intent or plan. Patient denies any auditory, visual hallucinations and denies any paranoia or delusions. Patient denies any side effects from the medications and has been compliant with meds. MENTAL STATUS EXAM: General Appearance: Patient appears to be stated age, is less disheveled, dressed in hospital gown,poor hygiene and grooming. Disheveled Behavior: Patient is somewhat cooperative today, laying in bed, vague at times, improving mildly Speech: Coherent, fluent, quiet tone Mood/Affect: States that she does not know how she is feeling, affect was congruent and constricted. Suicidality/Homicidality: Denies and suicidal or homicidal ideations, intent or plan Perceptions: Denies any auditory or visual hallucinations Though content/process: endorsing paranoia. lacks insight, concrete, evasive. Improving mildly Memory and concentration: AOX 3, follows commands, Judgment and insight: chronically poor IMPRESSIONS: psychosis, unspecified history of depressive disorder PTSD Methamphetamine use disorder Cannabis use disorder PLAN: -Patient is admitted under involuntary status to MHU for stabilization of psychiatric symptoms and safety. Patient has not signed adult voluntary form or medication consent and is placed in patient's chart. -Medications : change Zoloft 50mg qhs for mood/anxiety, change invega 6mg qhs for psychosis, with plan to transition onto GILLESPIE to ensure compliance -Ativan and Haldol PRN for agitation/aggression -NRT - nicotine patch -SW on board for discharge planning. Encourage patient to participate in groups to work on coping skills. Deferral is today, full hearing is 01/20
[2024-01-16] MEDS: PALIPERIDONE 6 MG TAB.ER.24 PO SCH (20:34)
[2024-01-16] MEDS: SERTRALINE 50 MG TAB PO SCH (20:34)
--- NOTE | 2024-01-17 02:02 | P.PN ---
Progress Note - Text Progress Note Date: 01/16/24 Attempted to see the patient in the MHU at 2000 on 01/15. The patient refused to be seen or be evaluated. Reviewed the patient's chart with the RN. The patient was recently diagnosed with syphilis via RPR and treponemal antibody positive by RIDDLER OPERATOR during her most recent . The patient had a demise at 30 weeks gestation on 10/10/2023. She was reportedly started on IM penicillin although unable to locate the exact dose and time of administration in the EMR. The patient's repeat Treponema pallidum antibody and RPR were positive during recent hospitalization from 12/31/2023. 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 As per the patient's RNs, the patient has denied experiencing headaches, visual disturbances, or neck pain.
[2024-01-17] MEDS: PENICILLIN G BENZATHINE 1,200,000 UNIT/2 ML SYRINGE IM STA ×2 (06:23→06:24)
[2024-01-17] MEDS: PENICILLIN G BENZATHINE 1,200,000 UNIT/2 ML SYRINGE IM ONE ×2 (09:20)
--- NOTE | 2024-01-17 10:43 | P.PN ---
Subjective Progress Note Date: 01/17/24 Patient Name: Luz Dotson Date of : 89 Patient Status: Inpatient Attending Provider: Raul Barrientos Date: 01/17/24 Initialization Date: 01/16/24 08:43 Subjective data: The patient was seen chart was reviewed and case discussed with the nursing staff Patient was curled up in her bed and made minimal eye contact Patient was facing away from this documentation writer and did not acknowledge or turn around to look at who was talking to her Patient only gave few responses when asked patient states that she is here against her wishes and that she was brought in by the police She states that she has been here too long She denies that she has any problems or issues She denies any suicidal or homicidal ideations Patient did not want to give any other details about her problems At this time patient denies any suicidal or homical ideations, intent or plan. Patient denies any auditory, visual hallucinations and denies any paranoia or delusions. Patient denies any side effects from the medications and has been compliant with meds. MENTAL STATUS EXAM: General Appearance: Patient appears to be stated age, disheveled, Behavior: Patient exhibits limited cooperation laying in bed, vague at times, Speech: Coherent, fluent, quiet tone Mood/Affect: States that she does not know how she is feeling, affect was congruent and constricted. Suicidality/Homicidality: Denies and suicidal or homicidal ideations, intent or plan Perceptions: Denies any auditory or visual hallucinations Though content/process: Denies paranoia. lacks insight, concrete, evasive. Memory and concentration: AOX 3, follows commands, Judgment and insight: poor IMPRESSIONS: psychosis, unspecified history of depressive disorder PTSD Methamphetamine use disorder Cannabis use disorder PLAN: Agree with the current treatment plan -Patient is admitted under involuntary status to MHU for stabilization of psychiatric symptoms and safety. Patient has not signed adult voluntary form or medication consent and is placed in patient's chart. -Medications : Zoloft 50mg qhs for mood/anxiety, invega 6mg qhs for psychosis, with plan to transition onto GILLESPIE to ensure compliance -Ativan and Haldol PRN for agitation/aggression -NRT - nicotine patch -SW on board for discharge planning. Encourage patient to participate in groups to work on coping skills. Deferral is today, full hearing is 01/20 Camilo Ruggiero MD Objective - Vital Signs Vital signs: Vital Signs Temp 98.2 F 01/17/24 06:00 Pulse 65 01/17/24 06:00 Resp 16 01/17/24 06:00 BP 94/55 01/17/24 06:00 Pulse Ox 99 01/17/24 06:00 FiO2
[2024-01-17 11:29] LABS: Anisocytosis Slight; Basophils # (A) 0.1 k/uL (0-0.2); Basophils % (A) 1 %; Eosinophils # (A) 0.1 k/uL (0-0.7); Eosinophils % (A) 2 %; HGB 13.5 gm/dL (11.4-16.0); Hypochromasia Slight; Lymphocytes # (A) 1.1 k/uL (1.0-4.8); Lymphocytes % (A) 15 %; MCH 27.4 pg (25.0-35.0); MCHC 30.1 g/dL (31.0-37.0); MCV 91.2 fL (80.0-100.0); Mean Platelet Volume 8.2; Monocytes # (A) 0.3 k/uL (0-1.0); Monocytes % (A) 4 %; Neutrophils % (A) 78 %; Platelet Count 300 k/uL (150-450); RBC 4.93 m/uL (3.80-5.40); RDW 16.2 % (11.5-15.5); WBC 7.7 k/uL (3.8-10.6)
[2024-01-17 11:47] LABS: ALT 15 U/L (4-34); AST 18 U/L (14-36); African American GFR (CKD) >90 (>60 ml/min/1.73 sqM); Albumin 4.2 g/dL (3.5-5.0); Alkaline Phosphatase 54 U/L (38-126); Anion Gap 10 mmol/L; Blood Urea Nitrogen 14 mg/dL (7-17); Calcium 9.1 mg/dL (8.4-10.2); Carbon Dioxide 26 mmol/L (22-30); Chloride 103 mmol/L (98-107); Glucose 116 mg/dL (74-99); Non-African American GFR(CKD) >90 (>60 ml/min/1.73 sqM); Potassium 4.1 mmol/L (3.5-5.1); Sodium 139 mmol/L (137-145); Total Bilirubin 0.4 mg/dL (0.2-1.3); Total Protein 6.8 g/dL (6.3-8.2)
[2024-01-17] MEDS: hydrOXYzine pamoate 25 MG CAP PO PRN (11:58)
--- NOTE | 2024-01-18 11:57 | P.PN ---
Subjective Progress Note Date: 01/18/24 Patient Name: Luz Dotson Date of : [birth year] Patient Status: Inpatient Attending Provider: Raul Barrientos Date: 01/18/24 Initialization Date: 01/16/24 08:43 Subjective data: the patient was much more cooperative today She stated that she is feeling better and that she slept much better She said that the medications are agreeable with her She however does admit that she feels tired She denies any suicidal or homicidal ideations She denies any thoughts 20 to herself or others MENTAL STATUS EXAM: General Appearance: Patient appears to be stated age, disheveled, Behavior: Patient exhibits limited cooperation laying in bed, vague at times, Speech: Coherent, fluent, quiet tone Mood/Affect: States that she does not know how she is feeling, affect was congruent and constricted. Suicidality/Homicidality: Denies and suicidal or homicidal ideations, intent or plan Perceptions: Denies any auditory or visual hallucinations Though content/process: Denies paranoia. lacks insight, concrete, evasive. Memory and concentration: AOX 3, follows commands, Judgment and insight: poor IMPRESSIONS: psychosis, unspecified history of depressive disorder PTSD Methamphetamine use disorder Cannabis use disorder PLAN: Agree with the current treatment plan -Patient is admitted under involuntary status to MHU for stabilization of psychiatric symptoms and safety. Patient has not signed adult voluntary form or medication consent and is placed in patient's chart. -Medications : Zoloft 50mg qhs for mood/anxiety, invega 6mg qhs for psychosis, with plan to transition onto GILLESPIE to ensure compliance -Ativan and Haldol PRN for agitation/aggression -NRT - nicotine patch - on board for discharge planning. Encourage patient to participate in groups to work on coping skills. Deferral is today, full hearing is 01/20 Camilo Ruggiero MD Active Medications Generic Name Dose Route Start Last Admin Trade Name Freq PRN Reason Stop Dose Admin Acetaminophen 650 mg 01/14/24 15:09 Acetaminophen Tab 325 Mg Tab PO Q4HR PRN Mild Pain (Scale 1 to 3) Al Hydroxide/Mg Hydroxide 30 ml 01/14/24 15:09 Mag Hydrox/Al Hydrox/Simeth 355 Ml Bottle PO Q4HR PRN GI Upset Clonidine 0.1 mg 01/14/24 21:00 01/17/24 20:06 Clonidine Hcl 0.1 Mg Tab PO 0.1 mg HS KATHIA Administration Haloperidol 5 mg 01/14/24 15:13 01/17/24 11:16 Haloperidol 5 Mg Tab PO 5 mg Q6H PRN Administration Agitation or Acute Psychosis Haloperidol Lactate 5 mg 01/14/24 15:13 Haloperidol Lactate 5 Mg/Ml 1 Ml Vial IM Q6HR PRN Agitation or Acute Psychosis Hydroxyzine Pamoate 25 mg 01/14/24 15:11 01/17/24 11:58 Hydroxyzine Pamoate 25 Mg Cap PO 25 mg QID PRN Administration Anxiety Ibuprofen 600 mg 01/14/24 15:09 01/17/24 11:14 Ibuprofen 600 Mg Tab PO 600 mg Q6HR PRN Administration Moderate Pain (Scale 4 to 6) Lorazepam 1 mg 01/14/24 15:13 Lorazepam 2 Mg/Ml Inj IM Q6HR PRN Agitation or Acute Anxiety Lorazepam 1 mg 01/14/24 15:13 01/17/24 20:17 Lorazepam 1 Mg Tab PO 1 mg Q6H PRN Administration Agitation or Acute Anxiety Magnesium Hydroxide 2,400 mg 01/14/24 15:09 Magnesium Hydroxide 2,400 Mg/30 Ml Cup PO DAILY PRN Constipation Nicotine 1 patch 01/15/24 09:00 01/18/24 08:20 Nicotine 14mg/24hr Patch TRANSDERM Not Given DAILY KATHIA Paliperidone 6 mg 01/16/24 21:00 01/17/24 20:06 Paliperidone 6 Mg Tab.Er.24 PO 6 mg HS KATHIA Administration Sertraline HCl 50 mg 01/16/24 21:00 01/17/24 20:06 Sertraline 50 Mg Tab PO 50 mg HS KATHIA Administration Objective - Vital Signs Vital signs: Vital Signs Temp 98.0 F 01/17/24 20:15 Pulse 123 H 01/18/24 08:20 Resp 18 01/17/24 20:15 BP 94/50 01/18/24 08:20 Pulse Ox 98 01/17/24 20:15 FiO2 Intake & Output 01/17/24 01/18/24 01/18/24 18:59 06:59 18:59 Weight 61.859 kg - Labs CBC & Chem 7: 01/17/24 10:39 01/17/24 10:39 Labs: Abnormal Lab Results - Last 24 Hours (Table) 01/17/24 01/17/24 Range/Units 10:39 10:39 TSH 0.176 L (0.465-4.680) mIU/L Treponema pallidum Ab Reactive A (Nonreactive)
[2024-01-18] MEDS: ACETAMINOPHEN TAB 325 MG TAB PO PRN (16:00)
[2024-01-18 18:38] LABS: Amorphous Sediment,Urine Rare /hpf; Appearance,Urine Cloudy (Clear); Bacteria,Urine Rare /hpf; Bilirubin,Urine Negative (Negative); Blood,Urine Negative (Negative); Color,Urine Light Yellow; Glucose,Urine (UA) Negative (Negative); Ketones,Urine Negative (Negative); Leukocyte Esterase,Urine Large (Negative); Mucus,Urine Rare /hpf; Nitrite,Urine Negative (Negative); PH, Urine 6.5 (5.0-8.0); Protein,Urine Trace (Negative); RBC,Urine 7 /hpf (0-5); Specific Gravity,Urine 1.023 (1.001-1.035); Squamous Epithelial Cell,Urine 18 /hpf (0-4); Urobilinogen,Urine <2.0 mg/dL (<2.0); WBC,Urine 27 /hpf (0-5)
[2024-01-19 08:42] LABS: Urine Alcohol Negative (Negative); Urine Barbiturate Negative (Negative); Urine Cocaine Negative (Negative); Urine Methadone Negative (Negative); Urine Opiates Negative (Negative); Urine Phencyclidine Negative (Negative)
--- NOTE | 2024-01-19 10:31 | P.PN ---
Progress Note - Text Progress Note Date: 01/19/24 Interval History: Patient was seen in her room, and was directable and agreeable to speak with loan underwriter at the bedside. Patient states that she is tired today, and states that she does not feel the medications are working for her. She claims that she feels everyone is out to kill her, especially the nurses. When asked how they are trying to kill her, she stated "all of the above". Patient is secluding to her room, and not going to any groups. She is somewhat concrete. At this time patient denies any suicidal or homical ideations, intent or plan. Patient denies any auditory, visual hallucinations and is endorsing paranoia and delusions. Patient denies any side effects from the medications and has been compliant with meds. MENTAL STATUS EXAM: General Appearance: Patient appears to be stated age, is less disheveled, dressed in hospital gown,poor hygiene and grooming. Disheveled Behavior: Patient is somewhat cooperative today, laying in bed, vague at times Speech: Coherent, fluent, quiet tone Mood/Affect: States that she does not know how she is feeling, affect was congruent and constricted. Suicidality/Homicidality: Denies and suicidal or homicidal ideations, intent or plan Perceptions: Denies any auditory or visual hallucinations Though content/process: endorsing paranoia. lacks insight, concrete, evasive. Memory and concentration: AOX 3, follows commands, Judgment and insight: chronically poor IMPRESSIONS: psychosis, unspecified history of depressive disorder PTSD Methamphetamine use disorder Cannabis use disorder PLAN: -Patient is admitted under involuntary status to MHU for stabilization of psychiatric symptoms and safety. Patient has not signed adult voluntary form or medication consent and is placed in patient's chart. -Medications : Zoloft 50mg qhs for mood/anxiety, Prolixin 2.5mg bid for psychosis, with plan to transition onto GILLESPIE, d/c invega due to ineffectiveness, add trazodone 50mg qhs prn for sleep -Ativan and Haldol PRN for agitation/aggression -NRT - nicotine patch -SW on board for discharge planning. Encourage patient to participate in groups to work on coping skills, full hearing is 01/20
--- NOTE | 2024-01-20 11:35 | P.PN ---
Progress Note - Text Progress Note Date: 01/20/24 Interval History: Patient was seen in the hallway and was directable and agreeable to speak with service writer in the office.. Patient states that she is feeling anxious and depressed today. She states she slept well last night, and her appetite is fair. Mailmaster spoke with patient about rehab, patient agreeable to call the access line to get screened. She is somewhat concrete. Patient complaining of pain in her hip, requesting narcotics for pain. Mailmaster offered tylenol and motrin. At this time patient denies any suicidal or homicidal ideations, intent or plan. Patient denies any auditory, visual hallucinations and is endorsing paranoia and delusions. She states the world is out to get her. Patient denies any side effects from the medications and has been compliant with meds. MENTAL STATUS EXAM: General Appearance: Patient appears to be stated age, is less disheveled, dressed in hospital gown,poor hygiene and grooming. Disheveled Behavior: Patient is somewhat cooperative today, sitting in the chair without agitated behavior Speech: Coherent, fluent, quiet tone Mood/Affect: States that she does not know how she is feeling, affect was congruent and constricted. Suicidality/Homicidality: Denies and suicidal or homicidal ideations, intent or plan Perceptions: Denies any auditory or visual hallucinations Though content/process: endorsing paranoia. lacks insight, concrete, evasive. Memory and concentration: AOX 3, follows commands, Judgment and insight: chronically poor IMPRESSIONS: psychosis, unspecified history of depressive disorder PTSD Methamphetamine use disorder Cannabis use disorder PLAN: -Patient is admitted under involuntary status to MHU for stabilization of psychiatric symptoms and safety. Patient has not signed adult voluntary form or medication consent and is placed in patient's chart. -Medications : increase Zoloft 100mg qhs for mood/anxiety, increase Prolixin 3mg bid for psychosis, with plan to transition onto GILLESPIE, trazodone 50mg qhs prn for sleep -Ativan and Haldol PRN for agitation/aggression -NRT - nicotine patch -SW on board for discharge planning. Encourage patient to participate in groups to work on coping skills, Patient deferred. Patient called [facility] to get screened yesterday. Likely discharge directly to rehab, due to her excessive drug use.
[2024-01-20 12:10] VITALS: BMI 24.5
[2024-01-20] MEDS: SERTRALINE 100 MG TAB PO SCH (20:58)
--- NOTE | 2024-01-21 13:00 | P.PN ---
Progress Note - Text Progress Note Date: 01/21/24 Interval History: Patient was seen in her room, resting, and was directable and agreeable to speak with editorial writer at the bedside. Patient states that the medications are making her feel low energy and tired. Pantograph Operator spoke with the patient about changing the prolixin to night, and d/c the catapres, and replace it with Remeron. Patient agreeable. Patient states that she thinks the world hates her, because she hates herself, because she did drugs while she was , which caused her to give to a still born baby. She presents as very remorseful and tearful, and motivated to go to rehab upon discharge. She did state she will be calling [place] access line to see if they can get her in sooner than [facility]. At this time patient denies any suicidal or homicidal ideations, intent or plan. Patient denies any auditory, visual hallucinations and is endorsing paranoia and delusions. She states the world is out to get her. Patient denies any side effects from the medications and has been compliant with meds. MENTAL STATUS EXAM: General Appearance: Patient appears to be stated age, is less disheveled, dressed in hospital gown,poor hygiene and grooming. Disheveled Behavior: Patient is somewhat cooperative today, sitting on the bed, without agitated behavior. Remorseful, tearful Speech: Coherent, fluent, quiet tone Mood/Affect: States that is feeling tired, affect was congruent and constricted. mildly improving Suicidality/Homicidality: Denies and suicidal or homicidal ideations, intent or plan Perceptions: Denies any auditory or visual hallucinations Though content/process: mildly improving Memory and concentration: AOX 3, mildly improving Judgment and insight: chronically poor, mildly improving with medications IMPRESSIONS: psychosis, unspecified history of depressive disorder PTSD Methamphetamine use disorder Cannabis use disorder PLAN: -Patient is admitted under involuntary status to MHU for stabilization of psychiatric symptoms and safety. Patient has not signed adult voluntary form or medication consent and is placed in patient's chart. -Medications : d/c catapres, add remeron 15mg qhs, Zoloft 100mg qhs for mood/anxiety, change Prolixin 6mg qhs for psychosis, with plan to transition onto GILLESPIE, trazodone 50mg qhs prn for sleep, add cogentin 0.5mg qhs for EPS symptoms increase visteral 50mg q8 prn for anxiety -Ativan and Haldol PRN for agitation/aggression -NRT - nicotine patch -SW on board for discharge planning. Encourage patient to participate in groups to work on coping skills, Patient deferred. Patient called [facility] to get screened Friday, and will call [place] access line today. Likely discharge directly to rehab, due to her excessive drug use
[2024-01-21] MEDS: hydrOXYzine pamoate 25 MG CAP PO PRN (14:31)
[2024-01-21] MEDS: BENZTROPINE MESYLATE 0.5 MG TAB PO SCH (21:43)
[2024-01-21] MEDS: MIRTAZAPINE 15 MG TAB PO SCH (21:43)
--- NOTE | 2024-01-22 09:49 | P.PN ---
Progress Note - Text Progress Note Date: 01/22/24 Interval History: Patient was seen in her room, resting, and was directable and agreeable to speak with junior copywriter at the bedside. Patient states that she slept well last night. She is going to some groups. She did find out that she was denied at [facility], so she called access line for [place]. Will await their decision. Patient states her appetite is good, and she feels the medications are working for her. At this time patient denies any suicidal or homicidal ideations, intent or plan. Patient denies any auditory, visual hallucinations and is denying paranoia and delusions. Patient denies any side effects from the medications and has been compliant with meds. MENTAL STATUS EXAM: General Appearance: Patient appears to be stated age, is less disheveled, dressed in her own clothes, improved hygiene Behavior: Patient is somewhat cooperative today, sitting on the bed, without a gitated behavior. Speech: Coherent, fluent, quiet tone improving Mood/Affect: States that is feeling tired, affect was congruent and constricted. mildly improving Suicidality/Homicidality: Denies and suicidal or homicidal ideations, intent or plan Perceptions: Denies any auditory or visual hallucinations Though content/process: mildly improving Memory and concentration: AOX 3, mildly improving Judgment and insight: chronically poor, mildly improving with medications IMPRESSIONS: psychosis, unspecified history of depressive disorder PTSD Methamphetamine use disorder Cannabis use disorder PLAN: -Patient is admitted under involuntary status to MHU for stabilization of psychiatric symptoms and safety. Patient has not signed adult voluntary form or medication consent and is placed in patient's chart. -Medications : remeron 15mg qhs, Zoloft 100mg qhs for mood/anxiety, Prolixin po 6mg qhs for psychosis, trazodone 50mg qhs prn for sleep, cogentin 0.5mg qhs for EPS symptoms, visteral 50mg q8 prn for anxiety -Ativan and Haldol PRN for agitation/aggression -NRT - nicotine patch -SW on board for discharge planning. Encourage patient to participate in groups to work on coping skills, Patient deferred. Patient denied at [facility], called [place] access line. Likely discharge directly to rehab, due to her excessive drug use
[2024-01-23] MEDS ORDERED: BENZTROPINE MESYLATE 0.5 MG TAB PO PRN (11:27)
--- NOTE | 2024-01-23 12:02 | P.PN ---
Progress Note - Text Progress Note Date: 01/23/24 Interval History: Patient was seen in the hallway, and was directable and agreeable to speak with writer editor in the office. Patient states that she is feeling tired, and that she feels the medications are making her tired, and that she feels she is sleeping all day. Patient states she was anxious about her mom coming to see her, because he mom opened a credit card in her name, and she thinks that her mom is going to tell her that she maxed the card out when she was on drugs. Director Global Sales spoke to the patient about her drug abuse, and how it can counter act the medications, and the more she uses, the longer it takes to recover. Patient still is interested in going to rehab, and will wait until she is approved to go, before she is discharged. Patient states her appetite is good, and she feels the medications are working for her. At this time patient denies any suicidal or homicidal ideations, intent or plan. Patient denies any auditory, visual hallucinations and is denying paranoia and delusions. Patient denies any side effects from the medications and has been compliant with meds. MENTAL STATUS EXAM: General Appearance: Patient appears to be stated age, is less disheveled, dressed in her own clothes, improved hygiene Behavior: Patient is cooperative today, sitting on the chair, without agitated behavior. Speech: Coherent, fluent, quiet tone improving Mood/Affect: States that is feeling tired, affect was congruent and constricted. mildly improving Suicidality/Homicidality: Denies and suicidal or homicidal ideations, intent or plan Perceptions: Denies any auditory or visual hallucinations Though content/process: mildly improving Memory and concentration: AOX 3, mildly improving Judgment and insight: chronically poor, mildly improving with medications IMPRESSIONS: psychosis, unspecified history of depressive disorder PTSD Methamphetamine use disorder Cannabis use disorder PLAN: -Patient is admitted under involuntary status to MHU for stabilization of psychiatric symptoms and safety. Patient has not signed adult voluntary form or medication consent and is placed in patient's chart. -Medications : decrease remeron 7.5 mg qhs, Zoloft 100mg qhs for mood/anxiety, decrease Prolixin po 5mg qhs for psychosis due to oversedation, trazodone 50mg qhs prn for sleep, change cogentin 0.5mg qhs PRN for EPS symptoms, visteral 50mg q8 prn for anxiety -Ativan and Haldol PRN for agitation/aggression -NRT - nicotine patch -SW on board for discharge planning. Encourage patient to participate in groups to work on coping skills, Patient deferred. Patient denied at [facility], called [place] access line. Likely discharge directly to rehab next week once she is approved
[2024-01-23] MEDS: MIRTAZAPINE 15 MG TAB PO SCH (20:35)
--- NOTE | 2024-01-24 11:25 | P.PN ---
Subjective Progress Note Date: 01/24/24 Principal diagnosis: IMPRESSIONS: psychosis, stimulant related history of depressive disorder PTSD Methamphetamine use disorder Cannabis use disorder Active Medications Generic Name Dose Route Start Last Admin Trade Name Martinq PRN Reason Stop Dose Admin Acetaminophen 650 mg 01/14/24 15:09 01/23/24 14:29 Acetaminophen Tab 325 Mg Tab PO 650 mg Q4HR PRN Administration Mild Pain (Scale 1 to 3) Al Hydroxide/Mg Hydroxide 30 ml 01/14/24 15:09 Mag Hydrox/Al Hydrox/Simeth 355 Ml Bottle PO Q4HR PRN GI Upset Benztropine Mesylate 0.5 mg 01/23/24 11:27 Benztropine Mesylate 0.5 Mg Tab PO HS PRN eps reaction Fluphenazine HCl 5 mg 01/23/24 21:00 01/23/24 20:35 Fluphenazine 5 Mg Tab PO 5 mg HS KATHIA Administration Haloperidol 5 mg 01/14/24 15:13 01/23/24 15:46 Haloperidol 5 Mg Tab PO 5 mg Q6H PRN Administration Agitation or Acute Psychosis Haloperidol Lactate 5 mg 01/14/24 15:13 Haloperidol Lactate 5 Mg/Ml 1 Ml Vial IM Q6HR PRN Agitation or Acute Psychosis Hydroxyzine Pamoate 50 mg 01/21/24 11:48 01/23/24 13:06 Hydroxyzine Pamoate 25 Mg Cap PO 50 mg Q8HR PRN Administration Anxiety Ibuprofen 600 mg 01/14/24 15:09 01/23/24 18:49 Ibuprofen 600 Mg Tab PO 600 mg Q6HR PRN Administration Moderate Pain (Scale 4 to 6) Lorazepam 1 mg 01/14/24 15:13 Lorazepam 2 Mg/Ml Inj IM Q6HR PRN Agitation or Acute Anxiety Lorazepam 1 mg 01/14/24 15:13 01/23/24 19:20 Lorazepam 1 Mg Tab PO 1 mg Q6H PRN Administration Agitation or Acute Anxiety Magnesium Hydroxide 2,400 mg 01/14/24 15:09 Magnesium Hydroxide 2,400 Mg/30 Ml Cup PO DAILY PRN Constipation Mirtazapine 7.5 mg 01/23/24 21:00 01/23/24 20:35 Mirtazapine 15 Mg Tab PO 7.5 mg HS KATHIA Administration Nicotine 1 patch 01/15/24 09:00 01/23/24 14:13 Nicotine 14mg/24hr Patch TRANSDERM 1 patch DAILY KATHIA Administration Sertraline HCl 100 mg 01/20/24 21:00 01/23/24 20:35 Sertraline 100 Mg Tab PO 100 mg HS KATHIA Administration Trazodone HCl 50 mg 01/19/24 10:22 Trazodone Hcl 50 Mg Tab PO HS PRN Insomnia Patient Name: Luz Dotson Date of : 89 Patient Status: Inpatient Attending Provider: Raul Barrientos Date: 01/24/24 Initialization Date: 01/23/24 08:46 Interval History: Patient was seen in her bed where she was resting comfortably in was cooperative during this interview Patient reports that the psychosis seems to have resolved and that she is not expressing any auditory or visual hallucinations She says that her depression also seems to be getting better She says that she is waiting for her placement in the rehab substance use problems She denies that she is having any issues or concerns with her current medications . At this time patient denies any suicidal or homicidal ideations, intent or plan. Patient denies any auditory, visual hallucinations and is denying paranoia and delusions. Patient denies any side effects from the medications and has been compliant with meds. MENTAL STATUS EXAM: General Appearance: Patient appears to be stated age, is less disheveled, dressed in her own clothes, improved hygiene Behavior: Patient is cooperative , laying in bed, without agitated behavior. Speech: Coherent, fluent, quiet tone improving Mood/Affect: States that is feeling tired, affect was congruent and constricted. mildly improving Suicidality/Homicidality: Denies and suicidal or homicidal ideations, intent or plan Perceptions: Denies any auditory or visual hallucinations Though content/process: mildly improving Memory and concentration: AOX 3, mildly improving Judgment and insight: chronically poor, mildly improving with medications IMPRESSIONS: psychosis, unspecified history of depressive disorder PTSD Methamphetamine use disorder Cannabis use disorder PLAN: agree with the current treatment plan -Patient is admitted under involuntary status to [facility] for stabilization of psychiatric symptoms and safety. Patient has not signed adult voluntary form or medication consent and is placed in patient's chart. -Medications : remeron 7.5 mg qhs, Zoloft 100mg qhs for mood/anxiety, Prolixin po 5mg qhs for psychosis due to oversedation, trazodone 50mg qhs prn for sleep, cogentin 0.5mg qhs PRN for EPS symptoms, visteral 50mg q8 prn for anxiety -Ativan and Haldol PRN for agitation/aggression -NRT - nicotine patch - on board for discharge planning. Encourage patient to participate in groups to work on coping skills, Patient denied at [facility], called [place] access line. Likely discharge directly to rehab next week once she is approved Camilo Ruggiero M.D. Objective - Vital Signs Vital signs: Vital Signs Temp 97.8 F 01/24/24 06:00 Pulse 75 01/24/24 06:00 Resp 18 01/24/24 06:00 BP 75/68 01/24/24 06:00 Pulse Ox 98 01/24/24 06:00 FiO2 - Labs CBC & Chem 7: 01/17/24 10:39 01/17/24 10:39
[2024-01-24] MEDS: traZODone HCL 50 MG TAB PO PRN (20:11)
--- NOTE | 2024-01-25 10:47 | P.PN ---
Subjective Progress Note Date: 01/25/24 Principal diagnosis: IMPRESSIONS: psychosis, stimulant related history of depressive disorder PTSD Methamphetamine use disorder Cannabis use disorder Active Medications Generic Name Dose Route Start Last Admin Trade Name Martinq PRN Reason Stop Dose Admin Acetaminophen 650 mg 01/14/24 15:09 01/23/24 14:29 Acetaminophen Tab 325 Mg Tab PO 650 mg Q4HR PRN Administration Mild Pain (Scale 1 to 3) Al Hydroxide/Mg Hydroxide 30 ml 01/14/24 15:09 Mag Hydrox/Al Hydrox/Simeth 355 Ml Bottle PO Q4HR PRN GI Upset Benztropine Mesylate 0.5 mg 01/23/24 11:27 Benztropine Mesylate 0.5 Mg Tab PO HS PRN eps reaction Fluphenazine HCl 5 mg 01/23/24 21:00 01/23/24 20:35 Fluphenazine 5 Mg Tab PO 5 mg HS KATHIA Administration Haloperidol 5 mg 01/14/24 15:13 01/23/24 15:46 Haloperidol 5 Mg Tab PO 5 mg Q6H PRN Administration Agitation or Acute Psychosis Haloperidol Lactate 5 mg 01/14/24 15:13 Haloperidol Lactate 5 Mg/Ml 1 Ml Vial IM Q6HR PRN Agitation or Acute Psychosis Hydroxyzine Pamoate 50 mg 01/21/24 11:48 01/23/24 13:06 Hydroxyzine Pamoate 25 Mg Cap PO 50 mg Q8HR PRN Administration Anxiety Ibuprofen 600 mg 01/14/24 15:09 01/23/24 18:49 Ibuprofen 600 Mg Tab PO 600 mg Q6HR PRN Administration Moderate Pain (Scale 4 to 6) Lorazepam 1 mg 01/14/24 15:13 Lorazepam 2 Mg/Ml Inj IM Q6HR PRN Agitation or Acute Anxiety Lorazepam 1 mg 01/14/24 15:13 01/23/24 19:20 Lorazepam 1 Mg Tab PO 1 mg Q6H PRN Administration Agitation or Acute Anxiety Magnesium Hydroxide 2,400 mg 01/14/24 15:09 Magnesium Hydroxide 2,400 Mg/30 Ml Cup PO DAILY PRN Constipation Mirtazapine 7.5 mg 01/23/24 21:00 01/23/24 20:35 Mirtazapine 15 Mg Tab PO 7.5 mg HS KATHIA Administration Nicotine 1 patch 01/15/24 09:00 01/23/24 14:13 Nicotine 14mg/24hr Patch TRANSDERM 1 patch DAILY KATHIA Administration Sertraline HCl 100 mg 01/20/24 21:00 01/23/24 20:35 Sertraline 100 Mg Tab PO 100 mg HS KATHIA Administration Trazodone HCl 50 mg 01/19/24 10:22 Trazodone Hcl 50 Mg Tab PO HS PRN Insomnia Patient Name: Luz Dotson Date of : [birth year] Patient Status: Inpatient Attending Provider: Raul Barrientos Date: 01/25/24 Initialization Date: 01/23/24 08:46 Active Medications Acetaminophen (Acetaminophen Tab 325 Mg Tab) 650 mg PO Q4HR PRN PRN Reason: Mild Pain (Scale 1 to 3) Last Admin: 01/23/24 14:29 Dose: 650 mg Al Hydroxide/Mg Hydroxide (Mag Hydrox/Al Hydrox/Simeth 355 Ml Bottle) 30 ml PO Q4HR PRN PRN Reason: GI Upset Benztropine Mesylate (Benztropine Mesylate 0.5 Mg Tab) 0.5 mg PO HS PRN PRN Reason: eps reaction Fluphenazine HCl (Fluphenazine 5 Mg Tab) 5 mg PO HS KATHIA Last Admin: 01/24/24 20:11 Dose: 5 mg Haloperidol (Haloperidol 5 Mg Tab) 5 mg PO Q6H PRN PRN Reason: Agitation or Acute Psychosis Last Admin: 01/24/24 12:31 Dose: 5 mg Haloperidol Lactate (Haloperidol Lactate 5 Mg/Ml 1 Ml Vial) 5 mg IM Q6HR PRN PRN Reason: Agitation or Acute Psychosis Hydroxyzine Pamoate (Hydroxyzine Pamoate 25 Mg Cap) 50 mg PO Q8HR PRN PRN Reason: Anxiety Last Admin: 01/24/24 14:21 Dose: 50 mg Ibuprofen (Ibuprofen 600 Mg Tab) 600 mg PO Q6HR PRN PRN Reason: Moderate Pain (Scale 4 to 6) Last Admin: 01/24/24 12:30 Dose: 600 mg Lorazepam (Lorazepam 2 Mg/Ml Inj) 1 mg IM Q6HR PRN PRN Reason: Agitation or Acute Anxiety Lorazepam (Lorazepam 1 Mg Tab) 1 mg PO Q6H PRN PRN Reason: Agitation or Acute Anxiety Last Admin: 01/24/24 14:09 Dose: 1 mg Magnesium Hydroxide (Magnesium Hydroxide 2,400 Mg/30 Ml Cup) 2,400 mg PO DAILY PRN PRN Reason: Constipation Mirtazapine (Mirtazapine 15 Mg Tab) 7.5 mg PO HS [facility] Last Admin: 01/24/24 20:12 Dose: 7.5 mg Nicotine (Nicotine 14mg/24hr Patch) 1 patch TRANSDERM DAILY [facility] Last Admin: 01/24/24 12:33 Dose: 1 patch Sertraline HCl (Sertraline 100 Mg Tab) 100 mg PO HS [facility] Last Admin: 01/24/24 20:11 Dose: 100 mg Trazodone HCl (Trazodone Hcl 50 Mg Tab) 50 mg PO HS PRN PRN Reason: Insomnia Last Admin: 01/24/24 20:11 Dose: 50 mg Interval History: the patient was seen chart was reviewed and case discussed with nursing staff Patient was seen in her room around 9:30 where she was still laying in bed When the lights were turned on patient became very irritated and stated that now she is getting a headache immediately She remains very superficial interaction Patient remains superficial and withdrawn and not interested in this further discussion When asked about her future plans states that she is waiting for her placement and that she is not having any other issues or problems did not seem to be too interested in any having this conversation any further and covered her face even though he had turned the light off MENTAL STATUS EXAM: General Appearance: Patient appears to be stated age, is less disheveled, dressed in her own clothes, improved hygiene Behavior: Patient is cooperative , laying in bed, appears to be easily agitated Speech: Coherent, fluent, quiet tone improving Mood/Affect: States that is feeling tired, affect was congruent and constricted. Suicidality/Homicidality: Denies and suicidal or homicidal ideations, intent or plan Perceptions: Denies any auditory or visual hallucinations Though content/process: remained somewhat superficial and standoffish Abuse to more related to not wanting to wake up Memory and concentration: AOX 3, mildly improving Judgment and insight: chronically poor, mildly improving with medications IMPRESSIONS: psychosis, unspecified history of depressive disorder PTSD Methamphetamine use disorder Cannabis use disorder PLAN: agree with the current treatment plan -Patient is admitted under involuntary status to [facility] for stabilization of psychiatric symptoms and safety. Patient has not signed adult voluntary form or medication consent and is placed in patient's chart. -Medications : remeron 7.5 mg qhs, Zoloft 100mg qhs for mood/anxiety, Prolixin po 5mg qhs for psychosis due to oversedation, trazodone 50mg qhs prn for sleep, cogentin 0.5mg qhs PRN for EPS symptoms, visteral 50mg q8 prn for anxiety -Ativan and Haldol PRN for agitation/aggression -NRT - nicotine patch -SW on board for discharge planning. Encourage patient to participate in groups to work on coping skills, Patient denied at [facility], called [place] access line. Likely discharge directly to rehab next week once she is approved Camilo Ruggiero M.D. Objective - Vital Signs Vital signs: Vital Signs Temp 97.6 F 01/25/24 06:50 Pulse 66 01/25/24 06:50 Resp 14 01/25/24 06:50 BP 85/42 01/25/24 06:50 Pulse Ox 98 01/25/24 06:50 FiO2 Intake & Output 01/24/24 01/25/24 01/25/24 18:59 06:59 18:59 Weight 68.538 kg - Labs CBC & Chem 7: 01/17/24 10:39 01/17/24 10:39
[2024-01-26 07:14] VITALS: PULSE 60
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
[2024-01-27] MEDS: MAG HYDROX/AL HYDROX/SIMETH 355 ML BOTTLE PO PRN (01:33)
[2024-01-27 06:58] VITALS: BP 81/50; RESP 18; TEMP 97.4
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
== END 2024-01-27 09:35 | disposition home or self-care (01) | DRG 776 ==
LOC: EC 18:36 → MERGE 18:36 → 3MHU 01-14 14:43
PROVIDERS: ADMIT Psychiatry & Neurology Psychiatry; ATTEND Psychiatry & Neurology Psychiatry
DX: F15.159 Other stimulant abuse with stimulant-induced psychotic disorder, unspecified (principal); F12.10 Cannabis abuse, uncomplicated; F43.10 Post-traumatic stress disorder, unspecified; F32.9 Major depressive disorder, single episode, unspecified; G47.00 Insomnia, unspecified; K59.00 Constipation, unspecified; F13.10 Sedative, hypnotic or anxiolytic abuse, uncomplicated; A53.9 Syphilis, unspecified; T43.592A Poisoning by other antipsychotics and neuroleptics, intentional self-harm, initial encounter; Z28.21 Immunization not carried out because of patient refusal; Z28.310 Unvaccinated for COVID-19; Z53.29 Procedure and treatment not carried out because of patient's decision for other reasons; Z79.899 Other long term (current) drug therapy
CPT/HCPCS: 80053; 80306; 81001; 81025; 82075; 83036; 84439; 84443; 85025; 86592; 86780; 87635; 96372; 99285

== ENCOUNTER 2024-03-14 02:44 | Inpatient (IN) | payer MEDICAID, OTHER ==
--- NOTE | 2024-03-14 03:01 | ED ---
General Adult HPI - General Source: patient, RN notes reviewed, old records reviewed Mode of arrival: ambulatory Limitations: no limitations <Isidro Layton - Last Filed: 03/14/24 02:58> <Lars Jefferson - Last Filed: 03/14/24 12:52> - General Chief complaint: Psychiatric Symptoms Stated complaint: mental health Time Seen by Provider: 03/14/24 02:49 - History of Present Illness Initial comments: 28 female presents at the front door of the emergency department completely naked. Patient does have mental health history. She states that she "did all the drugs". Patient is focused on buddhist. She is delusional. Mostly nonsensical. (Isidro Layton) - Related Data Home Medications Medication Instructions Recorded Confirmed Melatonin 10 mg PO HS 01/13/24 01/13/24 hydrOXYzine pamoate [Vistaril] 25 mg PO QID PRN 01/13/24 01/13/24 Previous Rx's Medication Instructions Recorded Melatonin 10 mg PO HS #0 tab 12/31/23 hydrOXYzine pamoate [Vistaril] 50 mg PO DAILY PRN 14 Days #28 cap 12/31/23 Benztropine Mesylate [Cogentin] 0.5 mg PO HS PRN #30 tab 01/26/24 Nicotine 14Mg/24Hr Patch [Habitrol] 1 patch TRANSDERM DAILY patch 01/26/24 Sertraline [Zoloft] 100 mg PO HS #30 tab 01/26/24 fluPHENAZine [Prolixin] 5 mg PO HS #30 tab 01/26/24 Allergies Allergy/AdvReac Type Severity Reaction Status Date / Time No Known Allergies Allergy Verified 01/14/24 12:36 Review of Systems ROS Other: All systems not noted in ROS Statement are negative. <Isidro Layton - Last Filed: 03/14/24 02:58> ROS Other: All systems not noted in ROS Statement are negative. <Lars Jefferson - Last Filed: 03/14/24 12:52> ROS Statement: Those systems with pertinent positive or pertinent negative responses have been documented in the HPI. Past Medical History Past Medical History: No Reported History Additional Past Medical History / Comment(s): Obstetric history: 2 previous normal vaginal deliveries and 1 miscarriage at 7 weeks gestation. This is her fourth . She had care with me she waited to get her blood work done until a few weeks ago. Blood type is O+, antibodies negative, rubella immune, RPR and treponemal ab positive, hepatitis B-. Due to the positive syphilis status she was started on IM penicillin and a consult with [facility] was scheduled. History of Any Multi-Drug Resistant Organisms: None Reported Additional Past Surgical History / Comment(s): left hip surgery as an infant Past Anesthesia/Blood Transfusion Reactions: No Reported Reaction Past Psychological History: Anxiety, Depression, PTSD Smoking Status: Current every day smoker Past Alcohol Use History: None Reported Past Drug Use History: Marijuana, Methamphetamine - Past Family History Mother Family Medical History: Cancer Additional Family Medical History / Comment(s): grandmother breast CA Father Family Medical History: Myocardial Infarction ([place]) Additional Family Medical History / Comment(s): grandfather had HI <Isidro Layton - Last Filed: 03/14/24 02:58> General Exam Limitations: no limitations General appearance: appears intoxicated, anxious Head exam: Present: atraumatic, normocephalic Eye exam: Present: normal appearance, PERRL ENT exam: Present: normal exam Neck exam: Present: normal inspection. Absent: tenderness, meningismus Respiratory exam: Present: normal lung sounds bilaterally. Absent: respiratory distress Cardiovascular Exam: Present: regular rate, normal rhythm Neurological exam: Present: alert. Absent: motor sensory deficit Psychiatric exam: Present: agitated (Delusional, paranoid, acutely psychotic) Skin exam: Present: warm, dry, intact <Isidro Layton - Last Filed: 03/14/24 02:58> Course <Lars Jefferson - Last Filed: 03/14/24 12:52> Vital Signs 03/14/24 03/14/24 02:52 06:42 Temperature 98 F Pulse Rate 102 H 79 Respiratory 20 18 Rate Blood Pressure 131/86 109/70 O2 Sat by Pulse 98 99 Oximetry - Reevaluation(s) Reevaluation #1: 03/14/24 09:17 Patient again verbally aggressive at approximately 9:16 AM. She was restrained and given sedation medications. (Lars Jefferson) Procedures - Restraint - Face to Face Restraint Occurrence 1 Patient's Immediate Situation: Endangers self safety, Endangers others' safety, Endangers staff safety, Violent behavior Patient's Reaction to the Intervention: Angry Patient's Medical & Behavioral Condition: Awake, Agitated Face to Face Eval of Restraint Date: 03/14/24 Face to Face Eval of Restraint Time: 09:29 <Lars Jefferson - Last Filed: 03/14/24 12:52> Medical Decision Making <Isidro Layton Shola - Last Filed: 03/14/24 02:58> - Lab Data Result diagrams: 03/14/24 10:20 03/14/24 10:20 <Lars Jefferson - Last Filed: 03/14/24 12:52> - Medical Decision Making Was pt. sent in by a medical professional or institution (, PA, VEHICLE CARE SPECIALIST, urgent care, hospital, or halfway...) When possible be specific @ -No Did you speak to anyone other than the patient for history (EMS, parent, family, police, friend...)? What history was obtained from this source @ -No Did you review nursing and triage notes (agree or disagree)? Why? @ -I reviewed and agree with nursing and triage notes Were old charts reviewed (outside hosp., previous admission, EMS record, old EKG, old radiological studies, urgent care reports/EKG's, halfway records)? Report findings @ -No old charts were reviewed Differential Mental Health Depression, anxiety, bipolar, psychosis, schizophrenia, borderline personality, situational depression, adjustment disorder, behavioral disorder, brain tumor, malingering, substance abuse, encephalopathy, medication reaction, dementia, hypothyroidism, degenerative neurologic disorder, lupus.... This is not meant to be all-inclusive list EKG interpreted by me (3pts min.). @ -As above X-rays interpreted by me (1pt min.). @ -None done CT interpreted by me (1pt min.). @ -None done U/S interpreted by me (1pt. min.). @ -None done What testing was considered but not performed or refused? (CT, X-rays, U/S, labs)? Why? @ -None What meds were considered but not given or refused? Why? @ -None Did you discuss the management of the patient with other professionals (professionals i.e. , PA, VEHICLE CARE SPECIALIST, lab, RT, psych nurse, psychiatric social worker supervisor, action installer, teacher, optics technical officer, pillowcase cleaner)? Give summary @ -No Was smoking cessation discussed for >3mins.? @ -No Was critical care preformed (if so, how long)? @ -No Were there social determinants of health that impacted care today? How? (Homelessness, low income, unemployed, alcoholism, drug addiction, transportation, low edu. Level, literacy, decrease access to med. care, nursing home, rehab)? @ -No Was there de-escalation of care discussed even if they declined (Discuss DNR or withdrawal of care, Hospice)? DNR status @ -No What co-morbidities impacted this encounter? (DM, HTN, Smoking, COPD, CAD, Cancer, CVA, ARF, Chemo, Hep., AIDS, mental health diagnosis, sleep apnea, morbid obesity)? @ -None Was patient admitted / discharged? Hospital course, mention meds given and route, prescriptions, significant lab abnormalities, going to OR and other pertinent info. @ -Patient medically cleared awaiting EPS evaluation (Isidro Layton) Patient care signed out to me by previous shift physician, Dr. Layton. Patient presents to the emergency department and acute psychosis. Patient pending EPS evaluation. Patient eval by EPS. EPS recommends inpatient psychiatric admission. Clinical certification completed and in chart. Diagnosis/symptom? @ -Acute psychosis Acute, or Chronic, or Acute on Chronic? @ -Acute Uncomplicated (without systemic symptoms) or Complicated (systemic symptoms)? @ -Complicated Side effects of treatment? @ -None Exacerbation, Progression, or Severe Exacerbation] @ -No Poses a threat to life or bodily function? @ -Yes (Lars Jefferson) - Lab Data Lab Results 03/14/24 03/14/24 03/14/24 Range/Units 10:20 10:20 10:20 WBC 8.1 (3.8-10.6) k/uL RBC 4.52 (3.80-5.40) m/uL Hgb 13.2 (11.4-16.0) gm/dL Hct 41.2 (34.0-46.0) % MCV 91.0 (80.0-100.0) fL MCH 29.1 (25.0-35.0) pg MCHC 32.0 (31.0-37.0) g/dL RDW 14.2 (11.5-15.5) % Plt Count 257 (150-450) k/uL MPV 8.6 Neutrophils % 65 % Lymphocytes % 24 % Monocytes % 6 % Eosinophils % 2 % Basophils % 1 % Neutrophils # 5.3 (1.3-7.7) k/uL Lymphocytes # 1.9 (1.0-4.8) k/uL Monocytes # 0.5 (0-1.0) k/uL Eosinophils # 0.2 (0-0.7) k/uL Basophils # 0.1 (0-0.2) k/uL Sodium 138 (137-145) mmol/L Potassium 3.0 L (3.5-5.1) mmol/L Chloride 107 (98-107) mmol/L Carbon Dioxide 24 (22-30) mmol/L Anion Gap 7 mmol/L BUN 9 (7-17) mg/dL Creatinine 0.55 (0.52-1.04) mg/dL Est GFR (CKD-EPI)AfAm >90 (>60 ml/min/1.73 sqM) Est GFR (CKD-EPI)NonAf >90 (>60 ml/min/1.73 sqM) Glucose 93 (74-99) mg/dL Calcium 8.9 (8.4-10.2) mg/dL HCG, Quant <2.4 mIU/mL Urine Opiates Screen Not Detected (NotDetected) Ur Oxycodone Screen Not Detected (NotDetected) Urine Methadone Screen Not Detected (NotDetected) Ur Barbiturates Screen Not Detected (NotDetected) U Tricyclic Antidepress Not Detected (NotDetected) Ur Phencyclidine Scrn Not Detected (NotDetected) Ur Amphetamines Screen Detected H (NotDetected) U Methamphetamines Scrn Detected H (NotDetected) U Benzodiazepines Scrn Not Detected (NotDetected) Urine Cocaine Screen Not Detected (NotDetected) U Marijuana (THC) Screen Not Detected (NotDetected) Serum Alcohol <10 mg/dL SARS-CoV-2 (PCR) (Not Detectd) 03/14/24 Range/Units 12:07 WBC (3.8-10.6) k/uL RBC (3.80-5.40) m/uL Hgb (11.4-16.0) gm/dL Hct (34.0-46.0) % MCV (80.0-100.0) fL MCH (25.0-35.0) pg MCHC (31.0-37.0) g/dL RDW (11.5-15.5) % Plt Count (150-450) k/uL MPV Neutrophils % % Lymphocytes % % Monocytes % % Eosinophils % % Basophils % % Neutrophils # (1.3-7.7) k/uL Lymphocytes # (1.0-4.8) k/uL Monocytes # (0-1.0) k/uL Eosinophils # (0-0.7) k/uL Basophils # (0-0.2) k/uL Sodium (137-145) mmol/L Potassium (3.5-5.1) mmol/L Chloride (98-107) mmol/L Carbon Dioxide (22-30) mmol/L Anion Gap mmol/L BUN (7-17) mg/dL Creatinine (0.52-1.04) mg/dL Est GFR (CKD-EPI)AfAm (>60 ml/min/1.73 sqM) Est GFR (CKD-EPI)NonAf (>60 ml/min/1.73 sqM) Glucose (74-99) mg/dL Calcium (8.4-10.2) mg/dL HCG, Quant mIU/mL Urine Opiates Screen (NotDetected) Ur Oxycodone Screen (NotDetected) Urine Methadone Screen (NotDetected) Ur Barbiturates Screen (NotDetected) U Tricyclic Antidepress (NotDetected) Ur Phencyclidine Scrn (NotDetected) Ur Amphetamines Screen (NotDetected) U Methamphetamines Scrn (NotDetected) U Benzodiazepines Scrn (NotDetected) Urine Cocaine Screen (NotDetected) U Marijuana (THC) Screen (NotDetected) Serum Alcohol mg/dL SARS-CoV-2 (PCR) Not Detected (Not Detectd) Disposition <Isidro Layton - Last Filed: 03/14/24 02:58> Decision Time: 12:52 <Lars Jefferson - Last Filed: 03/14/24 12:52> Clinical Impression: Acute psychosis Disposition: ADMITTED IP TO THIS HOSP Condition: Fair Referrals: None,Stated [Primary Care Provider] - 1-2 days
[2024-03-14] MEDS: ZIPRASIDONE 20 MG VIAL IM STA (09:23)
[2024-03-14 10:34] LABS: Basophils # (A) 0.1 k/uL (0-0.2); Basophils % (A) 1 %; Eosinophils # (A) 0.2 k/uL (0-0.7); Eosinophils % (A) 2 %; HCT 41.2 % (34.0-46.0); HGB 13.2 gm/dL (11.4-16.0); Lymphocytes # (A) 1.9 k/uL (1.0-4.8); Lymphocytes % (A) 24 %; MCH 29.1 pg (25.0-35.0); Mean Platelet Volume 8.6; Monocytes # (A) 0.5 k/uL (0-1.0); Monocytes % (A) 6 %; Neutrophils # (A) 5.3 k/uL (1.3-7.7); Neutrophils % (A) 65 %; Platelet Count 257 k/uL (150-450); RBC 4.52 m/uL (3.80-5.40); RDW 14.2 % (11.5-15.5); WBC 8.1 k/uL (3.8-10.6)
[2024-03-14 10:43] LABS: Amphetamine Screen,Urine Detected (NotDetected); Barbiturate Screen,Urine Not Detected (NotDetected); Benzodiazepines Screen,Urine Not Detected (NotDetected); Cocaine Screen,Urine Not Detected (NotDetected); Methadone Screen, Urine Not Detected (NotDetected); Opiate Screen,Urine Not Detected (NotDetected); Oxycodone Screen, Urine Not Detected (NotDetected); Phencyclidine Screen,Urine Not Detected (NotDetected); Tricyclic Antidepressant,Urine Not Detected (NotDetected); Urn Cannabinoid Scrn Not Detected (NotDetected)
[2024-03-14 10:46] LABS: African American GFR (CKD) >90 (>60 ml/min/1.73 sqM); Alcohol <10 mg/dL; Anion Gap 7 mmol/L; Blood Urea Nitrogen 9 mg/dL (7-17); Calcium 8.9 mg/dL (8.4-10.2); Carbon Dioxide 24 mmol/L (22-30); Chloride 107 mmol/L (98-107); Glucose 93 mg/dL (74-99); Non-African American GFR(CKD) >90 (>60 ml/min/1.73 sqM); Sodium 138 mmol/L (137-145)
[2024-03-14 11:02] LABS: HCG,Quantitative Serum <2.4 mIU/mL
[2024-03-14] MEDS ORDERED: MAGNESIUM HYDROXIDE 2,400 MG/30 ML CUP PO PRN (14:52)
[2024-03-14] MEDS ORDERED: MAG HYDROX/AL HYDROX/SIMETH 355 ML BOTTLE PO PRN (14:52)
[2024-03-14] MEDS ORDERED: HALOPERIDOL LACTATE 5 MG/ML 1 ML VIAL IM PRN (14:54)
[2024-03-14] MEDS ORDERED: LORazepam 2 MG/ML INJ IM PRN (14:54)
--- NOTE | 2024-03-15 00:26 | P.PN ---
Progress Note - Text Progress Note Date: 03/15/24 Patient in acute psychosis and inappropriate for medical evaluation at this time
[2024-03-15] MEDS: NICOTINE 14MG/24HR PATCH TRANSDERM SCH (10:02)
[2024-03-15] MEDS: LORazepam 1 MG TAB PO PRN (10:03)
[2024-03-15 10:57] LABS: Amorphous Sediment,Urine Rare /hpf; Appearance,Urine Turbid (Clear); Bacteria,Urine Occasional /hpf; Bilirubin,Urine Negative (Negative); Blood,Urine Small (Negative); Color,Urine Dark Yellow; Glucose,Urine (UA) Trace (Negative); Ketones,Urine Trace (Negative); Leukocyte Esterase,Urine Large (Negative); Mucus,Urine Many /hpf; Nitrite,Urine Negative (Negative); PH, Urine 6.5 (5.0-8.0); Protein,Urine 3+ (Negative); RBC,Urine >182 /hpf (0-5); Specific Gravity,Urine 1.023 (1.001-1.035); Squamous Epithelial Cell,Urine 248 /hpf (0-4); WBC,Urine >182 /hpf (0-5)
--- NOTE | 2024-03-15 18:35 | P.MDCNMH ---
History of Present Illness H&P Date: 03/15/24 Chief Complaint: medical management 28-year-old woman with nicotine dependence, mood disorder presented for mental health evaluation. Medicine was consulted for medical management and clearance. Patient has no new complaints at this time. Denies any medical history of hyp ertension, hyperlipidemia, diabetes. She denies heart disease, liver disease, kidney disease. Patient is afebrile, hemodynamically stable. CBC is unremarkable. Basic metabolic panel shows hypokalemia 3.0, otherwise unremarkable. TSH was 1.85. hCG was less than 2.4. UA was contaminated. Urine tox was positive for amphetamines and methamphetamines. COVID was negative. No imaging to review. All Systems reviewed and pertinent positives and negatives noted in HPI, all other symptoms are negative Gen: In NAD, non-toxic HEENT: normocephalic, atraumatic, hearing acuity is intant, mucous membranes moist CVS: perfusing all extremities well, no pitting edema, Respiratory: symmetric chest expansion, no accessory muscle use, GI: soft, NTTP, ND, : no suprapubic tenderness, no CVA tenderness MSK/Derm: no rashes, cyanosis Neuro: CN II-XII intact, no motor weakness, Psych: cooperative, euthymic mood, judgment and insight is intact Assessment/plan: Hypokalemia -Repeat BMP tomorrow morning Nicotine dependence -Agree with continuation of nicotine patch Mood disorder -Care per primary team Patient is full code Past Medical History Past Medical History: No Reported History Additional Past Medical History / Comment(s): Obstetric history: 2 previous normal vaginal deliveries and 1 miscarriage at 7 weeks gestation. This is her fourth . She had care with me she waited to get her blood work done until a few weeks ago. Blood type is O+, antibodies negative, rubella immune, RPR and treponemal ab positive, hepatitis B-. Due to the positive syphilis status she was started on IM penicillin and a consult with [facility] was scheduled. History of Any Multi-Drug Resistant Organisms: None Reported Additional Past Surgical History / Comment(s): left hip surgery as an Past Anesthesia/Blood Transfusion Reactions: No Reported Reaction Past Psychological History: Anxiety, Depression, PTSD Smoking Status: Current every day smoker Past Alcohol Use History: None Reported Past Drug Use History: Marijuana, Methamphetamine - Past Family History Mother Family Medical History: Cancer Additional Family Medical History / Comment(s): grandmother breast CA Father Family Medical History: Myocardial Infarction (SC) Additional Family Medical History / Comment(s): grandfather had [place] Medications and Allergies Home Medications Medication Instructions Recorded Confirmed Type Melatonin 10 mg PO HS #0 tab 12/31/23 01/10/24 Rx hydrOXYzine pamoate [Vistaril] 50 mg PO DAILY PRN 14 Days #28 cap 12/31/23 01/10/24 Rx Melatonin 10 mg PO HS 01/13/24 01/13/24 History hydrOXYzine pamoate [Vistaril] 25 mg PO QID PRN 01/13/24 01/13/24 History Benztropine Mesylate [Cogentin] 0.5 mg PO HS PRN #30 tab 01/26/24 Rx Nicotine 14Mg/24Hr Patch [Habitrol] 1 patch TRANSDERM DAILY patch 01/26/24 Rx Sertraline [Zoloft] 100 mg PO HS #30 tab 01/26/24 Rx fluPHENAZine [Prolixin] 5 mg PO HS #30 tab 01/26/24 Rx Allergies Allergy/AdvReac Type Severity Reaction Status Date / Time No Known Allergies Allergy Verified 03/14/24 12:54 Physical Exam Osteopathic Statement: *. No significant issues noted on an osteopathic structural exam other than those noted in the History and Physical/Consult. Vitals: Vital Signs Temp Pulse Resp BP Pulse Ox 03/15/24 15:00 97.4 F L 89 17 100/70 98 Cranial Nerve Examination - Cranial Nerves Cranial Nerve II- Optic: Intact Cranial Nerve III- Oculomotor: Intact Cranial Nerve IV- Trochlear: Intact Cranial Nerve V- Trigeminal: Intact Cranial Nerve - Abducens: Intact Cranial Nerve VII- Facial: Intact Cranial Nerve VIII- Auditory: Intact Cranial Nerve IX- Glossopharyngeal: Intact Cranial Nerve X- Vagus: Intact Cranial Nerve XI- Accessory: Intact Cranial Nerve XII- Hypoglossal: Intact Results CBC & Chem 7: 03/14/24 10:20 03/14/24 10:20 Labs: Abnormal Lab Results - Last 24 Hours (Table) 03/15/24 Range/Units 09:34 Urine Appearance Turbid H (Clear) Urine Protein 3+ H (Negative) Urine Glucose (UA) Trace H (Negative) Urine Ketones Trace H (Negative) Urine Blood Small H (Negative) Ur Leukocyte Esterase Large H (Negative) Urine RBC >182 H (0-5) /hpf Urine WBC >182 H (0-5) /hpf Ur Squamous Epith Cells 248 H (0-4) /hpf Amorphous Sediment Rare H (None) /hpf Urine Bacteria Occasional H (None) /hpf Urine Mucus Many H (None) /hpf
[2024-03-15] MEDS: hydrOXYzine pamoate 25 MG CAP PO PRN (20:42)
[2024-03-15] MEDS: haloperidoL 5 MG TAB PO PRN (21:23)
[2024-03-16 09:01] LABS: African American GFR (CKD) >90 (>60 ml/min/1.73 sqM); Anion Gap 4 mmol/L; Blood Urea Nitrogen 12 mg/dL (7-17); Calcium 8.9 mg/dL (8.4-10.2); Carbon Dioxide 27 mmol/L (22-30); Chloride 107 mmol/L (98-107); Glucose 88 mg/dL (74-99); Non-African American GFR(CKD) >90 (>60 ml/min/1.73 sqM); Potassium 3.8 mmol/L (3.5-5.1); Sodium 138 mmol/L (137-145)
[2024-03-16] MEDS: SERTRALINE 25 MG TAB PO SCH (09:57)
[2024-03-16 10:45] LABS: Chol/HDL Ratio 2.92 Ratio; LDL Cholesterol,Calculated 61.1 mg/dL (0.0-131.0)
[2024-03-16] MEDS ORDERED: HALOPERIDOL LACTATE 5 MG/ML 1 ML VIAL IM PRN (11:55)
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
--- NOTE | 2024-03-16 14:49 | P.PN ---
Progress Note - Text Progress Note Date: 03/16/24 Follow-up Mediation Review Chief Complaint: I feel tired. Subjective: The patient noted that she has been feeling tired. The patient is concerned about finding a detention for her after discharge. The social work indicated that she will be going to [facility] for rehab. She may be already enrolled in it and waiting for their response. The patient was informed to keep in touch with [facility] social welfare research worker to follow-up with the discharge planning. The patient no other complaints. She has been started on Zoloft 50 mg po daily. The dose will be titrated up. Complaint since yesterday: She reported no side effects. The patient has not been attending the groups. The participation is limited. The interaction with staff and peers is limited. The patient is compliant with treatment recommendations. Leading questions: The patient admitted to Depression and Anxiety. Denied SI or HI. Denied symptoms consistent with psychosis Sleep and Appetite: She has been sleeping a lot. Her appetite is fair. Change in family/ living/job/financial/daily routine: Currently, she is homel ess. [facility] Change in medical condition: No change. Change in medications: No change. Side effects from Medications: None. Allergies: No change. Objective- MSE: Alert and attentive. Orientation times three. Dressed and Groomed: Adequately. Pleasant and cooperative. Psychomotor Activity: Normal. Speech: Normal in tone, quality, and quantity. Mood: Depressed and anxious. Affect: Anxious and tense. SI or HI: None. Perceptual disturbance: None. Thought Content: No paranoia or other delusional thinking noted. Thought Process: Normal. Cognition: Intact Judgment and Insight: Poor. AIMS: Normal. Labs: No new labs. Diagnosis: No change. Plan and Recommendations: Continue current Medications. Monitor MS and side effects of medications and adjust medications accordingly. Provide supportive psychotherapy. The patient provided psychoeducation and advised The patient provided Substance abuse counseling. Smoke cessation therapy. The patient to attend concepcion activities. Medication Consent with explanation of risk/benefits and side effects: Explained and obtained.
[2024-03-17] MEDS: SERTRALINE 50 MG TAB PO SCH (09:44)
--- NOTE | 2024-03-17 13:57 | P.PN ---
Progress Note - Text Progress Note Date: 03/17/24 Follow-up Mediation Review Chief Complaint: I am feeling. Subjective: The patient noted that she attended both the groups this morning. She appeared in better spirits. The patient initially noted that her boyfriend is not returning her calls but later noted that her mother and boyfriend said that she can stay at their home after discharge. She feels much better than the time she came to the hospital. Discussed with patient about going to rehab. the patient feels that she could from going to one. She seems to be working on it. The patient has no other complaints. She has been titrated to Zoloft 100 mg po daily. The patient reported no side effects. Complaint since yesterday: She reported no side effects. The patient has started attending the groups. The participation is limited. The interaction with staff and peers is limited. The patient is compliant with treatment recommendations. Leading questions: The patient admitted to Depression and Anxiety. Denied SI or HI. Denied symptoms consistent with psychosis Sleep and Appetite: Her appetite and sleep are fair. Change in family/ living/job/financial/daily routine: As per patient she can return to her mother or boyfriend. Change in medical condition: No change. Change in medications: No change. Side effects from Medications: None. Allergies: No change. Objective- MSE: Alert and attentive. Orientation times three. Dressed and Groomed: Adequately. Pleasant and cooperative. Psychomotor Activity: Normal. Speech: Normal in tone, quality, and quantity. Mood: Depressed and anxious. Affect: Anxious and tense. SI or HI: None. Perceptual disturbance: None. Thought Content: No paranoia or other delusional thinking noted. Thought Process: Normal. Cognition: Intact Judgment and Insight: Poor. AIMS: Normal. Labs: No new labs. Diagnosis: No change. Plan and Recommendations: Continue current Medications. Monitor MS and side effects of medications and adjust medications accordingly. Provide supportive psychotherapy. The patient provided psychoeducation and advised The patient provided Substance abuse counseling. Smoke cessation therapy. The patient to attend concepcion activities. Medication Consent with explanation of risk/benefits and side effects: Explained and obtained.
[2024-03-18] MEDS: SERTRALINE 50 MG TAB PO SCH (10:27)
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
[2024-03-18] MEDS: traZODone HCL 50 MG TAB PO PRN (21:51)
[2024-03-19] MEDS: buPROPion SR 100 MG TABLET.ER PO SCH (11:21)
--- NOTE | 2024-03-19 15:51 | P.PN ---
Progress Note - Text Progress Note Date: 03/19/24 Follow-up Mediation Review Chief Complaint: I am fine. Subjective: The patient noted that she is attending groups and has interacting with peers and staff. She reported sleeping and eating. She intends to go to her mothers house and continue [facility] follow-up. She mentioned that she will not go to residential rehab but go to / and seek substance abuse counseling. She further indicated that she would visiting certain neighborhoods to try to get off drugs. She understands that she cant see her kids because of drugs. She noted that her is supportive and nice but wants her to get off drugs before she can be involved in his life and childrens lives. She reported no s svetlana effects. Wellbutrin increased to 150 mg daily. Consent obtained. Complaint since yesterday: She reported no side effects. The patient is attending some of the groups. The participation is fair. The interaction with staff and peers is improving. The patient is compliant with treatment recommendations. Leading questions: The patient admitted to Depression and Anxiety. Denied SI or HI. Denied symptoms consistent with psychosis Sleep and Appetite: Her appetite and sleep are fair. Change in family/ living/job/financial/daily routine: No change. Change in medical condition: No change. Change in medications: No change. Side effects from Medications: None. Allergies: No change. Objective- MSE: Alert and attentive. Orientation times three. Dressed and Groomed: Adequately. Pleasant and cooperative. Psychomotor Activity: Normal. Speech: Normal in tone, quality, and quantity. Mood: Depressed and anxious. Affect: Anxious and tense. SI or HI: None. Perceptual disturbance: None. Thought Content: No paranoia or other delusional thinking noted. Thought Process: Normal. Cognition: Intact Judgment and Insight: Fair. AIMS: Normal. Labs: No new labs. Diagnosis: No change. Plan and Recommendations: Continue current Medications. Increased Wellbutrin to 150 mg po daily. Monitor MS and side effects of medications and adjust medications accordingly. Provide supportive psychotherapy. The patient provided psychoeducation and advised The patient provided Substance abuse counseling. Smoke cessation therapy. The patient to attend concepcion activities. Medication Consent with explanation of risk/benefits and side effects: Explained and obtained.
[2024-03-20] MEDS: buPROPion XL 150 MG TAB.ER.24H PO SCH (09:40)
--- NOTE | 2024-03-20 12:29 | P.PN ---
Subjective Progress Note Date: 03/20/24 Principal diagnosis: Diagnosis: Psychosis, unspecified. Possible drug induced psychosis. Patient Name: Luz Dotson Date of : 89 Patient Status: Inpatient Attending Provider: Mikel Rincon Date: 03/20/24 Initialization Date: 03/19/24 15:51 Subjective: Data: The patient was seen and chart was reviewed and case discussed with nursing staff Patient was sleeping in her bed and was easily arousable Patient states that she is doing fine Patient continues to stare and gives brief monosyllabic abrupt answers She states that she currently lives with her parents and has 2 children age 9 and 3 that she takes care of She denies any other problems or issues Did not volunteer any information Patient denies any alcohol or substance use Patient maintains a very osborn stare and does not volunteer or give much of any further information Chart review: From the previous day The patient noted that she is attending groups and has interacting with peers and staff. She reported sleeping and eating. She intends to go to her mothers house and continue [facility] follow-up. She mentioned that she will not go to residential rehab but go to AA/ and seek substance abuse counseling. She further indicated that she would visiting certain neighborhoods to try to get off drugs. She understands that she cant see her kids because of drugs. She noted that her is supportive and nice but wants her to get off drugs before she can be involved in his life and childrens lives. She reported no side effects. Wellbutrin increased to 150 mg daily. Consent obtained. Complaint since yesterday: She reported no side effects. MSE: Alert and attentive. Orientation times three. Dressed and Groomed: Adequately. Remains very guarded and superficial Psychomotor Activity: Normal. Speech: Normal in tone, quality, and quantity. Monosyllabic responses impoverished Mood: Depressed and anxious. Affect: tense. SI or HI: None. Perceptual disturbance: None. Thought Content: No paranoia or other delusional thinking noted. Thought Process: Normal. Cognition: Intact Judgment and Insight: Impaired AIMS: Normal. Labs: No new labs. Diagnosis: Psychosis, unspecified. Possible drug induced psychosis. Polysubstance use disorder Plan and Recommendations: Continue current Medications. Wellbutrin to 150 mg po daily. Monitor MS and side effects of medications and adjust medications accordingly. Provide supportive psychotherapy. The patient provided psychoeducation and advised The patient provided Substance abuse counseling. Smoke cessation therapy. The patient to attend concepcion activities. Medication Consent with explanation of risk/benefits and side effects: Explained and obtained. Camilo Ruggiero MD Active Medications Generic Name Dose Route Start Last Admin Trade Name Freq PRN Reason Stop Dose Admin Acetaminophen 650 mg 03/14/24 14:52 Acetaminophen Tab 325 Mg Tab PO Q4HR PRN Mild Pain (Scale 1 to 3) Al Hydroxide/Mg Hydroxide 30 ml 03/14/24 14:52 Mag Hydrox/Al Hydrox/Simeth 355 Ml Bottle PO Q4HR PRN GI Upset Bupropion HCl 150 mg 03/20/24 09:00 03/20/24 09:40 Bupropion Xl 150 Mg Tab.Er.24h PO 150 mg DAILY KATHIA Administration Haloperidol 5 mg 03/14/24 14:54 03/18/24 10:26 Haloperidol 5 Mg Tab PO 5 mg Q6H PRN Administration Agitation or Acute Psychosis Haloperidol Lactate 2 mg 03/16/24 11:55 Haloperidol Lactate 5 Mg/Ml 1 Ml Vial IM Q6HR PRN Agitation or Acute Psychosis Hydroxyzine Pamoate 25 mg 03/15/24 13:27 03/20/24 11:58 Hydroxyzine Pamoate 25 Mg Cap PO 25 mg Q6HR PRN Administration Anxiety Ibuprofen 600 mg 03/14/24 14:52 Ibuprofen 600 Mg Tab PO Q6HR PRN Moderate Pain (Scale 4 to 6) Lorazepam 1 mg 03/14/24 14:54 Lorazepam 2 Mg/Ml Inj IM Q6HR PRN Agitation or Acute Anxiety Lorazepam 1 mg 03/14/24 14:54 03/20/24 11:51 Lorazepam 1 Mg Tab PO 1 mg Q6H PRN Administration Agitation or Acute Anxiety Magnesium Hydroxide 2,400 mg 03/14/24 14:52 Magnesium Hydroxide 2,400 Mg/30 Ml Cup PO DAILY PRN Constipation Nicotine 1 patch 03/15/24 09:00 03/20/24 09:41 Nicotine 14mg/24hr Patch TRANSDERM Not Given DAILY KATHIA Trazodone HCl 50 mg 03/15/24 13:27 03/18/24 21:51 Trazodone Hcl 50 Mg Tab PO 50 mg HS PRN Administration Insomnia Objective - Vital Signs Vital signs: Vital Signs Temp 97.5 F L 03/20/24 06:00 Pulse 84 03/20/24 06:00 Resp 18 03/20/24 06:00 BP 99/63 03/20/24 06:00 Pulse Ox 96 03/20/24 06:00 FiO2 - Labs CBC & Chem 7: 03/14/24 10:20 03/16/24 08:20
[2024-03-20] MEDS: ACETAMINOPHEN TAB 325 MG TAB PO PRN (17:07)
[2024-03-20] MEDS: IBUPROFEN 600 MG TAB PO PRN (20:38)
[2024-03-21 07:20] VITALS: RESP 14
--- NOTE | 2024-03-21 09:10 | P.PN ---
Subjective Progress Note Date: 03/21/24 Principal diagnosis: Diagnosis: Psychosis, unspecified. Possible drug induced psychosis. Patient Name: Luz Dotson Date of : 89 Patient Status: Inpatient Attending Provider: Mikel Rincon Date: 03/21/24 Initialization Date: 03/19/24 15:51 Subjective: Data: Patient was seen and chart was reviewed and case discussed with nursing staff The patient was sleeping and her bed and was arousable however she did not seem to be wanting to participate in this interview Patient made some grunting responses to the questions asked She states that she is doing better and is not having any problems She denies any suicidal or homicidal ideations or plans She denies any other problems or issues Did not volunteer any information Patient denies any alcohol or substance use Patient maintains a very osborn stare and does not volunteer or give much of any further information Chart review: From the previous day The patient noted that she is attending groups and has interacting with peers and staff. She reported sleeping and eating. She intends to go to her [facility] and continue [facility] follow-up. She mentioned that she will not go to residential rehab but go to AA/ and seek substance abuse counseling. She further indicated that she would visiting certain neighborhoods to try to get off drugs. She understands that she cant see her kids because of drugs. She noted that her is supportive and nice but wants her to get off drugs before she can be involved in his life and childrens lives. She reported no side effects. Wellbutrin increased to 150 mg daily. Consent obtained. Complaint since yesterday: She reported no side effects. MSE: Alert and attentive. Orientation times three. Dressed and Groomed: Adequately. Remains very guarded and superficial Psychomotor Activity: Normal. Speech: Normal in tone, quality, and quantity. Monosyllabic responses impoverished Mood: Depressed and anxious. Affect: tense. SI or HI: None. Perceptual disturbance: None. Thought Content: No paranoia or other delusional thinking noted. Thought Process: Normal. Cognition: Intact Judgment and Insight: Impaired AIMS: Normal. Labs: No new labs. Diagnosis: Psychosis, unspecified. Possible drug induced psychosis. Polysubstance use disorder Plan and Recommendations: Continue current Medications. Wellbutrin to 150 mg po daily. Monitor MS and side effects of medications and adjust medications accordingly. Provide supportive psychotherapy. The patient provided psychoeducation and advised The patient provided Substance abuse counseling. Smoke cessation therapy. The patient to attend concepcion activities. Medication Consent with explanation of risk/benefits and side effects: Explained and obtained. Camilo Ruggiero MD Active Medications Generic Name Dose Route Start Last Admin Trade Name Freq PRN Reason Stop Dose Admin Acetaminophen 650 mg 03/14/24 14:52 Acetaminophen Tab 325 Mg Tab PO Q4HR PRN Mild Pain (Scale 1 to 3) Al Hydroxide/Mg Hydroxide 30 ml 03/14/24 14:52 Mag Hydrox/Al Hydrox/Simeth 355 Ml Bottle PO Q4HR PRN GI Upset Bupropion HCl 150 mg 03/20/24 09:00 03/20/24 09:40 Bupropion Xl 150 Mg Tab.Er.24h PO 150 mg DAILY KATHIA Administration Haloperidol 5 mg 03/14/24 14:54 03/18/24 10:26 Haloperidol 5 Mg Tab PO 5 mg Q6H PRN Administration Agitation or Acute Psychosis Haloperidol Lactate 2 mg 03/16/24 11:55 Haloperidol Lactate 5 Mg/Ml 1 Ml Vial IM Q6HR PRN Agitation or Acute Psychosis Hydroxyzine Pamoate 25 mg 03/15/24 13:27 03/20/24 11:58 Hydroxyzine Pamoate 25 Mg Cap PO 25 mg Q6HR PRN Administration Anxiety Ibuprofen 600 mg 03/14/24 14:52 Ibuprofen 600 Mg Tab PO Q6HR PRN Moderate Pain (Scale 4 to 6) Lorazepam 1 mg 03/14/24 14:54 Lorazepam 2 Mg/Ml Inj IM Q6HR PRN Agitation or Acute Anxiety Lorazepam 1 mg 03/14/24 14:54 03/20/24 11:51 Lorazepam 1 Mg Tab PO 1 mg Q6H PRN Administration Agitation or Acute Anxiety Magnesium Hydroxide 2,400 mg 03/14/24 14:52 Magnesium Hydroxide 2,400 Mg/30 Ml Cup PO DAILY PRN Constipation Nicotine 1 patch 03/15/24 09:00 03/20/24 09:41 Nicotine 14mg/24hr Patch TRANSDERM Not Given DAILY KATHIA Trazodone HCl 50 mg 03/15/24 13:27 03/18/24 21:51 Trazodone Hcl 50 Mg Tab PO 50 mg HS PRN Administration Insomnia Objective - Vital Signs Vital signs: Vital Signs Temp 97.4 F L 03/21/24 06:44 Pulse 63 03/21/24 06:44 Resp 14 03/21/24 06:44 BP 82/52 03/21/24 06:44 Pulse Ox 98 03/21/24 06:44 FiO2 - Labs CBC & Chem 7: 03/14/24 10:20 03/16/24 08:20
[2024-03-22 07:30] VITALS: BP 89/46; PULSE 60; TEMP 97.7
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
[2024-03-22] MEDS ORDERED: risperiDONE 0.5 MG TAB PO SCH (21:00)
== END 2024-03-22 14:24 | disposition home or self-care (01) | DRG 776 ==
LOC: EC 02:44 → 3MHU 14:34
PROVIDERS: ADMIT Psychiatry & Neurology Psychiatry; ATTEND Psychiatry & Neurology Psychiatry
DX: F15.959 Other stimulant use, unspecified with stimulant-induced psychotic disorder, unspecified (principal); E87.6 Hypokalemia; F32.A Depression, unspecified; Z11.52 Encounter for screening for COVID-19; Z28.310 Unvaccinated for COVID-19; F43.10 Post-traumatic stress disorder, unspecified; F41.9 Anxiety disorder, unspecified; F17.210 Nicotine dependence, cigarettes, uncomplicated; Z71.6 Tobacco abuse counseling; Z79.899 Other long term (current) drug therapy; Z59.819 Housing instability, housed unspecified; Z59.12 Inadequate housing utilities; Z71.51 Drug abuse counseling and surveillance of drug abuser
CPT/HCPCS: 36415; 80048; 80061; 80306; 80320; 81001; 81025; 82075; 83036; 84443; 84702; 85025; 87635; 93005; 96372; 99285

== ENCOUNTER 2024-03-30 21:05 | Emergency (ER) | payer OTHER ==
--- NOTE | 2024-03-30 22:22 | ED ---
Psych HPI - General Chief Complaint: Psychiatric Symptoms Stated Complaint: Mental Health Time Seen by Provider: 03/30/24 22:06 Source: police, RN notes reviewed, old records reviewed Mode of arrival: ambulatory Limitations: no limitations - History of Present Illness Initial Comments: This is a 28-year-old female to the ER for evaluation of psychiatric illness and psychosis MD Complaint: altered mental status -: days(s) Associated Psychiatric Symptoms: suicidal ideation, racing thoughts, auditory hallucinations, delusions Quality: constant Improves With: none Worsens With: none Context: significant life stressor Associated Symptoms: denies other symptoms Treatments Prior to Arrival: placed on mental health hold If Self Harm: admits thoughts of self harm - Related Data Home Medications Medication Instructions Recorded Confirmed hydrOXYzine pamoate [Vistaril] 25 mg PO QID PRN 01/13/24 03/31/24 Previous Rx's Medication Instructions Recorded Melatonin 10 mg PO HS #0 tab 12/31/23 buPROPion XL [Wellbutrin XL] 150 mg PO DAILY 15 Days #15 tab 03/22/24 risperiDONE [RisperDAL] 0.5 mg PO HS 15 Days #15 tab 03/22/24 traZODone HCL [Desyrel] 50 mg PO HS PRN 15 Days #15 tab 03/22/24 Allergies Allergy/AdvReac Type Severity Reaction Status Date / Time No Known Allergies Allergy Verified 03/31/24 11:21 Review of Systems ROS Statement: Those systems with pertinent positive or pertinent negative responses have been documented in the HPI. ROS Other: All systems not noted in ROS Statement are negative. Past Medical History Past Medical History: No Reported History Additional Past Medical History / Comment(s): Obstetric history: 2 previous normal vaginal deliveries and 1 miscarriage at 7 weeks gestation. This is her fourth . She had care with me she waited to get her blood work done until a few weeks ago. Blood type is O+, antibodies negative, rubella immune, RPR and treponemal ab positive, hepatitis B-. Due to the positive syphilis status she was started on IM penicillin and a consult with [facility] was scheduled. History of Any Multi-Drug Resistant Organisms: None Reported Additional Past Surgical History / Comment(s): left hip surgery as an infant Past Anesthesia/Blood Transfusion Reactions: No Reported Reaction Past Psychological History: Anxiety, Depression, PTSD Smoking Status: Current every day smoker Past Drug Use History: Marijuana, Methamphetamine - Past Family History Mother Family Medical History: Cancer Additional Family Medical History / Comment(s): grandmother breast [place] Father Family Medical History: Myocardial Infarction ([place]) Additional Family Medical History / Comment(s): grandfather had [place] General Exam Limitations: no limitations General appearance: alert, in no apparent distress Head exam: Present: atraumatic, normocephalic, normal inspection Eye exam: Present: normal appearance, PERRL, EOMI. Absent: scleral icterus, conjunctival injection, periorbital swelling ENT exam: Present: normal exam, mucous membranes moist Neck exam: Present: normal inspection. Absent: tenderness, meningismus, lymphadenopathy Respiratory exam: Present: normal lung sounds bilaterally. Absent: respiratory distress, wheezes, rales, rhonchi, stridor Cardiovascular Exam: Present: regular rate, normal rhythm, normal heart sounds. Absent: systolic murmur, diastolic murmur, rubs, gallop, clicks GI/Abdominal exam: Present: soft, normal bowel sounds. Absent: distended, tenderness, guarding, rebound, rigid Extremities exam: Present: normal inspection, full ROM, normal capillary refill. Absent: tenderness, pedal edema, joint swelling, calf tenderness Back exam: Present: normal inspection Neurological exam: Present: alert, oriented X3, CN II-XII intact Psychiatric exam: Present: normal affect, normal mood Skin exam: Present: warm, dry, intact, normal color. Absent: rash Course Vital Signs 03/30/24 03/31/24 03/31/24 21:18 05:53 12:14 Temperature 97.5 F L 98.3 F Pulse Rate 104 H 63 61 Respiratory 18 16 18 Rate Blood Pressure 128/71 109/73 91/61 O2 Sat by Pulse 99 100 98 Oximetry - Reevaluation(s) Reevaluation #1: 03/30/24 23:13 Medical records reviewed Reevaluation #2: 03/30/24 23:13 Medically clear for psychiatric evaluation Reevaluation #3: Differential Mental Health Depression, anxiety, bipolar, psychosis, schizophrenia, borderline personality, situational depression, adjustment disorder, behavioral disorder, brain tumor, malingering, substance abuse, encephalopathy, medication reaction, dementia, hypothyroidism, degenerative neurologic disorder, lupus.... This is not meant to be all-inclusive list Reevaluation #4: Was pt. sent in by a medical professional or institution (LENIN Lindo, TRUCK RENTAL CLERK, urgent care, hospital, or assisted...) When possible be specific @ -no Did you speak to anyone other than the patient for history (EMS, parent, family, police, friend...)? What history was obtained from this source @ -no Did you review nursing and triage notes (agree or disagree)? Why? @ -agree Are old charts reviewed (outside hosp., previous admission, EMS record, old EKG, old radiological studies, urgent care reports/EKG's, assisted records)? Report findings @ -yes Differential Diagnosis (chest pain, altered mental status, abdominal pain women, abdominal pain men, vaginal bleeding, weakness, fever, dyspnea, syncope, headache, dizziness, GI bleed, back pain, seizure, CVA, palpatations, mental health, musculoskeletal)? @ -prior EKG interpreted by me (3pts min.). @ -no X-rays interpreted by me (1pt min.). @ -no CT interpreted by me (1pt min.). @ -no U/S interpreted by me (1pt. min.). @ -no What testing was considered but not performed or refused? (CT, X-rays, U/S, labs)? Why? @ -none What meds were considered but not given or refused? Why? @ -none Did you discuss the management of the patient with other professionals (professionals i.e. LENIN Lindo, TRUCK RENTAL CLERK, lab, RT, psych nurse, social sciences research scientist, bark peeler, teacher, disbursing officer, case checker)? Give summary @ -no Was smoking cessation discussed for >3mins.? @ -no Was critical care preformed (if so, how long)? @ -no Were there social determinants of health that impacted care today? How? (Homelessness, low income, unemployed, alcoholism, drug addiction, transportation, low edu. Level, literacy, decrease access to med. care, [place] [facility], rehab)? @ -none Was there de-escalation of care discussed even if they declined (Discuss DNR or withdrawal of care, Hospice)? DNR status @ -no What co-morbidities impacted this encounter? (DM, HTN, Smoking, COPD, CAD, Cancer, CVA, ARF, Chemo, Hep., AIDS, mental health diagnosis, sleep apnea, morbid obesity)? @ -none Was patient admitted / discharged? Hospital course, mention meds given and route, prescriptions, significant lab abnormalities, going to OR and other pertinent info. @ - 28 female seen eval by psychiatry here in the ER and deemed stable for discharge home Discharge Undiagnosed new problem with uncertain prognosis? @ -no Drug Therapy requiring intensive monitoring for toxicity (Heparin, Nitro, Insulin, Cardizem)? @ -no Were any procedures done? @ -no Diagnosis/symptom? @ -Mental health Acute, or Chronic, or Acute on Chronic? @ -Acute Uncomplicated (without systemic symptoms) or Complicated (systemic symptoms)? @ -Complicated Side effects of treatment? @ -no Exacerbation, Progression, or Severe Exacerbation? @ -exacerbation Poses a threat to life or bodily function? How? (Chest pain, [place], [place], pneumonia, PE, COPD, DKA, ARF, appy, cholecystitis, CVA, Diverticulitis, Homicidal, Suicidal, threat to staff... and all critical care pts) @ -no Medical Decision Making - Medical Decision Making 28 female seen eval by psychiatry here in the ER and deemed stable for discharge home - Lab Data Lab Results 03/30/24 Range/Units 22:45 Urine Opiates Screen Not Detected (NotDetected) Ur Oxycodone Screen Not Detected (NotDetected) Urine Methadone Screen Not Detected (NotDetected) Ur Barbiturates Screen Not Detected (NotDetected) U Tricyclic Antidepress Not Detected (NotDetected) Ur Phencyclidine Scrn Not Detected (NotDetected) Ur Amphetamines Screen Detected H (NotDetected) U Methamphetamines Scrn Detected H (NotDetected) U Benzodiazepines Scrn Not Detected (NotDetected) Urine Cocaine Screen Not Detected (NotDetected) U Marijuana (THC) Screen Not Detected (NotDetected) Disposition Clinical Impression: Acute anxiety, Depression, Acute psychosis Disposition: HOME SELF-CARE Condition: Fair Instructions (If sedation given, give patient instructions): Depression (ED) Is patient prescribed a controlled substance at d/c from ED?: No Referrals: None,Stated [Primary Care Provider] - 1-2 days
[2024-03-30] MEDS: HALOPERIDOL LACTATE 5 MG/ML 1 ML VIAL IM STA (22:57)
[2024-03-30 23:45] LABS: Amphetamine Screen,Urine Detected (NotDetected); Barbiturate Screen,Urine Not Detected (NotDetected); Benzodiazepines Screen,Urine Not Detected (NotDetected); Cocaine Screen,Urine Not Detected (NotDetected); Methadone Screen, Urine Not Detected (NotDetected); Opiate Screen,Urine Not Detected (NotDetected); Oxycodone Screen, Urine Not Detected (NotDetected); Phencyclidine Screen,Urine Not Detected (NotDetected); Tricyclic Antidepressant,Urine Not Detected (NotDetected); Urn Cannabinoid Scrn Not Detected (NotDetected)
[2024-03-31 12:15] VITALS: BP 91/61; PULSE 61; RESP 18; TEMP 98.3
== END 2024-03-31 12:24 | disposition home or self-care (01) ==
LOC: EC 21:05
DX: F23 Brief psychotic disorder (principal); F41.9 Anxiety disorder, unspecified; F32.A Depression, unspecified; F17.200 Nicotine dependence, unspecified, uncomplicated; F12.90 Cannabis use, unspecified, uncomplicated; F15.90 Other stimulant use, unspecified, uncomplicated
CPT/HCPCS: 82075; 80306; 99285; 96372; J1630

== ENCOUNTER 2024-04-08 06:42 | Inpatient (IN) | payer MEDICAID, OTHER ==
--- NOTE | 2024-04-08 08:35 | ED ---
General Adult HPI - General Chief complaint: Psychiatric Symptoms Stated complaint: Petition Time Seen by Provider: 04/08/24 08:00 Source: patient, police, RN notes reviewed, old records reviewed Mode of arrival: ambulatory Limitations: no limitations - History of Present Illness Initial comments: This is a 28-year-old female who presents to the emergency department in the custody of police. Police petitioned her because they found walking down the street without any shirt on. Patient states she left the house she was because they were talking very early she wanted to get out. Patient states that she does do methamphetamines. Patient denies any alcohol use. Patient states she was going to go to [facility] today but since the police picked her up and brought her here she is unable to. Patient is often babbling and going off on tangents that are not pertinent to the question asked. Patient has no physical complaints today. Patient is easily agitated. - Related Data Home Medications Medication Instructions Recorded Confirmed hydrOXYzine pamoate [Vistaril] 25 mg PO QID PRN 01/13/24 03/31/24 Previous Rx's Medication Instructions Recorded Melatonin 10 mg PO HS #0 tab 12/31/23 buPROPion XL [Wellbutrin XL] 150 mg PO DAILY 15 Days #15 tab 03/22/24 risperiDONE [RisperDAL] 0.5 mg PO HS 15 Days #15 tab 03/22/24 traZODone HCL [Desyrel] 50 mg PO HS PRN 15 Days #15 tab 03/22/24 Allergies Allergy/AdvReac Type Severity Reaction Status Date / Time No Known Allergies Allergy Verified 04/08/24 06:45 Review of Systems ROS Statement: Those systems with pertinent positive or pertinent negative responses have been documented in the HPI. ROS Other: All systems not noted in ROS Statement are negative. Past Medical History Past Medical History: No Reported History Additional Past Medical History / Comment(s): Obstetric history: 2 previous normal vaginal deliveries and 1 miscarriage at 7 weeks gestation. This is her fourth . She had care with me she waited to get her blood work done until a few weeks ago. Blood type is O+, antibodies negative, rubella immune, RPR and treponemal ab positive, hepatitis B-. Due to the positive syphilis status she was started on IM penicillin and a consult with [facility] was scheduled. History of Any Multi-Drug Resistant Organisms: None Reported Additional Past Surgical History / Comment(s): left hip surgery as an Past Anesthesia/Blood Transfusion Reactions: No Reported Reaction Past Psychological History: Anxiety, Depression, PTSD Smoking Status: Current every day smoker Past Alcohol Use History: None Reported Past Drug Use History: Marijuana, Methamphetamine - Past Family History Mother Family Medical History: Cancer Additional Family Medical History / Comment(s): grandmother breast [place] Father Family Medical History: Myocardial Infarction ([place]) Additional Family Medical History / Comment(s): grandfather had [place] General Exam - General Exam Comments Initial Comments: GENERAL: Patient is well-developed and well-nourished. Patient is nontoxic and well- hydrated and is in no acute distress. ENT: Neck is soft and supple. No significant lymphadenopathy is noted. Oropharynx is clear. Moist mucous membranes. Neck has full range of motion without eliciting any pain. EYES: The sclera were anicteric and conjunctiva were pink and moist. Extraocular movements were intact and pupils were equal round and reactive to light. Eyelids were unremarkable. PULMONARY: Unlabored respirations. Good breath sounds bilaterally. No audible rales rhonchi or wheezing was noted. CARDIOVASCULAR: There is a regular rate and rhythm without any murmurs gallops or rubs. ABDOMEN: Soft and nontender with normal bowel sounds. SKIN: Skin is clear with no lesions or rashes and otherwise unremarkable. NEUROLOGIC: Patient is alert and oriented x3. Cranial nerves II through XII are grossly intact. Motor and sensory are also intact. Normal speech, volume and content. Symmetrical smile. MUSCULOSKELETAL: Normal extremities with adequate strength and full range of motion. LYMPHATICS: No significant lymphadenopathy is noted PSYCHIATRIC: Patient is babbling and not making any sense at times she is also going off on tangents about miscarriages and the likelihood of being clean from methamphetamines. Patient states she does not want to be here and has no complaints however she is prone to outbursts when asking very simple questions. Limitations: no limitations Course Vital Signs 04/08/24 06:43 Temperature 98.4 F Pulse Rate 67 Respiratory 18 Rate Blood Pressure 117/75 O2 Sat by Pulse 98 Oximetry Medical Decision Making - Medical Decision Making Was pt. sent in by a medical professional or institution (, PA, WINDOWS SYSTEMS ADMIN, urgent care, hospital, or penitentiary...) When possible be specific @ -No Did you speak to anyone other than the patient for history (EMS, parent, family, police, friend...)? What history was obtained from this source @ -Police brought the patient and gave the history as well as doing a petition Did you review nursing and triage notes (agree or disagree)? Why? @ -I reviewed and agree with nursing and triage notes Were old charts reviewed (outside hosp., previous admission, EMS record, old EKG, old radiological studies, urgent care reports/EKG's, penitentiary records)? Report findings @ -No old charts were reviewed Differential Diagnosis? @ -Differential Mental Health Depression, anxiety, bipolar, psychosis, schizophrenia, borderline personality, situational depression, adjustment disorder, behavioral disorder, brain tumor, malingering, substance abuse, encephalopathy, medication reaction, dementia, hypothyroidism, degenerative neurologic disorder, lupus.... This is not meant to be all-inclusive list EKG interpreted by me (3pts min.). @ -As above X-rays interpreted by me (1pt min.). @ -None done CT interpreted by me (1pt min.). @ -None done U/S interpreted by me (1pt. min.). @ -None done What testing was considered but not performed or refused? (CT, X-rays, U/S, labs)? Why? @ -None What meds were considered but not given or refused? Why? @ -None Did you discuss the management of the patient with other professionals (prof ivánionals i.e. , PA, WINDOWS SYSTEMS ADMIN, lab, RT, psych nurse, social sciences lecturer, etl tester, teacher, communications officer, case sealer)? Give summary @ -No Was smoking cessation discussed for >3mins.? @ -No Was critical care preformed (if so, how long)? @ -No Were there social determinants of health that impacted care today? How? (Homelessness, low income, unemployed, alcoholism, drug addiction, transportation, low edu. Level, literacy, decrease access to med. care, long-term, rehab)? @ -No Was there de-escalation of care discussed even if they declined (Discuss DNR or withdrawal of care, Hospice)? DNR status @ -No What co-morbidities impacted this encounter? (DM, HTN, Smoking, COPD, CAD, Cancer, CVA, ARF, Chemo, Hep., AIDS, mental health diagnosis, sleep apnea, morbid obesity)? @ -None Was patient admitted / discharged? Hospital course, mention meds given and route, prescriptions, significant lab abnormalities, going to OR and other pertinent info. @ -Patient continued to have tangential thinking and talking to herself while in the emergency department. Patient also often was not making sense when I did speak with her. The EPS came down and evaluated the patient and determined that the patient needed to be admitted Undiagnosed new problem with uncertain prognosis? @ -No Drug Therapy requiring intensive monitoring for toxicity (Heparin, Nitro, Insulin, Cardizem)? @ -No Were any procedures done? @ -No Diagnosis/symptom? @ -Acute psychosis Acute, or Chronic, or Acute on Chronic? @ -Acute Uncomplicated (without systemic symptoms) or Complicated (systemic symptoms)? @ -Complicated Side effects of treatment? @ -No Exacerbation, Progression, or Severe Exacerbation? @ -No Poses a threat to life or bodily function? How? (Chest pain, [place], [place], pneumonia, PE, COPD, DKA, ARF, appy, cholecystitis, CVA, Diverticulitis, Homicidal, Suicidal, threat to staff... and all critical care pts) @ -No Disposition Clinical Impression: Psychosis Disposition: ADMITTED IP TO THIS HOSP Referrals: None,Stated [Primary Care Provider] - 1-2 days Time of Disposition: 12:57
[2024-04-08] MEDS ORDERED: MAG HYDROX/AL HYDROX/SIMETH 355 ML BOTTLE PO PRN (15:27)
[2024-04-08] MEDS ORDERED: HALOPERIDOL LACTATE 5 MG/ML 1 ML VIAL IM PRN (15:27)
[2024-04-08] MEDS ORDERED: ACETAMINOPHEN TAB 325 MG TAB PO PRN (15:27)
[2024-04-08] MEDS ORDERED: IBUPROFEN 600 MG TAB PO PRN (15:27)
[2024-04-08] MEDS ORDERED: LORazepam 2 MG/ML INJ IM PRN (15:27)
[2024-04-08] MEDS ORDERED: MAGNESIUM HYDROXIDE 2,400 MG/30 ML CUP PO PRN (15:27)
[2024-04-08] MEDS: QUEtiapine 50 MG TAB PO SCH (21:28)
--- NOTE | 2024-04-09 01:24 | P.PN ---
Progress Note - Text Progress Note Date: 04/09/24 Attempted to see the patient in the mental health unit. The patient refused to be seen or be evaluated. Will attempt to see the patient again tomorrow.
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
[2024-04-09] MEDS: SERTRALINE 50 MG TAB PO SCH (13:39)
[2024-04-09] MEDS: risperiDONE 1 MG TAB PO SCH (13:40)
--- NOTE | 2024-04-10 00:29 | P.CONS ---
History of Present Illness - Reason for Consult Consult date: 04/10/24 - History of Present Illness The patient is a 28-year-old female with a PMH of nicotine dependence and bipolar disorder who had presented to the emergency room under police custody after she was found walking on the street without a shirt on. The patient had reported using methamphetamine. She reports feeling okay at the time of interview and had no active complaints. Denied chest discomfort, shortness of breath, fever, chills, cough, nausea, vomiting, abdominal pain, diarrhea. Does report marijuana and methamphetamine use. Denied alcohol or tobacco use. Review of systems: Pertinent positives and negatives as discussed in HPI, a complete review of systems was performed and all other systems are negative. Physical examination: General: non toxic, no distress, appears older than stated age, normal weight Derm: no unusual rashes/lesions, no unusual ecchymoses, warm, dry Head: atraumatic, normocephalic, symmetric Eyes: EOMI, no lid lag, anicteric sclera ENT: Nose and ears atraumatic, no thrush, no pharyngeal erythema Neck: trachea midline, supple Mouth: no lip lesion, mucus membranes moist Cardiovascular: S1S2 reg, no murmur, no edema Lungs: CTA bilateral, no rhonchi, no rales , no accessory muscle use Abdominal: soft, nontender to palpation, no guarding Ext: no gross muscle atrophy, no contractures, Neuro: No gross focal neuro deficits noted Psych: Alert, oriented, appropriate affect Assessment: Polysubstance abuse Psychosis Imaging: None performed Data Review: A1c 5.7 with respiratory viral panel negative Plan: Monitor for signs of withdrawal Defer management of psychosis to primary psychiatry service Thank you for allowing us to participate in the care of this patient. We will follow peripherally. Do not hesitate to contact us with questions. Someone can be reached from the [facility] hospitalist group at all hours of the day at [phone]. Past Medical History Past Medical History: No Reported History Additional Past Medical History / Comment(s): Obstetric history: 2 previous normal vaginal deliveries and 1 miscarriage at 7 weeks gestation. This is her fourth . She had care with me she waited to get her blood work done until a few weeks ago. Blood type is O+, antibodies negative, rubella immune, RPR and treponemal ab positive, hepatitis B-. Due to the posit ed syphilis status she was started on IM penicillin and a consult with [facility] was scheduled. History of Any Multi-Drug Resistant Organisms: None Reported Additional Past Surgical History / Comment(s): left hip surgery as an Past Anesthesia/Blood Transfusion Reactions: No Reported Reaction Smoking Status: Current every day smoker, Vaper - Past Family History Mother Family Medical History: Cancer Additional Family Medical History / Comment(s): grandmother breast CA Father Family Medical History: Myocardial Infarction ([place]) Additional Family Medical History / Comment(s): grandfather had [place] Medications and Allergies Home Medications Medication Instructions Recorded Confirmed Type Melatonin 10 mg PO HS #0 tab 12/31/23 04/08/24 Rx hydrOXYzine pamoate [Vistaril] 25 mg PO QID PRN 01/13/24 04/08/24 History buPROPion XL [Wellbutrin XL] 150 mg PO DAILY 15 Days #15 tab 03/22/24 04/08/24 Rx risperiDONE [RisperDAL] 0.5 mg PO HS 15 Days #15 tab 03/22/24 04/08/24 Rx traZODone HCL [Desyrel] 50 mg PO HS PRN 15 Days #15 tab 03/22/24 04/08/24 Rx QUEtiapine [SEROquel] 50 mg PO HS 04/08/24 04/08/24 History Allergies Allergy/AdvReac Type Severity Reaction Status Date / Time No Known Allergies Allergy Verified 04/08/24 14:49
[2024-04-10 06:02] VITALS: RESP 19; TEMP 97.6
--- NOTE | 2024-04-10 10:26 | P.PN ---
Subjective Progress Note Date: 04/10/24 Principal diagnosis: psychosis NOS ssubjective: The patient can readily but was sleeping at 10:00 in the morning and did continue to look sleepy. She wanted to know she was still taking Wellbutrin. She said that in the past she thought that did help with depression. She says that the addition of the Risperdal has not helped her with feeling calmer. She is on 1 mg twice a day she has also been started on Zoloft but that is in a medicine. She says she was able sleep last night that her appetite is okay. Objective she just looks really sleepy and slow I did not see any muscle stiffness. I do not see responding to voices.self-care was minimal she was somewhat cold she came down the peres wearing a blanket. assessment she seems to be tolerating the risperidone no constipation dry mouth dizziness or other side effects but has not given her much relief of the anxiety racing thoughts. Plan increase the risperidone to 1 morning and 2 at night and check with her tomorrow we might go to 1 and 3's it does work pretty fast to give some relief of anxiety. Objective - Vital Signs Vital signs: Vital Signs Temp 97.6 F 04/10/24 06:00 Pulse 62 04/10/24 06:00 Resp 19 04/10/24 06:00 BP 87/54 04/10/24 06:00 Pulse Ox 97 04/10/24 06:00 FiO2
[2024-04-10] MEDS: LORazepam 1 MG TAB PO PRN (12:50)
[2024-04-10] MEDS: risperiDONE 2 MG TAB PO SCH (20:09)
[2024-04-10] MEDS: traZODone HCL 50 MG TAB PO PRN (20:59)
[2024-04-11] MEDS: risperiDONE 1 MG TAB PO SCH ×2 (08:48→20:11)
[2024-04-11 08:49] VITALS: BP 90/60; PULSE 98
--- NOTE | 2024-04-11 08:54 | P.PN ---
Subjective Progress Note Date: 04/11/24 Principal diagnosis: psychosis NOS ssubjective: The patient can readily but was sleeping at 10:00 in the morning and did continue to look sleepy.She says that she can't tell if the risperidone is helping because she is sleeping all night and all day. She wanted to know she was still taking Wellbutrin. She said that in the past she thought that did help with depression. She that her appetite is okay.other than the sleepiness she denies any side effects from the medicine no stiffness no constipation no dizziness. Objective: she just looks really sleepy and slow I did not see any muscle stiffness. I do not see responding to voices.self-care was minimal.she denies any suicidality or homicidality or anxiety just feels a little slow down. assessment: we need to decrease the daytime sleepiness so she can assess what her baseline functioning is Plan increase the risperidone to 3 mg just at night. Objective - Vital Signs Vital signs: Vital Signs Temp 97.6 F 04/10/24 06:00 Pulse 98 04/11/24 08:48 Resp 19 04/10/24 06:00 BP 90/60 04/11/24 08:48 Pulse Ox 97 04/10/24 06:00 FiO2
[2024-04-11] MEDS: haloperidoL 5 MG TAB PO PRN (18:46)
[2024-04-12] MEDS ORDERED: SERTRALINE 50 MG TAB ONE (08:11)
[2024-04-12] MEDS ORDERED: ACETAMINOPHEN TAB 325 MG TAB ONE (17:44)
[2024-04-12] MEDS ORDERED: LORazepam 1 MG TAB ONE (18:44)
[2024-04-12] MEDS ORDERED: risperiDONE 1 MG TAB ONE (19:56)
[2024-04-13] MEDS ORDERED: SERTRALINE 50 MG TAB ONE ×2 (09:10→09:39)
[2024-04-13] MEDS ORDERED: LORazepam 1 MG TAB ONE ×2 (12:36→18:41)
[2024-04-13] MEDS ORDERED: ACETAMINOPHEN TAB 325 MG TAB ONE (18:42)
[2024-04-13] MEDS ORDERED: traZODone HCL 50 MG TAB ONE (21:35)
[2024-04-14] MEDS ORDERED: SERTRALINE 100 MG TAB ONE ×2 (07:49)
[2024-04-14] MEDS ORDERED: ACETAMINOPHEN TAB 325 MG TAB ONE (09:55)
[2024-04-14] MEDS ORDERED: LORazepam 1 MG TAB ONE ×2 (10:47→21:22)
[2024-04-14] MEDS ORDERED: risperiDONE 2 MG TAB ONE ×2 (20:34)
[2024-04-14] MEDS ORDERED: traZODone HCL 50 MG TAB ONE (21:22)
[2024-04-14] MEDS ORDERED: hydrOXYzine pamoate 25 MG CAP ONE ×4 (23:59)
[2024-04-15] MEDS ORDERED: SERTRALINE 100 MG TAB ONE ×2 (07:48)
[2024-04-15] MEDS ORDERED: SERTRALINE 50 MG TAB ONE (07:49)
[2024-04-15] MEDS ORDERED: LORazepam 1 MG TAB ONE ×2 (09:19→16:59)
[2024-04-15] MEDS ORDERED: haloperidoL 5 MG TAB ONE (11:03)
[2024-04-15] MEDS ORDERED: risperiDONE 1 MG TAB ONE (19:53)
[2024-04-15] MEDS ORDERED: hydrOXYzine pamoate 25 MG CAP ONE ×2 (19:55)
[2024-04-15] MEDS ORDERED: traZODone HCL 50 MG TAB ONE (20:25)
[2024-04-16] MEDS ORDERED: SERTRALINE 50 MG TAB ONE (07:45)
[2024-04-16] MEDS ORDERED: SERTRALINE 100 MG TAB ONE ×2 (07:45)
[2024-04-16] MEDS ORDERED: LORazepam 1 MG TAB ONE ×2 (11:49→20:34)
[2024-04-16] MEDS ORDERED: hydrOXYzine HCL 25 MG TAB ONE (16:15)
[2024-04-16] MEDS ORDERED: haloperidoL 5 MG TAB ONE (18:38)
[2024-04-16] MEDS ORDERED: IBUPROFEN 600 MG TAB PO ONE (19:05)
[2024-04-16] MEDS ORDERED: risperiDONE 1 MG TAB ONE (19:40)
[2024-04-16] MEDS ORDERED: traZODone HCL 100 MG TAB ONE ×2 (20:34)
[2024-04-17] MEDS ORDERED: SERTRALINE 100 MG TAB ONE ×2 (07:33)
[2024-04-17] MEDS ORDERED: LORazepam 1 MG TAB ONE (13:24)
[2024-04-17] MEDS ORDERED: haloperidoL 5 MG TAB ONE (14:38)
[2024-04-17] MEDS ORDERED: traZODone HCL 100 MG TAB ONE ×2 (21:56)
[2024-04-18] MEDS ORDERED: SERTRALINE 100 MG TAB ONE ×2 (07:39)
[2024-04-18] MEDS ORDERED: hydrOXYzine pamoate 25 MG CAP ONE ×2 (15:52)
[2024-04-18] MEDS ORDERED: haloperidoL 5 MG TAB ONE (15:52)
[2024-04-18] MEDS ORDERED: NICOTINE GUM (POLACRILEX) 2 MG GUM BUCCAL ONE ×4 (16:16→18:41)
[2024-04-18] MEDS ORDERED: traZODone HCL 100 MG TAB ONE ×2 (20:43)
[2024-04-18] MEDS ORDERED: IBUPROFEN 600 MG TAB PO ONE (22:15)
[2024-04-19] MEDS ORDERED: SERTRALINE 100 MG TAB ONE ×2 (07:53)
== END 2024-04-19 10:38 | disposition home or self-care (01) | DRG 751 ==
LOC: EC 06:42 → 3MHU 15:20
PROVIDERS: ADMIT Psychiatry & Neurology Psychiatry; ATTEND Psychiatry & Neurology Psychiatry
DX: F29 Unspecified psychosis not due to a substance or known physiological condition (principal); F15.10 Other stimulant abuse, uncomplicated; B19.10 Unspecified viral hepatitis B without hepatic coma; R45.851 Suicidal ideations; F17.210 Nicotine dependence, cigarettes, uncomplicated; A53.9 Syphilis, unspecified; F41.9 Anxiety disorder, unspecified; T43.596A Underdosing of other antipsychotics and neuroleptics, initial encounter; T43.226A Underdosing of selective serotonin reuptake inhibitors, initial encounter; Z79.899 Other long term (current) drug therapy; Z56.0 Unemployment, unspecified; Z91.51 Personal history of suicidal behavior; Z63.32 Other absence of family member; Z65.8 Other specified problems related to psychosocial circumstances; Z87.59 Personal history of other complications of pregnancy, childbirth and the puerperium; Z75.1 Person awaiting admission to adequate facility elsewhere
CPT/HCPCS: 82075; 83036; 84703; 87635; 99285